=== PATIENT | female | born 1935 | race Hispanic/Latino ===

== ENCOUNTER 2018-02-07 12:14 | Observation (INO) | payer MEDICARE ==
[~2018-02-07] VITALS: Ht 165.1 cm; Wt 110.4 kg
[~2018-02-07 12:14] MED LIST: ASPIRIN81 MG PO; BENZONATATE200 MG PO; CARAFATE1 GM PO; CLONIDINE HCL0.1 MG PO; DYMISTA NASAL S23 GM INH; FLUTICASONE PRO16 GM INH; Furosemide IV; HYDROCHLOROTHIA25 MG PO; HYDROCORTISONE ACETATE RC; LASIX20 MG PO; LEVAQUIN500 MG PO; LEVOTHYROXINE75 MCG PO; LIDOCAINE700 MG TD; METOPROLOL TART50 MG PO; NORVASC10 MG PO; PREDNISONE20 MG PO; PRILOSEC OTC20 MG PO; PROAIR HFA INH8.5 GM INH; PROTONIX40 MG/ML PO; Simethicone PO; TYLENOL # 31 EA PO; ULTRAM50 MG PO
[2018-02-07] MEDS ORDERED: ONDANSETRON HCL INJ 2 MG/ML VIAL IV STA ×2 (12:43→12:45)
[2018-02-07] MEDS ORDERED: MORPHINE SULFATE INJ 4 MG/ML INJ IV STA (12:43)
[2018-02-07] MEDS ORDERED: ASPIRIN 81 MG CHEW TAB PO ONE (12:45)
[2018-02-07] MEDS ORDERED: MORPHINE SULFATE 2 MG/ML SYR IV STA (12:45)
[2018-02-07] MEDS ORDERED: DIATRIZOATE MEGL/DIATRIZOA SOD 30 ML BTL PO ONE (12:50)
[2018-02-07 13:05] LABS: BASOPHILS % 0.2 % (0.0-1.0); EOSINOPHILS # (AUTO) 0.1 (0.0-0.4); EOSINOPHILS % 0.5 % (0.0-6.0); HEMATOCRIT 36.8 % (34.2-44.1); HEMOGLOBIN 12.7 g/dL (12.0-16.0); LYMPHOCYTES # (AUTO) 0.9 (1.0-3.2); LYMPHOCYTES % 8.1 % (18.0-39.1); MEAN CORPUSCULAR HEMOGLOBIN 32.3 pg (28-32); MEAN CORPUSCULAR HGB CONC 34.5 g/dL (31-35); MEAN CORPUSCULAR VOLUME 93.6 fL (81-99); MONOCYTES # (AUTO) 0.8 (0.2-0.8); MONOCYTES % 7.5 % (4.4-11.3); NEUTROPHILS # (AUTO) 9.2 (2.1-6.9); PLATELET COUNT 156 x10e3/uL (140-360); RED BLOOD COUNT 3.93 x10e6/uL (3.6-5.1); RED CELL DISTRIBUTION WIDTH 12.7 % (11.7-14.4)
[2018-02-07] MEDS ORDERED: HYDROMORPHONE 1MG/1ML INJ IV STA (13:12)
[2018-02-07 13:16] LABS: ALBUMIN 3.7 g/dL (3.5-5.0); ALBUMIN/GLOBULIN RATIO 1.1 (0.8-2.0); ANION GAP 15.5 mmol/L (8-16); CREATININE, SERUM 0.98 mg/dL (0.57-1.11); POTASSIUM 3.5 mmol/L (3.5-5.1)
[2018-02-07 13:22] LABS: CREATINE KINASE MB 1.2 ng/mL (0-5.0)
--- NOTE | 2018-02-07 13:40 | Diagnostic Imaging Report ---
PROCEDURE: A single AP view of the chest. COMPARISON: Chest radiograph 01/24/2017 INDICATIONS: RIGHT SIDE ABDOMEN PAIN FINDINGS: Lines/tubes: None. Lungs: The lungs are well inflated and clear. There is no evidence of pneumonia or pulmonary edema. Pleura: There is no pleural effusion or pneumothorax. Heart and mediastinum: Aortic arch calcifications. Borderline enlargement of the cardiac silhouette. Bones: No acute bony abnormality. Ligamentous anchor projects over the left humeral head. Upper abdomen: No free air under the diaphragm. IMPRESSION: No acute cardiopulmonary disease. Dictated by: Silviano Boone M.D. on 02/07/2018 at 13:46 Electronically approved by: Silviano Boone M.D. on 02/07/2018 at 13:46
--- NOTE | 2018-02-07 14:45 | Diagnostic Imaging Report ---
PROCEDURE: CT ABDOMEN AND PELVIS WITHOUT CONTRAST TECHNIQUE: The abdomen and pelvis were scanned utilizing a multidetector helical scanner from the diaphragm to the lesser trochanter after the oral administration of 900 cc of Readi-Cat. No IV contrast was administered. Coronal and sagittal multiplanar reformations were obtained. DLP: 754.02 mGy-cm COMPARISON: CT abdomen and pelvis 12/30/2016 INDICATIONS: BLOATING, ABDOMINAL PAIN FINDINGS: ABSENCE OF INTRAVENOUS CONTRAST DECREASES SENSITIVITY FOR DETECTION OF FOCAL LESIONS AND VASCULAR PATHOLOGY. LOWER THORAX: Normal. HEPATOBILIARY: No focal hepatic lesions. No biliary ductal dilatation. Cholecystectomy. SPLEEN: No splenomegaly. PANCREAS: No focal masses or ductal dilatation. ADRENALS: Stable left adrenal 1.5 cm adenoma. No right renal nodules. KIDNEYS/URETERS: No hydronephrosis, stones, or solid mass lesions. Right renal 1.8 cm and 2.4 cm fluid attenuating lesions likely represent cysts, incompletely evaluated without contrast. PELVIC ORGANS/BLADDER: Hysterectomy. No adnexal masses. PERITONEUM / RETROPERITONEUM: No free air or fluid. LYMPH NODES: No lymphadenopathy. VESSELS: Severe atherosclerotic calcifications of the non-aneurysmal abdominal aorta. GI TRACT: Filling defect in the dependent aspect of the stomach may represent ingested contents. No distention or wall thickening. Diverticulosis. Appendix not visualized. BONES AND SOFT TISSUES: Scattered degenerative changes of the spine. IMPRESSION: 1. No acute non-contrast CT abnormalities in the abdomen and pelvis. 2. Left adrenal adenoma. 3. Colonic diverticulosis. Dictated by: Silviano Boone M.D. on 02/07/2018 at 14:51 Electronically approved by: Silviano Boone M.D. on 02/07/2018 at 14:51
[2018-02-07] MEDS ORDERED: ULTRAM50 MG PO (14:50)
[2018-02-07] MEDS ORDERED: SODIUM CHLORIDE 0.9% 1000ML 1,000 ML IV SCH (15:00)
[2018-02-07 15:23] LABS: BILIRUBIN,URINE NEGATIVE (NEGATIVE); CLARITY,URINE SL CLOUDY (CLEAR); COLOR,URINE YELLOW (YELLOW); KETONES,URINE NEGATIVE (NEGATIVE); LEUKOCYTE ESTERASE ,URINE TRACE (NEGATIVE); NITRITE,URINE NEGATIVE (NEGATIVE); PROTEIN,URINE DIPSTICK NEGATIVE (NEGATIVE); URINE UROBILINOGEN 0.2 mg/dL (0.2 - 1)
[2018-02-07 15:28] LABS: BACTERIA,URINE FEW /HPF; EPITHELIAL CELLS,URINE RARE /LPF; MUCUS,URINE FEW (RARE)
[2018-02-07] MEDS ORDERED: MORPHINE SULFATE 2 MG/ML SYR IV PRN (16:00)
[2018-02-07] MEDS: D5.45%NS/KCL 20MEQ 1,000 ML IV SCH (16:21)
[2018-02-07] MEDS ORDERED: HYDROCHLOROTHIA50 MG PO (16:54)
[2018-02-07] MEDS ORDERED: POTASSIUM CHLO10 ME1 PO (16:54)
[2018-02-07 17:27] VITALS: BP 166/80
[2018-02-07] MEDS: MORPHINE SULFATE INJ 4 MG/ML INJ IV PRN (17:37)
[2018-02-07] MEDS: ONDANSETRON HCL INJ 2 MG/ML VIAL IV PRN (17:37)
[2018-02-07 21:00] VITALS: BP 131/60
[2018-02-08] VITALS (7 sets, daily range): BP systolic 120–149; BP diastolic 56–78
[2018-02-08] MEDS: MORPHINE SULFATE INJ 4 MG/ML INJ IV PRN (02:46)
[2018-02-08] MEDS: D5.45%NS/KCL 20MEQ 1,000 ML IV SCH ×3 (02:47→14:53)
--- NOTE | 2018-02-08 04:37 | History and Physical ---
PRIMARY CARE DOCTOR: Dr. Manpreet Armando with [facility] HOSPITAL COVERAGE: Dr. Timbo Craft HISTORY OF PRESENT ILLNESS: Mrs. Swann is a pleasant 82-year-old female with abdominal pain. The patient has had intermittent abdominal pain for at least 5 or 6 years that she can recall. She was hospitalized once in 2016 for similar syndrome. She saw a school counsellor one time with [facility] after discharge for which she was given Pepto-Bismol, but she never finished followup as the patient allegedly had some hip problems that she had to deal with. The patient reportedly with a history of possible peptic ulcer disease. During this occasion, the patient has been having 1-1/2 days of increasing abdominal pain. There is a pattern of worsening. Pain is becoming very sharp. A little bit of nausea with no rosa emesis. No constipation. No diarrhea. She comes to the emergency room. Chest x-ray is mostly with clear lungs, except with an elevated left hemidiaphragm. CT of the abdomen and pelvis shows mostly unremarkable findings with a left adrenal adenoma, very small. Of note, lactic acid was 21. The patient with diffuse abdominal pain. She is admitted. PAST MEDICAL HISTORY: Hypertension, chronic back pain, gastritis versus peptic ulcer disease, mild asthma, and mild allergies. MEDICATIONS: List reviewed per electronic record. ALLERGIES: LOSARTAN AND IODINE ARE ALLERGIES. SOCIAL HISTORY: No smoking. No drinking. No drugs. FAMILY HISTORY: Noncontributory to this. REVIEW OF SYSTEMS GENERAL: No weight changes. OPHTHALMOLOGIC: No double vision. HEENT: No dry mouth. ENDOCRINE: No known thyroid disease. PULMONARY: No COPD. CARDIAC: No heart attacks. GI: No blood in stool. : No kidney stones. DERMATOLOGIC: No rashes. NEUROLOGIC: No seizures. PSYCHIATRIC: No depression. PHYSICAL EXAMINATION VITALS: Currently afebrile. Vital signs noted per electronic record. GENERAL: No acute distress. Alert and calm. However, she is in pain from moving her abdomen. HEENT: Normocephalic and atraumatic. NECK: Supple. Throat midline. LUNGS: Bilateral air entry. Few decreased breath sounds throughout especially at the bases. CARDIOVASCULAR: S1 and S2. No murmurs, rubs or gallops. ABDOMEN: Soft and nontender. Of note, the abdomen is with a little bit of guarding with some diffuse pain on palpation, although not surgical right now. EXTREMITIES: No clubbing. No cyanosis. There is no edema. INTEGUMENT: No rash. No purpura. LABS: Potassium 2.5, BUN 19, creatinine 1, bicarbonate 27. White count 11, hematocrit 27 and platelets 156,000. Albumin 3.7. Lactic acid 21. Urinalysis with 11-20. Blood culture times 2 pending. LFTs mostly unremarkable. IMPRESSION AND PLAN 1. Diffuse abdominal pain, possibly early peritonitis. 2. Urinary tract infection with 11-20 white cells. 3. Lactic acidosis. 4. Reported versus peptic ulcer disease. 5. Obesity. 6. Small left adrenal adenoma. 7. Hypertension. 8. Chronic back pain. At this time, continue serial followup. Repeat lactic acid. Continue IV fluids. Continue to get and provide antibiotics for presumptive infection. The patient will have serial followup. GI will be consulted. Thank you very much, Dr. Armando, for allowing me to participate in the care of Mrs. Swann. Please call for questions. Job#: [id number] DC
[2018-02-08 06:25] LABS: HIV 1&2 AB SCREEN NON-REACTIVE (NONREACTIVE)
[2018-02-08] MEDS: PIPER-TAZ 3.375 GM 50 ML IV SCH ×4 (06:43→23:37)
--- NOTE | 2018-02-08 10:58 | Diagnostic Imaging Report ---
PROCEDURE:ABDOMEN COMP INCL UPR OR DECUB TECHNIQUE:Flat and erect abdomen. INDICATION:Bloating with abdominal pain COMPARISON:[facility], CT, CT ABDOMEN/PELVIS WO, 02/07/2018, 14:26. FINDINGS:Contrast outlines the colon which is nondilated. Clips in the right upper quadrant from a previous cholecystectomy are noted. No subdiaphragmatic air. No bowel dilatation. Osseous structures reveal degenerative changes of the spine. CONCLUSION:Residual contrast within the colon from a prior CT of the abdomen/pelvis without significant abnormality. Je Butt D.O. Dictated by: Je Butt D.O. on 02/08/2018 at 11:04 Electronically approved by: Je Butt D.O. on 02/08/2018 at 11:04
[2018-02-08] MEDS: ENOXAPARIN SOD INJ 40 MG/0.4 ML SYR SC SCH (17:45)
[2018-02-09] MEDS ORDERED: PANTOPRAZOLE 40 MG 10ML VIAL IV STA (00:09)
[2018-02-09] MEDS: D5.45%NS/KCL 20MEQ 1,000 ML IV SCH ×4 (01:07→23:40)
[2018-02-09 05:05] VITALS: BP 126/62
[2018-02-09] MEDS: PIPER-TAZ 3.375 GM 50 ML IV SCH ×4 (05:32→23:45)
[2018-02-09 08:14] VITALS: BP 141/63
[2018-02-09] MEDS: PANTOPRAZOLE 40 MG 10ML VIAL IV SCH ×2 (10:01→21:01)
[2018-02-09 13:05] VITALS: BP 136/64
--- NOTE | 2018-02-09 13:31 | Operative Report ---
DATE OF PROCEDURE: February 07, 2018 REFERRING PHYSICIAN: Dr. Hardwick PROCEDURE PERFORMED: Esophagogastroduodenoscopy with biopsies. INDICATIONS FOR EGD: Upper abdominal pain. History of heartburn and indigestion. MEDICATION: Patient was done under MAC. Please see anesthesiologist's note. PROCEDURE: With the patient in the left lateral decubitus position, the flexible fiberoptic Olympus gastroscope was introduced into the esophagus under direct visualization without any difficulty. There was some patchy erythema noted in the distal esophagus. The scope was then advanced with ease into the stomach. Mucosa overlying the antrum and the body revealed some patchy intense erythema and low-grade edema, and biopsies were obtained and sent to stain for H. pylori. Pylorus appeared to be of normal contour and shape. It was intubated with ease, and the scope was advanced all the way to the 2nd portion of the duodenum. The scope was then withdrawn slowly. Mucosa overlying the proximal 2nd portion and the duodenal bulb appeared to be within normal limits. The scope was then withdrawn back into the stomach and retroflexed. Mucosa overlying the fundus and the cardia appeared to be within normal limits. The scope was then straightened out. The stomach was decompressed. The scope was subsequently withdrawn. Patient tolerated the procedure well. IMPRESSION 1. Distal esophagitis, mild. 2. Gastritis, biopsied. Biopsies sent to stain for H. pylori. PLAN: Follow up histology. Initiate Protonix 40 mg 1 p.o. q.a.m. a.c. Job#: [id number] cc:MEGGAN HARDWICK M.D.
[2018-02-09] MEDS ORDERED: FENTANYL CITRATE/PF 100MCG/2 ML INJ ONE (15:06)
--- NOTE | 2018-02-09 17:09 | Diagnostic Imaging Report ---
EXAMINATION: MRI of the thoracic and lumbar spine without contrast HISTORY: Back pain radiating to the upper and lower extremities, abdominal pain COMPARISON: Abdomen CT and 12/30/2016 TECHNIQUE: Sagittal T1, T2, STIR; axial T2 and proton density. FINDINGS: It is assumed that there are 5 lumbar vertebrae. Curvature/Alignment: Normal thoracic kyphosis and lumbar lordosis. Vertebrae: No evidence of recent fracture, infection, or neoplasm. Thoracic spinal cord: Normal morphology and signal intensity. Conus: Normal, terminating at L1 Cauda equina: Unremarkable. Lower thoracic: Unremarkable. Paraspinal soft tissues: Partially visualized T2 hyperintense probable cyst in the right kidney, please see dictation of abdomen CT on 12/30/2016 for further detail.. Degenerative changes: Thoracic spine: No significant degenerative changes, no disc herniations, no spinal canal or foraminal stenosis. L1-L2: Unremarkable. L2-L3: Unremarkable. L3-L4: Bilateral facet arthrosis with minimal anterolisthesis with minimal canal narrowing. No significant canal or foraminal stenoses, no evidence of nerve root compression. L4-L5: Minimal symmetric disc bulge and facet arthrosis without canal or foraminal stenoses L5-S1: Moderate facet arthrosis without canal or foraminal stenosis. Minimal bilateral facet joint effusion. Sacroiliac joints: Mild to joint changes bilaterally IMPRESSION: 1. No significant degenerative changes of the thoracic or lumbar spine, particularly no disc herniations, spinal canal or foraminal stenosis. 2. Normal thoracic spinal cord, conus medullaris and cauda equina nerve roots. No cord compression. 3. Minimal degenerative spondylolisthesis at L4-L5 is unchanged from abdomen CT on 12/30/2016. Signed by: Dr. Elisabet Silver M.D. on 02/09/2018 5:06 PM
[2018-02-09] MEDS: ENOXAPARIN SOD INJ 40 MG/0.4 ML SYR SC SCH (17:15)
[2018-02-09] MEDS ORDERED: PROPOFOL IV EMULSION 10 MG/ML 50 ML VIAL ONE (18:12)
[2018-02-09 19:30] VITALS: BP 130/64
[2018-02-09 21:41] VITALS: BP 130/64
[2018-02-09] MEDS ORDERED: MONTELUKAST SOD10 MG PO (22:01)
[2018-02-09] MEDS ORDERED: CETIRIZINE HCL10 MG PO (22:01)
[2018-02-09] MEDS: MORPHINE SULFATE INJ 4 MG/ML INJ IV PRN (23:46)
[2018-02-09] MEDS: ONDANSETRON HCL INJ 2 MG/ML VIAL IV PRN (23:46)
[2018-02-10] VITALS (7 sets, daily range): BP systolic 132–195; BP diastolic 61–90
--- NOTE | 2018-02-10 02:21 | Progress Note ---
DATE: February 09, 2018 INTERNAL MEDICINE PROGRESS NOTE This is Dr. Craft coverage. SUBJECTIVE: Ms. Swann was seen and examined at bedside. She continues on IV fluids at 100 mL per hour. Lot of radicular pains. There is some headache although slightly improved from previous. Patient at this time continues with assessment, and due to the pain she underwent emergency endoscopy today. REVIEW OF SYSTEMS: No bleeding, no rash. OBJECTIVE: VITAL SIGNS: Afebrile, vital signs noted per electronic record. GENERAL: No acute distress, although she is in pain when moving excessively or to the touch. HEENT: Normocephalic, atraumatic. NECK: Supple. Throat midline. LUNGS: Bilateral air entry, limited air entry at the bases especially, but clear. CARDIOVASCULAR: S1, S2. No murmurs, rubs, or gallops. ABDOMEN: Soft, nontender. EXTREMITIES: No clubbing, no cyanosis, there is no edema. INTEGUMENT: No rash, no purpura. LABS: No new updates. IMPRESSION AND PLAN: 1. Abdominal pain, not otherwise specified, improved. 2. Lactic acidosis, resolved. 3. Treat for severe sepsis, urinary tract infection as per urinalysis. 4. Hypersensitivity, possible neuropathic pain. 5. Abnormal esophagogastroduodenoscopy with mild esophagitis and mild gastropathy. Esophagogastroduodenoscopy today noted. Await biopsy report. Proton pump inhibitor will be continued. Empirical antibiotics will be continued. Follow up the urinary culture which is growing gram-negative rods. Adjust antibiotics if needed. Start some pain medications and consider gabapentin or Lyrica. Advance diet beyond clear after endoscopy. Will follow along closely. Job#: [id number]
[2018-02-10] MEDS: PIPER-TAZ 3.375 GM 50 ML IV SCH ×2 (05:31→11:40)
[2018-02-10 06:02] LABS: BASOPHILS % 0.2 % (0.0-1.0); EOSINOPHILS # (AUTO) 0.3 (0.0-0.4); EOSINOPHILS % 4.8 % (0.0-6.0); LYMPHOCYTES # (AUTO) 1.8 (1.0-3.2); LYMPHOCYTES % 29.8 % (18.0-39.1); MONOCYTES # (AUTO) 0.8 (0.2-0.8); MONOCYTES % 13.4 % (4.4-11.3); NEUTROPHILS # (AUTO) 3.1 (2.1-6.9); NEUTROPHILS % 51.3 % (38.7-80.0)
[2018-02-10 06:27] LABS: HEMATOCRIT 31.2 % (34.2-44.1); HEMOGLOBIN 10.4 g/dL (12.0-16.0); MEAN CORPUSCULAR HEMOGLOBIN 32.3 pg (28-32); MEAN CORPUSCULAR HGB CONC 33.3 g/dL (31-35); MEAN CORPUSCULAR VOLUME 96.6 fL (81-99); PLATELET COUNT 131 x10e3/uL (140-360); RED BLOOD COUNT 3.23 x10e6/uL (3.6-5.1); RED CELL DISTRIBUTION WIDTH 12.9 % (11.7-14.4)
[2018-02-10] MEDS: METOPROLOL TARTRATE 50 MG TAB PO SCH ×2 (08:23→16:46)
[2018-02-10] MEDS: LORATADINE 10 MG TAB PO SCH (08:23)
[2018-02-10] MEDS: VENLAFAXINE HCL 37.5MG XR CAP PO SCH (08:23)
[2018-02-10] MEDS: PANTOPRAZOLE 40 MG 10ML VIAL IV SCH ×2 (08:23→21:02)
[2018-02-10] MEDS: D5.45%NS/KCL 20MEQ 1,000 ML IV SCH ×2 (08:24→16:45)
[2018-02-10] MEDS ORDERED: NON-FORMULARY MEDICATION (Cetirizine Hcl 1 TAB) PO SCH (09:00)
[2018-02-10] MEDS ORDERED: KETOROLAC TROMETHAMINE 30 MG/ML VIAL IV NR (15:30)
[2018-02-10] MEDS: ALBUTEROL SULFATE HFA 8GM INHALATION AEROSOL INH PRN (15:50)
[2018-02-10] MEDS: MEROPENEM 500 MG VIAL IV SCH ×2 (16:45→21:03)
[2018-02-10] MEDS: ENOXAPARIN SOD INJ 40 MG/0.4 ML SYR SC SCH (16:45)
[2018-02-10] MEDS: SIMETHICONE 80 MG CHEW PO SCH ×2 (16:54→21:02)
--- NOTE | 2018-02-10 18:08 | Diagnostic Imaging Report ---
EXAM: ABDOMEN-1VIEW (KUB), DATE: 02/10/2018 3:19 PM INDICATION: Abdominal pain. COMPARISON: 02/08/18. FINDINGS: LINES/TUBES: None BOWEL PATTERN: No evidence for obstruction. Residual contrast within extensive descending and sigmoid colon diverticulosis. Volume of contrast has decreased since the prior examination. SOFT TISSUES: No abnormal calcifications. No mass effect. LUNG BASES: Not included BONES: No acute findings. IMPRESSION: Nonobstructive bowel gas pattern. Extensive colonic diverticulosis. Signed by: Dr. Anna Liu M.D. on 02/10/2018 6:05 PM
[2018-02-10] MEDS ORDERED: MONTELUKAST SODIUM 10 MG TAB PO SCH (21:00)
[2018-02-10] MEDS ORDERED: MEROPENEM 500MG 500 MG in SODIUM CHLORIDE 0.9% 50ML 50 ML IV SCH (22:00)
[2018-02-11] VITALS: BP 189/80
[2018-02-11] MEDS: ALBUTEROL SULFATE HFA 8GM INHALATION AEROSOL INH PRN (00:15)
[2018-02-11] MEDS ORDERED: NIFEDIPINE CR 30 MG TAB PO ONE (00:30)
[2018-02-11] MEDS ORDERED: LOSARTAN POTASSIUM 100 MG TAB PO ONE (00:30)
[2018-02-11] MEDS: D5.45%NS/KCL 20MEQ 1,000 ML IV SCH (03:55)
[2018-02-11] MEDS: ONDANSETRON HCL INJ 2 MG/ML VIAL IV PRN (04:31)
[2018-02-11] MEDS: MORPHINE SULFATE INJ 4 MG/ML INJ IV PRN (04:31)
[2018-02-11] MEDS: MEROPENEM 500 MG VIAL IV SCH ×2 (05:01→14:30)
[2018-02-11 05:37] LABS: ANION GAP 12.9 mmol/L (8-16); BLOOD UREA NITROGEN < 5 mg/dL (7-26); CALCIUM 8.9 mg/dL (8.4-10.2); CARBON DIOXIDE 28 mmol/L (22-29); CHLORIDE 103 mmol/L (98-107); CREATININE, SERUM 0.82 mg/dL (0.57-1.11); EST GLOMERULAR FILTRATION RATE > 60 ML/MIN (60-); GLUCOSE 109 mg/dL (74-118); POTASSIUM 3.9 mmol/L (3.5-5.1); SODIUM 140 mmol/L (136-145)
[2018-02-11 05:39] LABS: BUN/CREATININE RATIO 6 (6-25)
[2018-02-11 06:13] VITALS: BP 138/65
[2018-02-11 07:38] VITALS: BP 138/65
[2018-02-11] MEDS: LORATADINE 10 MG TAB PO SCH (08:21)
[2018-02-11] MEDS: VENLAFAXINE HCL 37.5MG XR CAP PO SCH (08:21)
[2018-02-11] MEDS: METOPROLOL TARTRATE 50 MG TAB PO SCH (08:21)
[2018-02-11] MEDS: SIMETHICONE 80 MG CHEW PO SCH ×2 (08:21→13:00)
[2018-02-11] MEDS: PANTOPRAZOLE 40 MG 10ML VIAL IV SCH (08:21)
[2018-02-11 08:37] VITALS: BP 156/70
[2018-02-11] MEDS ORDERED: LOSARTAN POTASSIUM 100 MG TAB PO SCH (09:00)
[2018-02-11] MEDS ORDERED: GABAPENTIN 300 MG CAP PO SCH (09:00)
[2018-02-11 11:56] VITALS: BP 128/58
[2018-02-11] MEDS ORDERED: PROCARDIA XL30 MG PO (13:40)
--- NOTE | 2018-02-11 15:02 | Discharge Summary ---
PR[facility] CARE DOCTOR[facility] FINAL DIAGNOSIS: Abdominal pain. SECONDARY DIAGNOSES 1. Uncontrolled hypertension, better. 2. Mild distal esophagitis and gastritis per esophagogastroduodenoscopy. 3. 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 4. Morbid obesity. CONSULTANTS: Dr. Akins, GI. PROCEDURES/STUDIES PERFORMED 1. Esophagogastroduodenoscopy. 2. Abdominal computerized tomography. 3. MRI of the spine. HISTORY: Per H and P. HOSPITAL COURSE: The patient was admitted for abdominal pain workup. Abdominal CT with p.o. contrast only was unremarkable. EGD was performed with the above results. PPI was started. Biopsy was taken. However, results are still pending. The patient will follow up with Dr. Akins if this is allowed by [facility]. If not, she will follow up with [facility] doctor. For her uncontrolled hypertension, nifedipine XL was started. Her blood pressure is better. She also has ESBL Klebsiella on urine culture. However, it is only 10,000 to 50,000, and her UA only shows trace leukocyte esterase with 10-20 wbcs. The patient is completely asymptomatic. Therefore, I feel that this is a colonization. The patient received 3 doses of meropenem. I have updated her primary care doctor on this issue. The patient's abdominal pain improved with simethicone. Currently, tolerating soft diet. The patient also received 1 dose of IV Toradol for possible radiculopathy. However, her MRI of the spine was not very significant. The patient was seen and examined today. I have discussed with Dr. Akins today, and also updated her primary care doctor about this hospitalization. CONDITION ON DISCHARGE: Improved. DISCHARGE MEDICATIONS: Please see medication reconciliation form. MEGGAN HARDWICK M.D. Job#: [id number] RI cc: ALFREDO LIN MD
[2018-02-11] MEDS ORDERED: NIFEDIPINE CR 30 MG TAB PO SCH (21:00)
== END 2018-02-11 16:03 | disposition home or self-care (01) ==
LOC: ER 12:14 → ERHOLD 15:57 → IMCU 17:05
PROVIDERS: ADMIT Internal Medicine; ATTEND Internal Medicine
DX: K29.70 Gastritis, unspecified, without bleeding (principal); R10.10 Upper abdominal pain, unspecified; R10.84 Generalized abdominal pain; I10 Essential (primary) hypertension; R11.2 Nausea with vomiting, unspecified; R63.0 Anorexia; G89.29 Other chronic pain; D35.02 Benign neoplasm of left adrenal gland; E87.2 Acidosis; K27.9 Peptic ulcer, site unspecified, unspecified as acute or chronic, without hemorrhage or perforation; K20.9 Esophagitis, unspecified; R20.8 Other disturbances of skin sensation; R12 Heartburn; B96.1 Klebsiella pneumoniae [K. pneumoniae] as the cause of diseases classified elsewhere; Z16.12 Extended spectrum beta lactamase (ESBL) resistance; E66.01 Morbid (severe) obesity due to excess calories; Z68.41 Body mass index [BMI] 40.0-44.9, adult; M54.16 Radiculopathy, lumbar region; Z22.39 Carrier of other specified bacterial diseases
CPT/HCPCS: 36415 ×4; 43239; 71045; 72146; 72148; 74018; 74176; 80048; 80053; 81001; 82550; 82553; 83605 ×2; 83690; 84484; 85025 ×2; 85027; 85651; 86140; 87040; 87086; 87186; 87205; 87390; 88305; 88312; 93005; 94640 ×2; 99284; G0378 ×5; G0433; G0435; J1650 ×3; J1885; J2185 ×2; J2270 ×5; J2405 ×4; J2543 ×3; J7030

== ENCOUNTER 2018-08-02 10:58 | Emergency (ER) | payer MEDICARE ==
[~2018-08-02] VITALS: Ht 165.1 cm; Wt 110.2 kg
[~2018-08-02 10:58] MED LIST changes: +CETIRIZINE HCL10 MG PO; +HYDROCHLOROTHIA50 MG PO; +MONTELUKAST SOD10 MG PO; +POTASSIUM CHLO10 ME1 PO; +PROCARDIA XL30 MG PO
[2018-08-02] MEDS ORDERED: ACETAMINOPHEN/CODEINE 300MG - 30MG TAB PO ONE (11:30)
[2018-08-02 11:52] LABS: STREPTOCOCCUS GRP A ANTIGEN NEGATIVE (NEGATIVE)
[2018-08-02 12:01] LABS: INFLUENZAE A&B ANTIGEN (RAPID) NEGATIVE (NEGATIVE)
--- NOTE | 2018-08-02 12:42 | Diagnostic Imaging Report ---
EXAMINATION: CHEST 2 VIEWS INDICATION: Chest pain. COMPARISON: None FINDINGS: TUBES and LINES: None. LUNGS: Lungs are well inflated. Mild patchy left basilar opacity, likely atelectasis. There is no evidence of pneumonia or pulmonary edema. PLEURA: No pleural effusion or pneumothorax. HEART AND MEDIASTINUM: The cardiomediastinal silhouette is unremarkable. Atherosclerotic calcification of the aortic arch. BONES AND SOFT TISSUES: No acute osseous abnormality. Rotator cuff anchors are partially seen within the left humeral head. UPPER ABDOMEN: No free air under the diaphragm. Atherosclerotic aortic calcifications. Surgical clips project over the upper abdomen. IMPRESSION: No acute radiographic abnormality. Signed by: Dr. Drew Juarez MD on 08/02/2018 12:38 PM
--- NOTE | 2018-08-02 13:06 | NUR ---
BP ELEVATED. SYSTOLIC 190'S. PATIENT DID NOT TAKE AM MEDS. SHE IS TAKING THEM NOW PRIOR TO DISCHARGE. METOPROLOL/ HCTZ
== END 2018-08-02 13:09 | disposition home or self-care (01) ==
LOC: ER 10:58
DX: R50.9 Fever, unspecified (principal); R05 Cough; J09.X2 Influenza due to identified novel influenza A virus with other respiratory manifestations; I10 Essential (primary) hypertension; E11.9 Type 2 diabetes mellitus without complications
CPT/HCPCS: 71046; 83518; 87070; 87400; 93005; 99283

== ENCOUNTER 2018-10-15 08:04 | Emergency (ER) | payer MEDICARE ==
[~2018-10-15] VITALS: Ht 165.1 cm; Wt 110.2 kg
[~2018-10-15 08:04] MED LIST changes: +MECLIZINE HCL12.5 MG PO
[2018-10-15] MEDS ORDERED: KETOROLAC TROMETHAMINE 30 MG/ML VIAL IV ONE (09:30)
[2018-10-15 09:50] LABS: BASOPHILS % 0.2 % (0.0-1.0); EOSINOPHILS # (AUTO) 0.1 (0.0-0.4); EOSINOPHILS % 1.5 % (0.0-6.0); HEMATOCRIT 37.7 % (34.2-44.1); HEMOGLOBIN 12.8 g/dL (12.0-16.0); LYMPHOCYTES # (AUTO) 1.8 (1.0-3.2); LYMPHOCYTES % 18.5 % (18.0-39.1); MEAN CORPUSCULAR HEMOGLOBIN 31.1 pg (28-32); MEAN CORPUSCULAR VOLUME 91.5 fL (81-99); MONOCYTES # (AUTO) 0.9 (0.2-0.8); NEUTROPHILS # (AUTO) 6.7 (2.1-6.9); NEUTROPHILS % 70.2 % (38.7-80.0); PLATELET COUNT 194 x10e3/uL (140-360); RED BLOOD COUNT 4.12 x10e6/uL (3.6-5.1); RED CELL DISTRIBUTION WIDTH 12.7 % (11.7-14.4)
[2018-10-15 09:59] LABS: ALBUMIN 3.6 g/dL (3.5-5.0); ALBUMIN/GLOBULIN RATIO 1.1 (0.8-2.0); ANION GAP 12.4 mmol/L (8-16); CALCIUM 8.9 mg/dL (8.4-10.2); CREATININE, SERUM 0.94 mg/dL (0.57-1.11); POTASSIUM 3.4 mmol/L (3.5-5.1)
[2018-10-15 10:01] LABS: INR 0.96; PROTHROMBIN TIME 13.3 seconds (11.9-14.5)
[2018-10-15 10:02] LABS: PARTIAL THROMBOPLASTIN TIME 30.6 seconds (23.8-35.5)
[2018-10-15 10:08] LABS: CREATINE KINASE MB 1.1 ng/mL (0-5.0)
[2018-10-15 13:17] VITALS: BP 131/82
== END 2018-10-15 13:26 | disposition home or self-care (01) ==
LOC: ER 08:04
DX: M25.552 Pain in left hip (principal); M79.652 Pain in left thigh; M25.562 Pain in left knee; M79.662 Pain in left lower leg; R26.2 Difficulty in walking, not elsewhere classified; I10 Essential (primary) hypertension; E11.9 Type 2 diabetes mellitus without complications; E03.9 Hypothyroidism, unspecified; Z86.73 Personal history of transient ischemic attack (TIA), and cerebral infarction without residual deficits
CPT/HCPCS: 36415; 80053; 82550; 82553; 84484; 85025; 85610; 85730; 93005; 93971; 99283; J1885

== ENCOUNTER 2018-12-17 11:57 | Emergency (ER) | payer MEDICARE ==
[~2018-12-17] VITALS: Ht 165.1 cm; Wt 110.2 kg
--- NOTE | 2018-12-17 12:28 | NUR ---
PT TRANSPORTED VIA W/C BY CHARGE NURSE INTO ER #4. DAUGHTER AT BEDSIDE. PT GOWNED AND PLACED ON MONITOR. C/O CHEST PAIN, SOB, LEFT ARM PAIN AND SEVERE PRESSURE IN LOWER OCCIPUT. PAIN 10/10.
[2018-12-17 13:00] LABS: BASOPHILS % 0.1 % (0.0-1.0); EOSINOPHILS # (AUTO) 0.1 (0.0-0.4); EOSINOPHILS % 1.3 % (0.0-6.0); HEMATOCRIT 35.9 % (34.2-44.1); HEMOGLOBIN 12.1 g/dL (12.0-16.0); LYMPHOCYTES # (AUTO) 1.7 (1.0-3.2); MEAN CORPUSCULAR HEMOGLOBIN 31.5 pg (28-32); MEAN CORPUSCULAR HGB CONC 33.7 g/dL (31-35); MEAN CORPUSCULAR VOLUME 93.5 fL (81-99); MONOCYTES # (AUTO) 0.6 (0.2-0.8); MONOCYTES % 6.7 % (4.4-11.3); NEUTROPHILS # (AUTO) 6.5 (2.1-6.9); NEUTROPHILS % 72.3 % (38.7-80.0); PLATELET COUNT 174 x10e3/uL (140-360); RED BLOOD COUNT 3.84 x10e6/uL (3.6-5.1); RED CELL DISTRIBUTION WIDTH 12.9 % (11.7-14.4)
[2018-12-17 13:23] LABS: ALBUMIN 3.7 g/dL (3.5-5.0); ALBUMIN/GLOBULIN RATIO 1.1 (0.8-2.0); ANION GAP 16.5 mmol/L (8-16); CALCIUM 9.1 mg/dL (8.4-10.2); CREATININE, SERUM 1.02 mg/dL (0.57-1.11); POTASSIUM 3.5 mmol/L (3.5-5.1)
[2018-12-17 13:30] LABS: CREATINE KINASE MB 1.1 ng/mL (0-5.0)
[2018-12-17 13:38] LABS: BILIRUBIN,URINE NEGATIVE (NEGATIVE); CLARITY,URINE CLEAR (CLEAR); COLOR,URINE YELLOW (YELLOW); KETONES,URINE NEGATIVE (NEGATIVE); LEUKOCYTE ESTERASE ,URINE SMALL (NEGATIVE); NITRITE,URINE NEGATIVE (NEGATIVE); PROTEIN,URINE DIPSTICK NEGATIVE (NEGATIVE); URINE UROBILINOGEN 0.2 mg/dL (0.2 - 1)
[2018-12-17 13:45] LABS: EPITHELIAL CELLS,URINE MODERATE /LPF
[2018-12-17] MEDS ORDERED: MORPHINE SULFATE INJ 4 MG/ML INJ 1ML IV PRN (13:45)
--- NOTE | 2018-12-17 13:51 | NUR ---
WAS NOTIFIED BY [facility] NURSE THAT LAB NEEDS ANOTHER BLUE TOP TUBE. BLOOD DRAWN AND SENT.
--- NOTE | 2018-12-17 14:00 | NUR ---
ASSISTED PT TO RESTROOM VIA W/C WITH DAUGHTER ASSISTING PT INSIDE THE RESTROOM.
--- NOTE | 2018-12-17 14:27 | Diagnostic Imaging Report ---
EXAMINATION: CHEST 2 VIEWS INDICATION: Shortness of breath. Tightness in the upper chest. Left shoulder pain. COMPARISON: Chest x-ray 10/02/2018 FINDINGS: PA and lateral views TUBES and LINES: None. LUNGS: Lungs are well inflated. Lungs are clear. There is no evidence of pneumonia or pulmonary edema. PLEURA: No pleural effusion or pneumothorax. HEART AND MEDIASTINUM: The cardiomediastinal silhouette is unremarkable. There are atherosclerotic calcifications within the aorta. BONES AND SOFT TISSUES: No acute osseous lesion. Soft tissues are unremarkable. UPPER ABDOMEN: No free air under the diaphragm. IMPRESSION: No acute thoracic abnormality. Signed by: Dr. Joel Palomares M.D. on 12/17/2018 2:24 PM
[2018-12-17 14:34] LABS: INR 0.91; PARTIAL THROMBOPLASTIN TIME 28.8 seconds (23.8-35.5); PROTHROMBIN TIME 12.7 seconds (11.9-14.5)
--- NOTE | 2018-12-17 14:41 | Diagnostic Imaging Report ---
EXAMINATION: Head CT HISTORY: Vertigo, bilateral ear pressure, swelling of the bilateral TMJs. COMPARISON: Head CT 10/02/2018 TECHNIQUE: Multidetector axial images were obtained without contrast from the foramen magnum to the vertex . The images were reconstructed using brain and bone algorithms. Thin section brain images were reformatted into coronal and sagittal planes. Image quality: Motion/streaking artifact limits the evaluation of the skull study mostly in the posterior fossa/skull base. Dose modulation, iterative reconstruction, and/or weight based adjustment of the mA/kV was utilized to reduce the radiation dose to as low as reasonably achievable. FINDINGS: Parenchyma: 1. No abnormal densities. 2. No mass or hemorrhage. No CT evidence of acute territorial vascular insult. Extra-axial spaces:No abnormal density. No extra-axial fluid collections Brain volume: Normal for age. Ventricles: No hydrocephalus or displacement. Arteries: No density suggestive of thrombus. Atherosclerotic calcification of the cavernous and supraclinoid internal carotid and V4 segments of the bilateral vertebral arteries. Dural sinuses: No abnormal density. Extra-axial spaces: No abnormal density. Foramen magnum: No mass, Chiari malformation, or basilar invagination. Sella: No obvious mass. Paranasal/mastoid sinuses: Persistent complete opacification with thickened aiken of the left maxillary sinus, otherwise clear paranasal sinuses. Incidentally noted probable supernumerary unerupted tooth in the right paramedian maxilla. Skull/Scalp: No lytic or blastic lesions. No fractures. IMPRESSION: No intracranial abnormalities, unchanged compared to head CT of 10/02/2018. Signed by: Dr. Elisabet Silver M.D. on 12/17/2018 2:37 PM
[2018-12-17] MEDS ORDERED: PREDNISONE20 MG PO (16:04)
[2018-12-17] MEDS ORDERED: AUGMENTIN 875-1 EACH PO (16:04)
--- NOTE | 2018-12-17 16:14 | Diagnostic Imaging Report ---
EXAMINATION: CT of the face HISTORY: Bilateral ear pressure, vertigo, TMJ swelling. COMPARISON: Head CT performed on the same day TECHNIQUE: Multidetector helical axial images were acquired through the face without contrast and were reconstructed in bone and soft tissue algorithms. Images were viewed in multiplanar format. Dose modulation, iterative reconstruction, and/or weight based adjustment of the mA/kV was utilized to reduce the radiation dose to as low as reasonably achievable. FINDINGS: Bones: Mild degenerative changes of the left TMJ with tiny hyperdense fragment versus ossified menisci bilaterally Facial soft tissues: Unremarkable. Paranasal sinuses and drainage pathways: Again noted small and completely complete opacified left maxillary sinus with prominent thickened/sclerotic aiken, likely sequela from prior trauma, surgery or infection/chronic inflammatory process. The frontal, ethmoidal, right maxillary and sphenoid sinuses are grossly clear. The ostiomeatal units, fronto-nasal and spheno-ethmoidal recesses are clear. Orbits contents: The lenses are not visualized, likely from prior cataract surgery. Mild proptosis with prominence of the intra and extraconal fat, no discrete mass or inflammatory process. Nasal septum: Midline. Anatomic variations: No significant anatomic variations. Dentition: No acute abnormality of the visualized teeth. IMPRESSION: 1. Small, completely opacified left maxillary sinus as detailed above. 2. The remaining paranasal sinuses and drainage pathways are clear. 3. Possible calcification of the TMJ menisci, if clinically indicated a dedicated TMJ MRI may be obtained to further evaluate. Signed by: Dr. Elisabet Silver M.D. on 12/17/2018 4:10 PM
[2018-12-17 19:27] VITALS: BP 140/75
== END 2018-12-17 17:48 | disposition home or self-care (01) ==
LOC: ER 11:57
DX: R05 Cough (principal); H92.03 Otalgia, bilateral; R53.1 Weakness; J32.0 Chronic maxillary sinusitis; J32.2 Chronic ethmoidal sinusitis; J32.1 Chronic frontal sinusitis; J32.3 Chronic sphenoidal sinusitis
CPT/HCPCS: 36415; 70450; 70486; 71046; 80053; 81001; 82550; 82553; 83880; 84484; 85025; 85610; 85730; 93005; 99284; J2270

== ENCOUNTER 2019-03-27 17:58 | Emergency (ER) | payer MEDICARE ==
[~2019-03-27] VITALS: Ht 165.1 cm; Wt 110.2 kg
[~2019-03-27 17:58] MED LIST changes: +AUGMENTIN 875-1 EACH PO
[2019-03-27] MEDS ORDERED: ALBUTEROL SULF 0.083% NEB SOLN 3 ML NEB NEB STA ×2 (18:16→21:46)
[2019-03-27] MEDS ORDERED: IPRATROPIUM BROMIDE 0.02% 2.5 ML NEB NEB ONE (18:30)
[2019-03-27] MEDS ORDERED: HYDROCODONE/CHLORPHENIRAMINE 5 ML LIQCR PO PRN (18:30)
[2019-03-27 18:35] LABS: BASOPHILS % 0.1 % (0.0-1.0); EOSINOPHILS # (AUTO) 0.1 (0.0-0.4); EOSINOPHILS % 0.9 % (0.0-6.0); HEMATOCRIT 37.4 % (34.2-44.1); HEMOGLOBIN 12.7 g/dL (12.0-16.0); LYMPHOCYTES # (AUTO) 1.6 (1.0-3.2); MEAN CORPUSCULAR HEMOGLOBIN 32.1 pg (28-32); MEAN CORPUSCULAR VOLUME 94.4 fL (81-99); MONOCYTES % 9.7 % (4.4-11.3); NEUTROPHILS # (AUTO) 7.7 (2.1-6.9); NEUTROPHILS % 73.4 % (38.7-80.0); PLATELET COUNT 214 x10e3/uL (140-360); RED BLOOD COUNT 3.96 x10e6/uL (3.6-5.1); RED CELL DISTRIBUTION WIDTH 12.8 % (11.7-14.4)
[2019-03-27 18:42] LABS: INR 0.89; PARTIAL THROMBOPLASTIN TIME 29.2 seconds (23.8-35.5); PROTHROMBIN TIME 12.5 seconds (11.9-14.5)
[2019-03-27 18:52] LABS: ALBUMIN 3.5 g/dL (3.5-5.0); ALBUMIN/GLOBULIN RATIO 0.9 (0.8-2.0); ANION GAP 16.8 mmol/L (8-16); CALCIUM 9.2 mg/dL (8.4-10.2); CREATININE, SERUM 1.17 mg/dL (0.57-1.11); MAGNESIUM 1.7 MG/DL (1.3-2.1); POTASSIUM 3.8 mmol/L (3.5-5.1)
[2019-03-27 18:59] LABS: CREATINE KINASE MB 1.6 ng/mL (0-5.0)
[2019-03-27 19:07] LABS: B-TYPE NATRIURETIC PEPTIDE2 15.2 pg/mL (0-100)
--- NOTE | 2019-03-27 19:23 | Diagnostic Imaging Report ---
Frontal and lateral views of the chest. HISTORY: Sore throat, wheezing, shortness of breath, cough COMPARISON: Chest radiograph October 02, 2018. DISCUSSION: Lungs: Mild left basilar peripheral volume loss. No evidence of a consolidative pneumonia or pulmonary alveolar edema. Pleura: No pleural effusion or pneumothorax. Heart and mediastinum: The cardiomediastinal silhouette appear(s) unremarkable. Bones and soft tissues: Accentuation of the thoracic kyphosis and multilevel degenerative disc changes. Other: Diffuse scattered atherosclerotic vascular calcifications. IMPRESSION: 1. Mild left basilar peripheral atelectasis versus scarring. Recommend short term follow up routine PA and lateral chest radiographs, in 6 to 8 weeks, to evaluate for resolution. 2. No consolidative pneumonia. Signed by: Dr. Elton Landon D.O., M.M.M. on 03/27/2019 7:20 PM
[2019-03-27] MEDS ORDERED: METHYLPREDNISOLONE SOD SUCC 125 MG/2ML VIAL IV STA (20:06)
[2019-03-27] MEDS ORDERED: ACETAMINOPHEN/CODEINE 300MG - 30MG TAB PO ONE (20:15)
[2019-03-27 20:26] LABS: STREPTOCOCCUS GRP A ANTIGEN NEGATIVE (NEGATIVE)
[2019-03-27 20:35] LABS: INFLUENZAE A&B ANTIGEN (RAPID) NEGATIVE (NEGATIVE)
[2019-03-27 21:08] LABS: BILIRUBIN,URINE NEGATIVE (NEGATIVE); CLARITY,URINE SL CLOUDY (CLEAR); COLOR,URINE YELLOW (YELLOW); KETONES,URINE NEGATIVE (NEGATIVE); LEUKOCYTE ESTERASE ,URINE SMALL (NEGATIVE); NITRITE,URINE NEGATIVE (NEGATIVE); PROTEIN,URINE DIPSTICK NEGATIVE (NEGATIVE); URINE UROBILINOGEN 0.2 mg/dL (0.2 - 1)
[2019-03-27] MEDS ORDERED: SODIUM CHLORIDE 0.9% 1000ML 1,000 ML IV STA (21:08)
[2019-03-27 21:23] LABS: BACTERIA,URINE RARE /HPF; RBC,URINE 0-5 /HPF (0-5); WBC,URINE (MAN) 0-5 /HPF (0-5)
[2019-03-27 21:24] LABS: EPITHELIAL CELLS,URINE RARE /LPF; RENAL EPITHELIAL CELLS,URINE RARE; TRANSITIONAL EPI CELLS,URINE RARE
[2019-03-27] MEDS ORDERED: IPRATROPIUM BROMIDE 0.02% 2.5 ML NEB NEB STA (21:46)
--- NOTE | 2019-03-27 21:47 | NUR ---
pt ambulated in hallway per coin box inspector request. pt assisted back to room c pulse ox assessed. o2 sat 94%, resp rate 25-27, slightly labored. coin box inspector informed.
[2019-03-27 22:04] LABS: CREATINE KINASE MB 1.6 ng/mL (0-5.0)
[2019-03-27 23:39] VITALS: BP 151/80
== END 2019-03-27 23:56 | disposition home or self-care (01) ==
LOC: ER 17:58
DX: R05 Cough (principal); J20.9 Acute bronchitis, unspecified
CPT/HCPCS: 36415; 71046; 80053; 81001; 82550; 82553; 82948; 83518; 83605; 83735; 83880; 84484; 85025; 85610; 85730; 87040; 87070; 87086; 87400; 93005; 94640; 99284; J2930; J7030

== ENCOUNTER 2020-10-06 13:47 | Emergency (ER) | payer MEDICARE ==
[~2020-10-06] VITALS: Ht 165.1 cm; Wt 104.3 kg
[2020-10-06] MEDS ORDERED: JARDIANCE25 MG (14:08)
[2020-10-06] MEDS ORDERED: VENLAFAXINE HCL75 MG PO (14:08)
[2020-10-06] MEDS ORDERED: TRAMADOL HCL 50 MG TAB PO ONE (14:30)
[2020-10-06] MEDS ORDERED: TRAMADOL HCL 50 MG TAB PO NR (14:30)
[2020-10-06] MEDS ORDERED: POTASSIUM CHLORIDE 20 MEQ TAB CR PO NR (15:33)
[2020-10-06] MEDS ORDERED: POTASSIUM CHLORIDE 20 MEQ TAB CR PO ONE (15:52)
[2020-10-06 18:42] VITALS: BP 135/70
== END 2020-10-06 18:30 | disposition other institution (70) ==
LOC: FSED 14:20
DX: R07.9 Chest pain, unspecified (principal); S00.83XA Contusion of other part of head, initial encounter; S40.012A Contusion of left shoulder, initial encounter; S40.011A Contusion of right shoulder, initial encounter; S13.4XXA Sprain of ligaments of cervical spine, initial encounter; W18.30XA Fall on same level, unspecified, initial encounter; Y93.01 Activity, walking, marching and hiking; Z20.822 Contact with and (suspected) exposure to COVID-19; I10 Essential (primary) hypertension; E11.65 Type 2 diabetes mellitus with hyperglycemia; E78.5 Hyperlipidemia, unspecified; K21.9 Gastro-esophageal reflux disease without esophagitis; I25.10 Atherosclerotic heart disease of native coronary artery without angina pectoris
CPT/HCPCS: 70450; 71250; 72125; 74176; 80048; 80076; 82553; 84484; 85025; 93005; 99284; U0002

== ENCOUNTER 2021-03-29 15:38 | Emergency (ER) | payer MEDICARE ==
[~2021-03-29] VITALS: Ht 165.1 cm; Wt 104.3 kg
[~2021-03-29 15:38] MED LIST changes: +JARDIANCE25 MG; +VENLAFAXINE HCL75 MG PO
[2021-03-29] MEDS ORDERED: TRAMADOL HCL 50 MG TAB PO ONE (17:15)
[2021-03-29 17:51] LABS: BASOPHILS % 0.2 % (0.0-1.0); EOSINOPHILS # (AUTO) 0.2 (0.0-0.4); EOSINOPHILS % 2.1 % (0.0-6.0); HEMATOCRIT 37.7 % (34.2-44.1); HEMOGLOBIN 11.8 g/dL (12.0-16.0); LYMPHOCYTES # (AUTO) 1.7 (1.0-3.2); LYMPHOCYTES % 20.2 % (18.0-39.1); MEAN CORPUSCULAR HEMOGLOBIN 30.2 pg (28-32); MEAN CORPUSCULAR HGB CONC 31.3 g/dL (31-35); MEAN CORPUSCULAR VOLUME 96.4 fL (81-99); MONOCYTES # (AUTO) 0.8 (0.2-0.8); MONOCYTES % 9.4 % (4.4-11.3); NEUTROPHILS # (AUTO) 5.5 (2.1-6.9); NEUTROPHILS % 67.1 % (38.7-80.0); PLATELET COUNT 187 x10e3/uL (140-360); RED BLOOD COUNT 3.91 x10e6/uL (3.6-5.1); RED CELL DISTRIBUTION WIDTH 13.5 % (11.7-14.4)
[2021-03-29 17:53] LABS: INR 1.02; PROTHROMBIN TIME 13.6 seconds (11.9-14.5)
[2021-03-29 17:54] LABS: PARTIAL THROMBOPLASTIN TIME 28.1 seconds (23.8-35.5)
[2021-03-29 17:54] LABS: CLARITY,URINE CLEAR (CLEAR); COLOR,URINE YELLOW (YELLOW); KETONES,URINE NEGATIVE (NEGATIVE); LEUKOCYTE ESTERASE ,URINE NEGATIVE (NEGATIVE); NITRITE,URINE NEGATIVE (NEGATIVE); PROTEIN,URINE DIPSTICK NEGATIVE (NEGATIVE); URINE UROBILINOGEN 0.2 mg/dL (0.2 - 1)
[2021-03-29 18:02] LABS: MAGNESIUM 1.8 MG/DL (1.3-2.1)
[2021-03-29 18:04] LABS: ALANINE AMINOTRANSFERASE 9 IU/L (0-55); ALBUMIN 3.8 g/dL (3.5-5.0); ALBUMIN/GLOBULIN RATIO 1.2 (0.8-2.0); ALKALINE PHOSPHATASE 116 IU/L (40-150); ANION GAP 12.2 mmol/L (8-16); BLOOD UREA NITROGEN 17 mg/dL (7-26); BUN/CREATININE RATIO 16 (6-25); CALCIUM 8.7 mg/dL (8.4-10.2); CARBON DIOXIDE 29 mmol/L (22-29); CHLORIDE 103 mmol/L (98-107); CREATINE KINASE 31 IU/L (29-168); CREATININE, SERUM 1.04 mg/dL (0.57-1.11); EST GLOMERULAR FILTRATION RATE 50 ML/MIN (60-); GLUCOSE 148 mg/dL (74-118); POTASSIUM 4.2 mmol/L (3.5-5.1); SODIUM 140 mmol/L (136-145)
[2021-03-29 18:11] LABS: BACTERIA,URINE RARE /HPF; EPITHELIAL CELLS,URINE FEW /LPF; RBC,URINE 0-5 /HPF (0-5); WBC,URINE (MAN) 0-5 /HPF (0-5)
[2021-03-29] MEDS ORDERED: ULTRAM50 MG PO (19:27)
== END 2021-03-29 20:05 | disposition home or self-care (01) ==
LOC: ER 17:13
DX: M54.42 Lumbago with sciatica, left side (principal); M25.462 Effusion, left knee; R42 Dizziness and giddiness; K29.70 Gastritis, unspecified, without bleeding; R94.31 Abnormal electrocardiogram [ECG] [EKG]; I10 Essential (primary) hypertension; E11.65 Type 2 diabetes mellitus with hyperglycemia; E78.5 Hyperlipidemia, unspecified; K21.9 Gastro-esophageal reflux disease without esophagitis; E03.9 Hypothyroidism, unspecified
CPT/HCPCS: 36415; 70450; 72131; 80053; 81001; 82150; 82550; 82553; 83690; 83735; 84484; 85025; 85610; 85730; 93005; 93971; 99283

== ENCOUNTER 2021-04-22 08:28 | Emergency (ER) | payer MEDICARE ==
[~2021-04-22] VITALS: Ht 165.1 cm; Wt 107.5 kg
[2021-04-22] MEDS ORDERED: AZITHROMYCIN250 MG PO (09:43)
[2021-04-22] MEDS ORDERED: OBREDON 2.5-20118 ML PO (09:43)
== END 2021-04-22 09:48 | disposition home or self-care (01) ==
LOC: FSED 08:30
DX: J18.9 Pneumonia, unspecified organism (principal); R05.9 Cough, unspecified; R51.9 Headache, unspecified; I10 Essential (primary) hypertension; E11.9 Type 2 diabetes mellitus without complications; E78.5 Hyperlipidemia, unspecified; K21.9 Gastro-esophageal reflux disease without esophagitis; I25.10 Atherosclerotic heart disease of native coronary artery without angina pectoris
CPT/HCPCS: 71045; 87400; 87420; 99283

== ENCOUNTER 2021-05-25 13:50 | Inpatient (IN) | payer MEDICARE ==
[~2021-05-25] VITALS: Ht 165.1 cm; Wt 120.4 kg
[~2021-05-25 13:50] MED LIST changes: +AZITHROMYCIN250 MG PO; +OBREDON 2.5-20118 ML PO
[2021-05-25] MEDS ORDERED: ALBUTEROL/IPRATROPIUM 3 ML NEB NEB ONE (14:00)
[2021-05-25] MEDS ORDERED: METHYLPREDNISOLONE SOD SUCC 125 MG/2ML VIAL IV ONE (14:00)
[2021-05-25] MEDS ORDERED: METHYLPREDNISOLONE SOD SUCC 125 MG/2ML VIAL ONE (14:07)
[2021-05-25] MEDS ORDERED: ALBUTEROL/IPRATROPIUM 3 ML NEB ONE ×2 (14:07→14:39)
[2021-05-25] MEDS: ALBUTEROL/IPRATROPIUM 3 ML NEB NEB SCH ×3 (14:29→23:00)
[2021-05-25] MEDS ORDERED: ONDANSETRON HCL INJ 2MG/ML 2ML 2 MG/ML VIAL IV PRN (14:45)
[2021-05-25] MEDS ORDERED: SODIUM CHLORIDE FLUSH 10 ML SYR INJ PRN (14:45)
[2021-05-25] MEDS ORDERED: CEFTRIAXONE 1 GM VIAL IM ONE (15:00)
[2021-05-25] MEDS ORDERED: CEFTRIAXONE 1 GM VIAL ONE (15:11)
[2021-05-25 15:58] VITALS: BP 143/68
[2021-05-25] MEDS ORDERED: ALBUTEROL SULFATE HFA 8GM INHALATION AEROSOL INH PRN (16:15)
[2021-05-25 16:22] VITALS: BP 164/85
[2021-05-25] MEDS: INSULIN REGULAR, HUMAN 100 UNIT/1 ML SQ SCH ×2 (16:30→21:55)
[2021-05-25] MEDS ORDERED: DEXTROSE 50% SYRINGE 50 ML IV PRN (16:30)
[2021-05-25 16:52] LABS: BASOPHILS % 0.1 % (0.0-1.0); EOSINOPHILS % 0.1 % (0.0-6.0); HEMATOCRIT 40.2 % (34.2-44.1); HEMOGLOBIN 12.4 g/dL (12.0-16.0); LYMPHOCYTES # (AUTO) 0.6 (1.0-3.2); LYMPHOCYTES % 6.7 % (18.0-39.1); MEAN CORPUSCULAR HEMOGLOBIN 30.4 pg (28-32); MEAN CORPUSCULAR HGB CONC 30.8 g/dL (31-35); MEAN CORPUSCULAR VOLUME 98.5 fL (81-99); MONOCYTES # (AUTO) 0.5 (0.2-0.8); MONOCYTES % 5.8 % (4.4-11.3); NEUTROPHILS # (AUTO) 7.9 (2.1-6.9); PLATELET COUNT 154 x10e3/uL (140-360); RED BLOOD COUNT 4.08 x10e6/uL (3.6-5.1)
[2021-05-25 17:10] LABS: ALBUMIN 3.9 g/dL (3.5-5.0); ALBUMIN/GLOBULIN RATIO 1.1 (0.8-2.0); ANION GAP 17.8 mmol/L (8-16); CALCIUM 9.3 mg/dL (8.4-10.2); CREATININE, SERUM 1.22 mg/dL (0.57-1.11); POTASSIUM 3.8 mmol/L (3.5-5.1)
[2021-05-25] MEDS: METOPROLOL TARTRATE 50 MG TAB PO SCH (17:57)
[2021-05-25] MEDS: FLUTICASONE PROPIONATE NASAL SPRAY NS SCH (18:44)
[2021-05-25 20:00] VITALS: BP 177/76
[2021-05-25] MEDS ORDERED: ASPIRIN 81 MG CHEW TAB PO ONE ×2 (20:30)
[2021-05-25 21:02] VITALS: BP 177/76
[2021-05-25] MEDS: METHYLPREDNISOLONE SOD SUCC 125 MG/2ML VIAL IV SCH (21:41)
[2021-05-25] MEDS: MONTELUKAST SODIUM 10 MG TAB PO SCH (21:41)
[2021-05-25] MEDS ORDERED: METHYLPREDNISOLONE SOD SUCC 125 MG/2ML VIAL IV SCH (22:00)
[2021-05-25] MEDS ORDERED: HYDRALAZINE HCL 20 MG/ML VIAL IV PRN (23:00)
[2021-05-26] VITALS (8 sets, daily range): BP systolic 146–165; BP diastolic 71–90
[2021-05-26] MEDS: ALBUTEROL/IPRATROPIUM 3 ML NEB NEB SCH ×6 (02:05→22:05)
[2021-05-26] MEDS: TRAMADOL HCL 50 MG TAB PO PRN ×2 (04:46→22:38)
[2021-05-26 05:05] LABS: BASOPHILS % 0.1 % (0.0-1.0); HEMATOCRIT 37.9 % (34.2-44.1); HEMOGLOBIN 11.6 g/dL (12.0-16.0); LYMPHOCYTES # (AUTO) 0.5 (1.0-3.2); LYMPHOCYTES % 7.2 % (18.0-39.1); MEAN CORPUSCULAR HEMOGLOBIN 30.2 pg (28-32); MEAN CORPUSCULAR HGB CONC 30.6 g/dL (31-35); MEAN CORPUSCULAR VOLUME 98.7 fL (81-99); MONOCYTES # (AUTO) 0.2 (0.2-0.8); MONOCYTES % 3.4 % (4.4-11.3); NEUTROPHILS % 87.4 % (38.7-80.0); PLATELET COUNT 156 x10e3/uL (140-360); RED BLOOD COUNT 3.84 x10e6/uL (3.6-5.1); RED CELL DISTRIBUTION WIDTH 14.3 % (11.7-14.4)
[2021-05-26 05:19] LABS: ANION GAP 17.1 mmol/L (8-16); CALCIUM 8.3 mg/dL (8.4-10.2); CREATININE, SERUM 1.11 mg/dL (0.57-1.11); POTASSIUM 4.1 mmol/L (3.5-5.1)
[2021-05-26] MEDS: LEVOTHYROXINE SODIUM 75 MCG TAB PO SCH (05:25)
[2021-05-26] MEDS: METOPROLOL TARTRATE 50 MG TAB PO SCH (07:52)
[2021-05-26] MEDS: ASPIRIN 81 MG CHEW TAB PO SCH (07:52)
[2021-05-26] MEDS: METHYLPREDNISOLONE SOD SUCC 125 MG/2ML VIAL IV SCH (07:52)
[2021-05-26] MEDS: INSULIN REGULAR, HUMAN 100 UNIT/1 ML SQ SCH ×4 (07:53→22:09)
[2021-05-26] MEDS: VENLAFAXINE HCL 75 MG TAB PO SCH (08:00)
[2021-05-26] MEDS: FLUTICASONE PROPIONATE NASAL SPRAY NS SCH ×2 (09:00→16:44)
[2021-05-26] MEDS ORDERED: NIFEDIPINE CR 30 MG TAB PO SCH (09:00)
[2021-05-26] MEDS ORDERED: CALCIUM CARBONATE 500 MG CHEWABLE TABS PO PRN (10:15)
[2021-05-26] MEDS ORDERED: ONDANSETRON HCL 4 MG ORAL DISINTEGRATING TAB PO PRN (11:00)
[2021-05-26] MEDS: PANTOPRAZOLE SOD 40 MG TABEC PO SCH (11:05)
[2021-05-26] MEDS ORDERED: NIFEDIPINE CR 30 MG TAB PO ONE (11:15)
[2021-05-26] MEDS ORDERED: CITRATE OF MAGNESIA 300ML BOTTLE PO ONE (11:15)
[2021-05-26] MEDS ORDERED: HYDROCODONE/APAP 5MG-325MG TAB PO ONE (11:15)
[2021-05-26 14:18] LABS: CREATINE KINASE MB 1.5 ng/mL (0-5.0)
[2021-05-26] MEDS: CEFTRIAXONE 1 GM in SODIUM CHLORIDE 0.9% 50ML 50 ML IV SCH (16:00)
[2021-05-26] MEDS ORDERED: SODIUM CHLORIDE 0.9% 250ML 250 ML ONE (16:08)
[2021-05-26] MEDS ORDERED: ENOXAPARIN SOD INJ 40 MG/0.4 ML SYR SC SCH (17:45)
[2021-05-26] MEDS ORDERED: PREDNISONE 10 MG TAB PO ONE (20:00)
[2021-05-26] MEDS ORDERED: METOPROLOL TARTRATE 50 MG TAB PO ONE (21:00)
[2021-05-26] MEDS: MONTELUKAST SODIUM 10 MG TAB PO SCH (21:34)
[2021-05-27] VITALS: BP 146/79
[2021-05-27] MEDS ORDERED: PREDNISONE 10 MG TAB PO ONE ×2 (02:00→03:00)
[2021-05-27] MEDS: ALBUTEROL/IPRATROPIUM 3 ML NEB NEB SCH ×6 (03:10→23:00)
[2021-05-27 04:00] VITALS: BP 121/48
[2021-05-27] MEDS: LEVOTHYROXINE SODIUM 75 MCG TAB PO SCH (05:37)
[2021-05-27] MEDS ORDERED: SODIUM CHLORIDE 0.9% 50ML 50 ML ONE (06:34)
[2021-05-27] MEDS ORDERED: IOPAMIDOL 370 MG/ML 200 ML INFUS..BTL INJ ONE (06:34)
[2021-05-27] MEDS: INSULIN REGULAR, HUMAN 100 UNIT/1 ML SQ SCH ×4 (07:30→21:00)
[2021-05-27] MEDS: PANTOPRAZOLE SOD 40 MG TABEC PO SCH (07:30)
[2021-05-27 08:00] VITALS: BP 99/69
[2021-05-27] MEDS ORDERED: DIPHENHYDRAMINE HCL 25 MG CAP PO ONE (08:00)
[2021-05-27] MEDS ORDERED: METOPROLOL SUCCINATE 50 MG TAB XL PO SCH (09:00)
[2021-05-27] MEDS: FLUTICASONE PROPIONATE NASAL SPRAY NS SCH ×2 (09:00→16:37)
[2021-05-27] MEDS: VENLAFAXINE HCL 75 MG TAB PO SCH (09:00)
[2021-05-27] MEDS: ASPIRIN 81 MG CHEW TAB PO SCH (09:00)
[2021-05-27] MEDS: CEFTRIAXONE 1 GM in SODIUM CHLORIDE 0.9% 50ML 50 ML IV SCH (09:00)
[2021-05-27] MEDS ORDERED: NIFEDIPINE CR 30 MG TAB PO SCH (09:00)
[2021-05-27] MEDS: PREDNISONE 10 MG TAB PO ONE ×2 (09:29→10:50)
[2021-05-27] MEDS ORDERED: PREDNISONE 20 MG TAB PO ONE (09:30)
[2021-05-27] MEDS: METHYLPREDNISOLONE SOD SUCC 125 MG/2ML VIAL IV SCH ×2 (09:45→21:00)
[2021-05-27] MEDS ORDERED: ALBUTEROL/IPRATROPIUM 3 ML NEB NEB ONE ×2 (10:00)
[2021-05-27] MEDS ORDERED: FUROSEMIDE INJ 10 MG/ML 2 ML VIAL IV ONE (10:30)
[2021-05-27] MEDS: ENOXAPARIN SOD INJ 40 MG/0.4 ML SYR SC SCH ×2 (10:45→21:00)
[2021-05-27] MEDS: TRAMADOL HCL 50 MG TAB PO PRN (11:08)
[2021-05-27 12:00] VITALS: BP 163/78
[2021-05-27 16:00] VITALS: BP 161/79
[2021-05-27 20:00] VITALS: BP 146/63
[2021-05-27] MEDS: MONTELUKAST SODIUM 10 MG TAB PO SCH (21:00)
[2021-05-27] MEDS ORDERED: METHYLPREDNISOLONE SOD SUCC 125 MG/2ML VIAL IV SCH (21:00)
[2021-05-28] VITALS (8 sets, daily range): BP systolic 131–156; BP diastolic 65–83
[2021-05-28] MEDS: TRAMADOL HCL 50 MG TAB PO PRN ×2 (02:30→15:05)
[2021-05-28] MEDS: Pantoprazole IV 40 MG in SODIUM CHLORIDE 0.9% 50ML 50 ML IV SCH ×5 (02:45→22:45)
[2021-05-28 03:18] LABS: % IRON SATURATION 9 % (15-50); IRON 38 ug/dL (50-170); TOTAL IRON BINDING CAPACITY 402 ug/dL (261-478); TRANSFERRIN 287 mg/dL (180-382)
[2021-05-28] MEDS: ALBUTEROL/IPRATROPIUM 3 ML NEB NEB SCH ×5 (03:30→18:35)
[2021-05-28 05:47] LABS: BASOPHILS % 0.2 % (0.0-1.0); EOSINOPHILS % 0.1 % (0.0-6.0); HEMATOCRIT 37.8 % (34.2-44.1); HEMOGLOBIN 11.7 g/dL (12.0-16.0); LYMPHOCYTES # (AUTO) 0.5 (1.0-3.2); LYMPHOCYTES % 3.9 % (18.0-39.1); MEAN CORPUSCULAR HEMOGLOBIN 30.5 pg (28-32); MEAN CORPUSCULAR VOLUME 98.4 fL (81-99); MONOCYTES # (AUTO) 0.6 (0.2-0.8); MONOCYTES % 5.4 % (4.4-11.3); NEUTROPHILS # (AUTO) 10.5 (2.1-6.9); NEUTROPHILS % 88.7 % (38.7-80.0); PLATELET COUNT 199 x10e3/uL (140-360); RED BLOOD COUNT 3.84 x10e6/uL (3.6-5.1); RED CELL DISTRIBUTION WIDTH 14.1 % (11.7-14.4)
[2021-05-28] MEDS: LEVOTHYROXINE SODIUM 75 MCG TAB PO SCH (06:00)
[2021-05-28 06:19] LABS: ALBUMIN 3.8 g/dL (3.5-5.0); ALBUMIN/GLOBULIN RATIO 1.4 (0.8-2.0); ANION GAP 17.1 mmol/L (8-16); CALCIUM 8.1 mg/dL (8.4-10.2); CREATININE, SERUM 1.46 mg/dL (0.57-1.11); POTASSIUM 5.1 mmol/L (3.5-5.1)
[2021-05-28] MEDS: INSULIN REGULAR, HUMAN 100 UNIT/1 ML SQ SCH ×4 (08:00→21:00)
[2021-05-28] MEDS: VENLAFAXINE HCL 75 MG TAB PO SCH (08:15)
[2021-05-28] MEDS: CEFTRIAXONE 1 GM in SODIUM CHLORIDE 0.9% 50ML 50 ML IV SCH (08:15)
[2021-05-28] MEDS: METHYLPREDNISOLONE SOD SUCC 125 MG/2ML VIAL IV SCH (08:15)
[2021-05-28] MEDS: FLUTICASONE PROPIONATE NASAL SPRAY NS SCH ×2 (08:15→17:32)
[2021-05-28] MEDS: ASPIRIN 81 MG CHEW TAB PO SCH (08:15)
[2021-05-28] MEDS: NIFEDIPINE CR 30 MG TAB PO SCH (08:15)
[2021-05-28] MEDS: METOPROLOL SUCCINATE 50 MG TAB XL PO SCH (08:16)
[2021-05-28] MEDS: ENOXAPARIN SOD INJ 40 MG/0.4 ML SYR SC SCH (08:17)
[2021-05-28] MEDS ORDERED: SODIUM CHLORIDE 0.9% 1000ML 1,000 ML ONE (12:04)
[2021-05-28] MEDS ORDERED: SODIUM CHLORIDE 0.9% 500ML 500 ML IV ONE (12:15)
[2021-05-28] MEDS: ACETYLCYSTEINE 200 MG/ML 4ML VIAL INH SCH ×2 (15:25→18:35)
[2021-05-28] MEDS: MONTELUKAST SODIUM 10 MG TAB PO SCH (21:00)
[2021-05-28] MEDS: METHYLPREDNISOLONE SOD SUCC 40 MG/ML VIAL 1ML IV SCH (21:00)
[2021-05-28] MEDS: ENOXAPARIN 30 MG/0.3 ML SYR SC SCH (21:30)
[2021-05-29] VITALS (7 sets, daily range): BP systolic 132–168; BP diastolic 66–103
[2021-05-29] MEDS ORDERED: MAGNESIUM HYDROXIDE 30 ML UDC PO STA ×2 (00:32→22:18)
[2021-05-29] MEDS: ALBUTEROL/IPRATROPIUM 3 ML NEB NEB SCH ×6 (02:15→22:37)
[2021-05-29] MEDS: Pantoprazole IV 40 MG in SODIUM CHLORIDE 0.9% 50ML 50 ML IV SCH ×5 (03:45→23:45)
[2021-05-29] MEDS: LEVOTHYROXINE SODIUM 75 MCG TAB PO SCH (06:00)
[2021-05-29 06:29] LABS: BASOPHILS % 0.2 % (0.0-1.0); HEMATOCRIT 36.2 % (34.2-44.1); HEMOGLOBIN 11.4 g/dL (12.0-16.0); LYMPHOCYTES # (AUTO) 0.6 (1.0-3.2); LYMPHOCYTES % 5.7 % (18.0-39.1); MEAN CORPUSCULAR HEMOGLOBIN 30.2 pg (28-32); MEAN CORPUSCULAR HGB CONC 31.5 g/dL (31-35); MONOCYTES # (AUTO) 0.9 (0.2-0.8); MONOCYTES % 8.3 % (4.4-11.3); NEUTROPHILS % 82.9 % (38.7-80.0); PLATELET COUNT 187 x10e3/uL (140-360); RED BLOOD COUNT 3.77 x10e6/uL (3.6-5.1)
[2021-05-29] MEDS: ACETYLCYSTEINE 200 MG/ML 4ML VIAL INH SCH ×2 (06:40→18:30)
[2021-05-29 06:53] LABS: ALBUMIN 3.7 g/dL (3.5-5.0); ALBUMIN/GLOBULIN RATIO 1.3 (0.8-2.0); ANION GAP 15.9 mmol/L (8-16); CALCIUM 8.2 mg/dL (8.4-10.2); CREATININE, SERUM 1.38 mg/dL (0.57-1.11); POTASSIUM 4.9 mmol/L (3.5-5.1)
[2021-05-29] MEDS: INSULIN REGULAR, HUMAN 100 UNIT/1 ML SQ SCH ×4 (07:30→21:00)
[2021-05-29] MEDS: METHYLPREDNISOLONE SOD SUCC 40 MG/ML VIAL 1ML IV SCH ×2 (08:41→21:00)
[2021-05-29] MEDS: CEFTRIAXONE 1 GM in SODIUM CHLORIDE 0.9% 50ML 50 ML IV SCH (08:41)
[2021-05-29] MEDS: FLUTICASONE PROPIONATE NASAL SPRAY NS SCH ×2 (08:41→17:10)
[2021-05-29] MEDS: VENLAFAXINE HCL 75 MG TAB PO SCH (08:41)
[2021-05-29] MEDS: ASPIRIN 81 MG CHEW TAB PO SCH (08:41)
[2021-05-29] MEDS: NIFEDIPINE CR 30 MG TAB PO SCH (08:42)
[2021-05-29] MEDS: ENOXAPARIN 30 MG/0.3 ML SYR SC SCH ×2 (08:42→21:00)
[2021-05-29] MEDS: METOPROLOL SUCCINATE 50 MG TAB XL PO SCH (08:42)
[2021-05-29] MEDS: TRAMADOL HCL 50 MG TAB PO PRN (09:43)
[2021-05-29] MEDS ORDERED: GUAIFENESIN 600 MG TAB PO PRN (17:15)
[2021-05-29] MEDS: MONTELUKAST SODIUM 10 MG TAB PO SCH (21:00)
[2021-05-30] VITALS (20 sets, daily range): BP systolic 100–175; BP diastolic 49–91
[2021-05-30] MEDS ORDERED: LORAZEPAM INJ 2 MG/ML VIAL IV ONE (01:30)
[2021-05-30] MEDS ORDERED: LORAZEPAM INJ 2 MG/ML VIAL ONE (01:39)
[2021-05-30] MEDS: ALBUTEROL/IPRATROPIUM 3 ML NEB NEB SCH ×6 (02:20→23:00)
[2021-05-30] MEDS: Pantoprazole IV 40 MG in SODIUM CHLORIDE 0.9% 50ML 50 ML IV SCH (04:45)
[2021-05-30] MEDS ORDERED: SOD PHOSPHATE/SOD BIPHOSPHATE ENEMA 132 ML BTL PR PRN (05:45)
[2021-05-30] MEDS ORDERED: SOD PHOSPHATE/SOD BIPHOSPHATE ENEMA 132 ML BTL PR ONE (05:45)
[2021-05-30] MEDS: LEVOTHYROXINE SODIUM 75 MCG TAB PO SCH (06:00)
[2021-05-30 06:32] LABS: BASOPHILS % 0.4 % (0.0-1.0); HEMATOCRIT 35.6 % (34.2-44.1); HEMOGLOBIN 10.9 g/dL (12.0-16.0); LYMPHOCYTES # (AUTO) 0.7 (1.0-3.2); MEAN CORPUSCULAR HGB CONC 30.6 g/dL (31-35); MEAN CORPUSCULAR VOLUME 98.1 fL (81-99); MONOCYTES # (AUTO) 0.9 (0.2-0.8); MONOCYTES % 8.6 % (4.4-11.3); NEUTROPHILS % 81.6 % (38.7-80.0); PLATELET COUNT 168 x10e3/uL (140-360); RED BLOOD COUNT 3.63 x10e6/uL (3.6-5.1); RED CELL DISTRIBUTION WIDTH 13.7 % (11.7-14.4)
[2021-05-30] MEDS ORDERED: FAMOTIDINE 20 MG/2 ML VIAL IV STA ×2 (06:48→06:59)
[2021-05-30 06:52] LABS: ANION GAP 14.2 mmol/L (8-16); CREATININE, SERUM 1.18 mg/dL (0.57-1.11); POTASSIUM 5.2 mmol/L (3.5-5.1)
[2021-05-30] MEDS ORDERED: DIPHENHYDRAMINE HCL INJ 50 MG/ML VIAL ONE (06:57)
[2021-05-30] MEDS ORDERED: DIPHENHYDRAMINE HCL INJ 50 MG/ML VIAL IV ONE ×2 (07:00)
[2021-05-30] MEDS ORDERED: METHYLPREDNISOLONE SOD SUCC 125 MG/2ML VIAL IV ONE ×2 (07:00)
[2021-05-30] MEDS: ACETYLCYSTEINE 200 MG/ML 4ML VIAL INH SCH (07:00)
[2021-05-30 08:58] LABS: ABG HCO3 34 mmol/L (22-26); ABG PCO2 77 mmHg (35-45); ABG PH 7.26 (7.35-7.45); ABG PO2 101 mmHg (80-105); ABG TCO2 37
[2021-05-30] MEDS: HYDRALAZINE HCL 20 MG/ML VIAL IV PRN ×2 (08:59→15:13)
[2021-05-30] MEDS: FLUTICASONE PROPIONATE NASAL SPRAY NS SCH ×2 (09:00→16:58)
[2021-05-30] MEDS: METOPROLOL SUCCINATE 50 MG TAB XL PO SCH (09:00)
[2021-05-30] MEDS: ASPIRIN 81 MG CHEW TAB PO SCH (09:00)
[2021-05-30] MEDS ORDERED: MEROPENEM 1 GM in SODIUM CHLORIDE 0.9% 100 ML IV SCH (09:00)
[2021-05-30] MEDS: ENOXAPARIN 30 MG/0.3 ML SYR SC SCH ×2 (09:00→21:13)
[2021-05-30] MEDS: METHYLPREDNISOLONE SOD SUCC 40 MG/ML VIAL 1ML IV SCH ×2 (09:00→21:13)
[2021-05-30] MEDS: NIFEDIPINE CR 30 MG TAB PO SCH (09:00)
[2021-05-30] MEDS: VENLAFAXINE HCL 75 MG TAB PO SCH (09:00)
[2021-05-30] MEDS: INSULIN REGULAR, HUMAN 100 UNIT/1 ML SQ SCH ×4 (09:21→21:00)
[2021-05-30] MEDS: MONTELUKAST SODIUM 10 MG TAB PO SCH (21:00)
[2021-05-30] MEDS ORDERED: ENOXAPARIN SOD INJ 40 MG/0.4 ML SYR SC ONE (21:20)
[2021-05-31] VITALS (26 sets, daily range): BP systolic 117–174; BP diastolic 48–92
[2021-05-31] MEDS: ALBUTEROL/IPRATROPIUM 3 ML NEB NEB SCH ×5 (03:25→19:20)
[2021-05-31 05:55] LABS: BASOPHILS % 0.2 % (0.0-1.0); HEMATOCRIT 34.1 % (34.2-44.1); HEMOGLOBIN 10.6 g/dL (12.0-16.0); LYMPHOCYTES # (AUTO) 0.7 (1.0-3.2); LYMPHOCYTES % 7.7 % (18.0-39.1); MEAN CORPUSCULAR HEMOGLOBIN 30.2 pg (28-32); MEAN CORPUSCULAR HGB CONC 31.1 g/dL (31-35); MEAN CORPUSCULAR VOLUME 97.2 fL (81-99); MONOCYTES # (AUTO) 0.8 (0.2-0.8); MONOCYTES % 8.7 % (4.4-11.3); NEUTROPHILS # (AUTO) 7.1 (2.1-6.9); PLATELET COUNT 151 x10e3/uL (140-360); RED BLOOD COUNT 3.51 x10e6/uL (3.6-5.1); RED CELL DISTRIBUTION WIDTH 14.2 % (11.7-14.4)
[2021-05-31] MEDS: LEVOTHYROXINE SODIUM 75 MCG TAB PO SCH (06:27)
[2021-05-31 06:32] LABS: ALBUMIN 3.5 g/dL (3.5-5.0); ALBUMIN/GLOBULIN RATIO 1.4 (0.8-2.0); ANION GAP 13.7 mmol/L (8-16); CALCIUM 7.5 mg/dL (8.4-10.2); CREATININE, SERUM 0.95 mg/dL (0.57-1.11); POTASSIUM 4.7 mmol/L (3.5-5.1)
[2021-05-31] MEDS: INSULIN REGULAR, HUMAN 100 UNIT/1 ML SQ SCH ×4 (07:30→21:14)
[2021-05-31] MEDS: METHYLPREDNISOLONE SOD SUCC 40 MG/ML VIAL 1ML IV SCH ×2 (08:49→21:15)
[2021-05-31] MEDS: NIFEDIPINE CR 30 MG TAB PO SCH (08:55)
[2021-05-31] MEDS: VENLAFAXINE HCL 75 MG TAB PO SCH (08:55)
[2021-05-31] MEDS: ASPIRIN 81 MG CHEW TAB PO SCH (08:55)
[2021-05-31] MEDS: METOPROLOL SUCCINATE 50 MG TAB XL PO SCH (08:56)
[2021-05-31] MEDS: FLUTICASONE PROPIONATE NASAL SPRAY NS SCH ×2 (09:00→17:12)
[2021-05-31] MEDS: ENOXAPARIN 30 MG/0.3 ML SYR SC SCH (10:39)
[2021-05-31] MEDS: FLUCONAZOLE 200 MG/100 ML 100 ML IV SCH (12:38)
[2021-05-31] MEDS ORDERED: MAGNESIUM/ALUMINUM/SIMETHICONE 30 ML UDC PO ONE (16:30)
[2021-05-31] MEDS: MAGNESIUM HYDROXIDE 30 ML UDC PO ONE ×2 (16:56→17:09)
[2021-05-31] MEDS: HYDRALAZINE HCL 20 MG/ML VIAL IV PRN (17:20)
[2021-05-31] MEDS: MONTELUKAST SODIUM 10 MG TAB PO SCH (21:15)
[2021-05-31] MEDS: ENOXAPARIN SOD INJ 40 MG/0.4 ML SYR SC SCH (21:15)
[2021-06-01] VITALS (17 sets, daily range): BP systolic 115–167; BP diastolic 47–103
[2021-06-01] MEDS: ALBUTEROL/IPRATROPIUM 3 ML NEB NEB SCH ×7 (00:01→23:10)
[2021-06-01] MEDS ORDERED: BISACODYL 5 MG TAB EC PO ONE ×3 (03:00→04:20)
[2021-06-01] MEDS: LEVOTHYROXINE SODIUM 75 MCG TAB PO SCH (05:30)
[2021-06-01] MEDS: INSULIN REGULAR, HUMAN 100 UNIT/1 ML SQ SCH ×4 (08:19→21:00)
[2021-06-01] MEDS: VENLAFAXINE HCL 75 MG TAB PO SCH (08:23)
[2021-06-01] MEDS: METHYLPREDNISOLONE SOD SUCC 40 MG/ML VIAL 1ML IV SCH ×2 (08:23→21:00)
[2021-06-01] MEDS: ASPIRIN 81 MG CHEW TAB PO SCH (08:23)
[2021-06-01] MEDS: NIFEDIPINE CR 30 MG TAB PO SCH (08:24)
[2021-06-01] MEDS: METOPROLOL SUCCINATE 50 MG TAB XL PO SCH (08:24)
[2021-06-01] MEDS: ENOXAPARIN SOD INJ 40 MG/0.4 ML SYR SC SCH ×2 (08:24→21:00)
[2021-06-01] MEDS: FLUTICASONE PROPIONATE NASAL SPRAY NS SCH ×2 (08:46→16:42)
[2021-06-01] MEDS: IRON SUCROSE 100 MG in SODIUM CHLORIDE 0.9% 100 ML 100 ML IV SCH (09:54)
[2021-06-01] MEDS: HYDRALAZINE HCL 20 MG/ML VIAL IV PRN (09:56)
[2021-06-01] MEDS: FLUCONAZOLE 200 MG/100 ML 100 ML IV SCH (12:30)
[2021-06-01] MEDS ORDERED: SODIUM CHLORIDE 0.9% 250ML 250 ML ONE (12:41)
[2021-06-01] MEDS: DOCUSATE SODIUM 100 MG CAP PO SCH (16:42)
[2021-06-01 19:12] LABS: CLARITY,URINE CLOUDY (CLEAR); COLOR,URINE RED (YELLOW); KETONES,URINE TRACE (NEGATIVE); LEUKOCYTE ESTERASE ,URINE NEGATIVE (NEGATIVE); NITRITE,URINE NEGATIVE (NEGATIVE); PROTEIN,URINE DIPSTICK 1+ (NEGATIVE); URINE UROBILINOGEN 0.2 mg/dL (0.2 - 1)
[2021-06-01 19:23] LABS: BACTERIA,URINE FEW /HPF; RBC,URINE >50 /HPF (0-5)
[2021-06-01] MEDS: MONTELUKAST SODIUM 10 MG TAB PO SCH (21:00)
[2021-06-02] VITALS (7 sets, daily range): BP systolic 120–146; BP diastolic 49–67
[2021-06-02] MEDS ORDERED: BISACODYL 5 MG TAB EC PO ONE ×2 (01:45→02:15)
[2021-06-02] MEDS: ALBUTEROL/IPRATROPIUM 3 ML NEB NEB SCH ×4 (02:49→15:00)
[2021-06-02] MEDS: LEVOTHYROXINE SODIUM 75 MCG TAB PO SCH (06:00)
[2021-06-02 06:14] LABS: BASOPHILS % 0.3 % (0.0-1.0); HEMATOCRIT 33.5 % (34.2-44.1); HEMOGLOBIN 10.9 g/dL (12.0-16.0); LYMPHOCYTES # (AUTO) 0.4 (1.0-3.2); LYMPHOCYTES % 6.4 % (18.0-39.1); MEAN CORPUSCULAR HEMOGLOBIN 30.4 pg (28-32); MEAN CORPUSCULAR HGB CONC 32.5 g/dL (31-35); MEAN CORPUSCULAR VOLUME 93.6 fL (81-99); MONOCYTES # (AUTO) 0.5 (0.2-0.8); MONOCYTES % 7.4 % (4.4-11.3); NEUTROPHILS # (AUTO) 5.5 (2.1-6.9); NEUTROPHILS % 81.6 % (38.7-80.0); PLATELET COUNT 142 x10e3/uL (140-360); RED BLOOD COUNT 3.58 x10e6/uL (3.6-5.1); RED CELL DISTRIBUTION WIDTH 14.1 % (11.7-14.4)
[2021-06-02 06:44] LABS: ALBUMIN 3.2 g/dL (3.5-5.0); ALBUMIN/GLOBULIN RATIO 1.1 (0.8-2.0); ANION GAP 12.7 mmol/L (8-16); CALCIUM 8.3 mg/dL (8.4-10.2); CREATININE, SERUM 0.92 mg/dL (0.57-1.11); POTASSIUM 4.7 mmol/L (3.5-5.1)
[2021-06-02] MEDS: INSULIN REGULAR, HUMAN 100 UNIT/1 ML SQ SCH ×2 (07:30→11:30)
[2021-06-02] MEDS: METHYLPREDNISOLONE SOD SUCC 40 MG/ML VIAL 1ML IV SCH (08:18)
[2021-06-02] MEDS: METOPROLOL SUCCINATE 50 MG TAB XL PO SCH (08:19)
[2021-06-02] MEDS: NIFEDIPINE CR 30 MG TAB PO SCH (08:19)
[2021-06-02] MEDS: DOCUSATE SODIUM 100 MG CAP PO SCH (08:19)
[2021-06-02] MEDS: VENLAFAXINE HCL 75 MG TAB PO SCH (08:19)
[2021-06-02] MEDS: ENOXAPARIN SOD INJ 40 MG/0.4 ML SYR SC SCH (08:20)
[2021-06-02] MEDS: ASPIRIN 81 MG CHEW TAB PO SCH (08:20)
[2021-06-02] MEDS: FLUTICASONE PROPIONATE NASAL SPRAY NS SCH (08:21)
[2021-06-02] MEDS: IRON SUCROSE 100 MG in SODIUM CHLORIDE 0.9% 100 ML 100 ML IV SCH (11:00)
[2021-06-02] MEDS: FLUCONAZOLE 200 MG/100 ML 100 ML IV SCH (12:55)
[2021-06-02] MEDS ORDERED: SYMBICORT 16010.2 GM INH (14:20)
[2021-06-02] MEDS ORDERED: JARDIANCE10 MG PO (14:20)
[2021-06-02] MEDS ORDERED: AMLODIPINE BESYL5 MG PO (14:20)
[2021-06-02] MEDS ORDERED: ATORVASTATIN CA20 MG PO (14:20)
[2021-06-02] MEDS ORDERED: MUCINEX600 MG PO (16:26)
[2021-06-02] MEDS ORDERED: PREDNISONE10 MG PO (16:26)
[2021-06-02] MEDS ORDERED: NIFEDIPINE ER30 M1 PO (16:26)
[2021-06-03] MEDS ORDERED: PANTOPRAZOLE SOD 40 MG TABEC PO SCH (07:30)
== END 2021-06-02 18:30 | disposition home or self-care (01) | DRG 190 ==
LOC: FSED 13:57 → ERHOLD 14:43 → ICU 15:31 → MED/SURG2 19:50 → ICU 05-30 07:36 → MED/SURG2 06-01 11:25
PROVIDERS: ADMIT Internal Medicine; ATTEND Internal Medicine
PROC: 02HV33Z Insertion of Infusion Device into Superior Vena Cava, Percutaneous Approach (ICD-10-PCS; principal; 2021-05-30)
DX: J44.1 Chronic obstructive pulmonary disease with (acute) exacerbation (principal); J96.22 Acute and chronic respiratory failure with hypercapnia; Z68.41 Body mass index [BMI] 40.0-44.9, adult; N17.9 Acute kidney failure, unspecified; J45.901 Unspecified asthma with (acute) exacerbation; G93.40 Encephalopathy, unspecified; E87.1 Hypo-osmolality and hyponatremia; E11.9 Type 2 diabetes mellitus without complications; I10 Essential (primary) hypertension; E03.9 Hypothyroidism, unspecified; E66.01 Morbid (severe) obesity due to excess calories; G47.33 Obstructive sleep apnea (adult) (pediatric); K57.90 Diverticulosis of intestine, part unspecified, without perforation or abscess without bleeding; K21.9 Gastro-esophageal reflux disease without esophagitis; Z90.49 Acquired absence of other specified parts of digestive tract; Z90.79 Acquired absence of other genital organ(s); T78.3XXA Angioneurotic edema, initial encounter; K59.00 Constipation, unspecified; M47.892 Other spondylosis, cervical region; R91.1 Solitary pulmonary nodule; R07.89 Other chest pain
CPT/HCPCS: 36415; 36569; 36600; 71045; 71260; 74018; 74176; 76700; 80048; 80053; 81001; 82550; 82553; 82607; 82746; 82805; 82948; 83540; 83690; 83880; 84466; 84484; 85025; 85045; 87040; 93005; 93306; 94640; 94664; 94760; 94799; 96372; 97139; 99251; 99284; J0360; J0456; J0696; J1200; J1450; J1650; J1756; J1817; J1940; J2060; J2920; J2930; J7030; J7050; J7512; Q9967; U0002

== ENCOUNTER 2021-08-04 19:23 | Emergency (ER) | payer MEDICARE ==
[~2021-08-04] VITALS: Ht 165.1 cm; Wt 104.3 kg
[~2021-08-04 19:23] MED LIST changes: +AMLODIPINE BESYL5 MG PO; +ATORVASTATIN CA20 MG PO; +JARDIANCE10 MG PO; +MUCINEX600 MG PO; +NIFEDIPINE ER30 M1 PO; +PREDNISONE10 MG PO; +SYMBICORT 16010.2 GM INH
== END 2021-08-04 20:46 | disposition home or self-care (01) ==
LOC: FSED 19:28
DX: H92.01 Otalgia, right ear (principal); H69.91 Unspecified Eustachian tube disorder, right ear; I10 Essential (primary) hypertension; E11.9 Type 2 diabetes mellitus without complications; E78.5 Hyperlipidemia, unspecified; J44.9 Chronic obstructive pulmonary disease, unspecified; I25.10 Atherosclerotic heart disease of native coronary artery without angina pectoris; K21.9 Gastro-esophageal reflux disease without esophagitis
CPT/HCPCS: 99283

== ENCOUNTER 2021-09-05 10:17 | Emergency (ER) | payer MEDICARE ==
[~2021-09-05] VITALS: Ht 165.1 cm; Wt 108.9 kg
[2021-09-05] MEDS ORDERED: Morphine 4mg Syringe 4 MG/ML INJ IV STA (10:42)
[2021-09-05] MEDS ORDERED: SODIUM CHLORIDE 0.9% 1000ML 1,000 ML IV STA (10:42)
[2021-09-05] MEDS ORDERED: ONDANSETRON HCL INJ 2MG/ML 2ML 2 MG/ML VIAL IV ONE (10:45)
[2021-09-05] MEDS ORDERED: FAMOTIDINE 20 MG/2 ML VIAL IV ONE ×2 (10:45→11:27)
[2021-09-05] MEDS ORDERED: SODIUM CHLORIDE 0.9% 1000ML 1,000 ML ONE (11:26)
[2021-09-05] MEDS ORDERED: Morphine 4mg Syringe 4 MG/ML INJ ONE (11:26)
[2021-09-05] MEDS ORDERED: ONDANSETRON HCL INJ 2MG/ML 2ML 2 MG/ML VIAL ONE (11:26)
[2021-09-05] MEDS ORDERED: ONDANSETRON ODT4 MG PO (12:40)
[2021-09-05] MEDS ORDERED: FAMOTIDINE20 MG PO (12:40)
[2021-09-05] MEDS ORDERED: ULTRAM 50MG50 MG PO (12:40)
== END 2021-09-05 12:50 | disposition home or self-care (01) ==
LOC: FSED 10:45
DX: R11.2 Nausea with vomiting, unspecified (principal); K52.9 Noninfective gastroenteritis and colitis, unspecified; K29.70 Gastritis, unspecified, without bleeding; I10 Essential (primary) hypertension; E11.9 Type 2 diabetes mellitus without complications; J44.9 Chronic obstructive pulmonary disease, unspecified; E03.9 Hypothyroidism, unspecified; E78.5 Hyperlipidemia, unspecified; I25.10 Atherosclerotic heart disease of native coronary artery without angina pectoris
CPT/HCPCS: 74176; 80048; 80076; 81003; 82553; 84484; 85025; 96374; 96375; 99284; J2270; J2405; J7030

== ENCOUNTER 2022-02-06 13:12 | Emergency (ER) | payer MEDICARE ==
[~2022-02-06] VITALS: Ht 165.1 cm; Wt 108.9 kg
[~2022-02-06 13:12] MED LIST changes: +FAMOTIDINE20 MG PO; +ONDANSETRON ODT4 MG PO; +ULTRAM 50MG50 MG PO
== END 2022-02-06 14:30 | disposition home or self-care (01) ==
LOC: ER 13:29
DX: K14.9 Disease of tongue, unspecified (principal); I10 Essential (primary) hypertension; E11.9 Type 2 diabetes mellitus without complications; J44.9 Chronic obstructive pulmonary disease, unspecified; E78.5 Hyperlipidemia, unspecified; E03.9 Hypothyroidism, unspecified; K21.9 Gastro-esophageal reflux disease without esophagitis; I25.10 Atherosclerotic heart disease of native coronary artery without angina pectoris
CPT/HCPCS: 99282

== ENCOUNTER 2022-05-19 11:52 | Emergency (ER) | payer MEDICARE, OTHER ==
[~2022-05-19] VITALS: Ht 165.1 cm; Wt 108.9 kg
[2022-05-19] MEDS ORDERED: TRAMADOL HCL 50 MG TAB PO ONE (12:15)
[2022-05-19] MEDS: ACETAMINOPHEN 325 MG TAB PO ONE ×2 (13:42→13:43)
== END 2022-05-19 14:25 | disposition home or self-care (01) ==
LOC: ER 12:04
DX: S00.83XA Contusion of other part of head, initial encounter (principal); S20.223A Contusion of bilateral back wall of thorax, initial encounter; W18.2XXA Fall in (into) shower or empty bathtub, initial encounter; Y93.E1 Activity, personal bathing and showering; Y92.89 Other specified places as the place of occurrence of the external cause; I10 Essential (primary) hypertension; E11.9 Type 2 diabetes mellitus without complications; E78.5 Hyperlipidemia, unspecified; E03.9 Hypothyroidism, unspecified; J44.9 Chronic obstructive pulmonary disease, unspecified; I25.10 Atherosclerotic heart disease of native coronary artery without angina pectoris; K21.9 Gastro-esophageal reflux disease without esophagitis; G89.29 Other chronic pain
CPT/HCPCS: 70450; 72125; 72128; 72131; 99283

== ENCOUNTER 2022-10-21 13:52 | Emergency (ER) | payer MEDICARE ==
[~2022-10-21] VITALS: Ht 165.1 cm; Wt 106.6 kg
[2022-10-21] MEDS ORDERED: METHYLPREDNISOLONE SOD SUCC 125 MG/2ML VIAL IV ONE (14:15)
[2022-10-21 14:23] LABS: BASOPHILS % 0.1 % (0.0-1.0); EOSINOPHILS # (AUTO) 0.1 (0.0-0.4); EOSINOPHILS % 0.7 % (0.0-6.0); HEMATOCRIT 36.8 % (34.2-44.1); HEMOGLOBIN 12.3 g/dL (12.0-16.0); LYMPHOCYTES # (AUTO) 1.1 (1.0-3.2); LYMPHOCYTES % 8.1 % (18.0-39.1); MEAN CORPUSCULAR HEMOGLOBIN 32.5 pg (28-32); MEAN CORPUSCULAR HGB CONC 33.4 g/dL (31-35); MEAN CORPUSCULAR VOLUME 97.4 fL (81-99); MONOCYTES % 7.4 % (4.4-11.3); NEUTROPHILS # (AUTO) 11.4 (2.1-6.9); NEUTROPHILS % 83.1 % (38.7-80.0); PLATELET COUNT 145 x10e3/uL (140-360); RED BLOOD COUNT 3.78 x10e6/uL (3.6-5.1); RED CELL DISTRIBUTION WIDTH 12.7 % (11.7-14.4)
[2022-10-21 14:35] LABS: ALBUMIN 3.5 g/dL (3.5-5.0); ALBUMIN/GLOBULIN RATIO 1.1 (0.8-2.0); ANION GAP 13.5 mmol/L (8-16); CALCIUM 8.6 mg/dL (8.4-10.2); CREATININE, SERUM 0.91 mg/dL (0.57-1.11); POTASSIUM 3.5 mmol/L (3.5-5.1)
[2022-10-21] MEDS ORDERED: ALBUTEROL SULF 0.083% NEB SOLN 3 ML NEB NEB STA (15:38)
[2022-10-21] MEDS ORDERED: ALBUTEROL2.5 MG/0.5 PO (17:00)
[2022-10-21] MEDS ORDERED: ACETAMINOPHEN 325 MG TAB PO ONE (17:00)
[2022-10-21] MEDS ORDERED: DOXYCYCLINE HY100 MG PO (17:00)
[2022-10-21] MEDS ORDERED: BENZONATATE200 MG PO (17:00)
[2022-10-21] MEDS ORDERED: AEROECLIPSE II1 EACH PO (17:00)
== END 2022-10-21 17:45 | disposition home or self-care (01) ==
LOC: ER 13:57
DX: R50.9 Fever, unspecified (principal); J44.1 Chronic obstructive pulmonary disease with (acute) exacerbation; J40 Bronchitis, not specified as acute or chronic; Z20.822 Contact with and (suspected) exposure to COVID-19
CPT/HCPCS: 36415; 71045; 80053; 83880; 84484; 85025; 87040; 93005; 99284; J2930; U0002

== ENCOUNTER 2023-04-25 15:19 | Inpatient (IN) | payer MEDICARE ==
[~2023-04-25] VITALS: Ht 165.1 cm; Wt 110.5 kg
[~2023-04-25 15:19] MED LIST changes: +AEROECLIPSE II1 EACH PO; +ALBUTEROL2.5 MG/0.5 PO; +BENZONATATE100 MG PO; +DOXYCYCLINE HY100 MG PO; +MEDROL4 M2 PO; +VENTOLIN HFA18 GM INH
[2023-04-25] MEDS ORDERED: ALBUTEROL/IPRATROPIUM 3 ML NEB ONE (16:38)
[2023-04-25] MEDS ORDERED: FUROSEMIDE INJ 10 MG/ML 4 ML VIAL ONE (16:38)
[2023-04-25] MEDS ORDERED: ALBUTEROL/IPRATROPIUM 3 ML NEB NEB ONE (16:45)
[2023-04-25] MEDS ORDERED: FUROSEMIDE INJ 10 MG/ML 4 ML VIAL IV ONE (16:45)
[2023-04-25 20:00] VITALS: BP 139/71; PULSE 61; RESP 18; TEMP 98.6; O2SAT 98
[2023-04-25] MEDS ORDERED: ACETAMINOPHEN 325 MG TAB PO PRN (20:15)
[2023-04-25] MEDS ORDERED: CLONIDINE HCL 0.1 MG TAB PO PRN (20:15)
[2023-04-25] MEDS: INSULIN LISPRO 100 UNIT/1 ML 3ML VIAL SQ SCH (21:00)
[2023-04-25] MEDS: NIFEDIPINE CR 30 MG TAB PO SCH (21:02)
[2023-04-25] MEDS: METHYLPREDNISOLONE SOD SUCC 40 MG/ML VIAL 1ML IV SCH (21:03)
[2023-04-25] MEDS: ONDANSETRON HCL INJ 2MG/ML 2ML 2 MG/ML VIAL IV PRN (21:03)
[2023-04-25] MEDS: AZITHROMYCIN 250 MG TAB PO SCH (21:03)
[2023-04-25] MEDS: Morphine 2mg Syringe 2 MG/ML SYR IV PRN (22:22)
[2023-04-25] MEDS: ALBUTEROL/IPRATROPIUM 3 ML NEB NEB SCH (23:00)
[2023-04-26] VITALS (13 sets, daily range): BP systolic 133–176; BP diastolic 54–131; PULSE 61–75; RESP 16–18; TEMP 97.1–98; O2SAT 90–100
[2023-04-26] MEDS: TRAMADOL HCL 50 MG TAB PO PRN ×2 (00:25→09:19)
[2023-04-26] MEDS ORDERED: OMEPRAZOLE40 MG PO (00:59)
[2023-04-26] MEDS ORDERED: LEVOTHYROXINE50 MCG PO (00:59)
[2023-04-26 01:07] LABS: CREATINE KINASE 53 IU/L (29-168)
[2023-04-26] MEDS: ALBUTEROL/IPRATROPIUM 3 ML NEB NEB SCH ×7 (03:00→23:29)
[2023-04-26 05:04] LABS: BASOPHILS % 0.1 % (0.0-1.0); EOSINOPHILS % 0.1 % (0.0-6.0); HEMATOCRIT 36.9 % (34.2-44.1); HEMOGLOBIN 13.2 g/dL (12.0-16.0); LYMPHOCYTES # (AUTO) 0.7 (1.0-3.2); LYMPHOCYTES % 7.4 % (18.0-39.1); MEAN CORPUSCULAR HEMOGLOBIN 34.5 pg (28-32); MEAN CORPUSCULAR HGB CONC 35.8 g/dL (31-35); MEAN CORPUSCULAR VOLUME 96.3 fL (81-99); MONOCYTES # (AUTO) 0.1 (0.2-0.8); MONOCYTES % 1.4 % (4.4-11.3); NEUTROPHILS # (AUTO) 8.5 (2.1-6.9); NEUTROPHILS % 89.9 % (38.7-80.0); PLATELET COUNT 149 x10e3/uL (140-360); RED BLOOD COUNT 3.83 x10e6/uL (3.6-5.1); RED CELL DISTRIBUTION WIDTH 13.8 % (11.7-14.4); WHITE BLOOD COUNT 9.47 x10e3/uL (4.8-10.8)
[2023-04-26 05:27] LABS: ALBUMIN 3.9 g/dL (3.5-5.0); ANION GAP 16.6 mmol/L (8-16); BILIRUBIN,DIRECT 0.2 mg/dL (0.0-0.5); CALCIUM 8.7 mg/dL (8.4-10.2); CREATININE, SERUM 1.26 mg/dL (0.57-1.11); POTASSIUM 4.6 mmol/L (3.5-5.1)
[2023-04-26 05:51] LABS: THYROID STIMULATING HORMONE 6.963 uIU/mL (0.350-4.940)
[2023-04-26] MEDS: INSULIN LISPRO 100 UNIT/1 ML 3ML VIAL SQ SCH ×4 (07:30→20:19)
[2023-04-26 09:01] LABS: CREATINE KINASE 46 IU/L (29-168)
[2023-04-26] MEDS: NIFEDIPINE CR 30 MG TAB PO SCH ×2 (09:03→17:11)
[2023-04-26] MEDS: METHYLPREDNISOLONE SOD SUCC 40 MG/ML VIAL 1ML IV SCH ×2 (09:03→20:17)
[2023-04-26] MEDS: HEPARIN SOD (PORCINE) 5,000 UNIT/ML VIAL SC SCH ×2 (09:04→20:23)
[2023-04-26] MEDS: Morphine 2mg Syringe 2 MG/ML SYR IV PRN ×2 (12:09→21:49)
[2023-04-26] MEDS: ONDANSETRON HCL INJ 2MG/ML 2ML 2 MG/ML VIAL IV PRN ×2 (12:09→21:49)
[2023-04-26] MEDS: FUROSEMIDE 20 MG TAB PO SCH (14:39)
[2023-04-26] MEDS: AZITHROMYCIN 250 MG TAB PO SCH (20:16)
[2023-04-27] VITALS (14 sets, daily range): BP systolic 127–147; BP diastolic 54–79; PULSE 46–85; RESP 16–22; TEMP 97.6–98.5; O2SAT 92–100
[2023-04-27] MEDS: ALBUTEROL/IPRATROPIUM 3 ML NEB NEB SCH ×6 (02:25→23:21)
[2023-04-27 06:18] LABS: BASOPHILS % 0.1 % (0.0-1.0); EOSINOPHILS # (AUTO) 0.1 (0.0-0.4); EOSINOPHILS % 0.5 % (0.0-6.0); HEMATOCRIT 36.9 % (34.2-44.1); HEMOGLOBIN 12.2 g/dL (12.0-16.0); LYMPHOCYTES # (AUTO) 0.5 (1.0-3.2); LYMPHOCYTES % 3.8 % (18.0-39.1); MEAN CORPUSCULAR HEMOGLOBIN 31.6 pg (28-32); MEAN CORPUSCULAR HGB CONC 33.1 g/dL (31-35); MEAN CORPUSCULAR VOLUME 95.6 fL (81-99); MONOCYTES # (AUTO) 0.6 (0.2-0.8); MONOCYTES % 4.2 % (4.4-11.3); NEUTROPHILS # (AUTO) 12.7 (2.1-6.9); NEUTROPHILS % 90.4 % (38.7-80.0); PLATELET COUNT 196 x10e3/uL (140-360); RED BLOOD COUNT 3.86 x10e6/uL (3.6-5.1); RED CELL DISTRIBUTION WIDTH 12.9 % (11.7-14.4); WHITE BLOOD COUNT 13.99 x10e3/uL (4.8-10.8)
[2023-04-27 07:05] LABS: ANION GAP 17.2 mmol/L (8-16); CALCIUM 8.7 mg/dL (8.4-10.2); CREATININE, SERUM 1.39 mg/dL (0.57-1.11); POTASSIUM 4.2 mmol/L (3.5-5.1)
[2023-04-27] MEDS: METHYLPREDNISOLONE SOD SUCC 40 MG/ML VIAL 1ML IV SCH ×2 (08:54→20:16)
[2023-04-27] MEDS: NIFEDIPINE CR 30 MG TAB PO SCH ×2 (08:54→17:30)
[2023-04-27] MEDS: FUROSEMIDE 20 MG TAB PO SCH (08:55)
[2023-04-27] MEDS: HEPARIN SOD (PORCINE) 5,000 UNIT/ML VIAL SC SCH ×2 (08:55→20:26)
[2023-04-27] MEDS: INSULIN LISPRO 100 UNIT/1 ML 3ML VIAL SQ SCH ×4 (08:56→19:56)
[2023-04-27] MEDS: AZITHROMYCIN 250 MG TAB PO SCH (20:17)
[2023-04-28] VITALS (13 sets, daily range): BP systolic 130–149; BP diastolic 62–78; PULSE 72–83; RESP 18–21; TEMP 98–98.3; O2SAT 93–98
[2023-04-28] MEDS: ALBUTEROL/IPRATROPIUM 3 ML NEB NEB SCH ×6 (03:22→23:28)
[2023-04-28] MEDS: TRAMADOL HCL 50 MG TAB PO PRN (05:27)
[2023-04-28 05:59] LABS: BASOPHILS % 0.2 % (0.0-1.0); EOSINOPHILS % 0.1 % (0.0-6.0); HEMOGLOBIN 12.2 g/dL (12.0-16.0); LYMPHOCYTES # (AUTO) 0.6 (1.0-3.2); LYMPHOCYTES % 5.4 % (18.0-39.1); MEAN CORPUSCULAR HEMOGLOBIN 32.1 pg (28-32); MEAN CORPUSCULAR VOLUME 97.4 fL (81-99); MONOCYTES # (AUTO) 0.5 (0.2-0.8); MONOCYTES % 4.7 % (4.4-11.3); NEUTROPHILS # (AUTO) 9.7 (2.1-6.9); PLATELET COUNT 195 x10e3/uL (140-360); RED CELL DISTRIBUTION WIDTH 12.9 % (11.7-14.4); WHITE BLOOD COUNT 11.01 x10e3/uL (4.8-10.8)
[2023-04-28 06:25] LABS: ANION GAP 13.7 mmol/L (8-16); CALCIUM 8.8 mg/dL (8.4-10.2); CREATININE, SERUM 1.19 mg/dL (0.57-1.11); POTASSIUM 4.7 mmol/L (3.5-5.1)
[2023-04-28] MEDS: INSULIN LISPRO 100 UNIT/1 ML 3ML VIAL SQ SCH ×4 (07:30→21:00)
[2023-04-28] MEDS: NIFEDIPINE CR 30 MG TAB PO SCH ×2 (09:29→18:26)
[2023-04-28] MEDS: METHYLPREDNISOLONE SOD SUCC 40 MG/ML VIAL 1ML IV SCH ×2 (09:29→20:55)
[2023-04-28] MEDS: HEPARIN SOD (PORCINE) 5,000 UNIT/ML VIAL SC SCH (09:33)
[2023-04-28] MEDS: GABAPENTIN 100 MG CAP PO SCH ×2 (12:05→18:26)
[2023-04-28] MEDS ORDERED: ONDANSETRON HCL 4 MG ORAL DISINTEGRATING TAB PO PRN ×2 (14:00)
[2023-04-28] MEDS: Morphine 2mg Syringe 2 MG/ML SYR IV PRN (14:13)
[2023-04-28] MEDS: ENOXAPARIN SOD INJ 40 MG/0.4 ML SYR SC SCH (18:26)
[2023-04-28] MEDS: AZITHROMYCIN 250 MG TAB PO SCH (20:55)
[2023-04-29] VITALS (13 sets, daily range): BP systolic 126–144; BP diastolic 63–77; PULSE 65–81; RESP 18–20; TEMP 97.3–98.4; O2SAT 93–99
[2023-04-29] MEDS: ALBUTEROL/IPRATROPIUM 3 ML NEB NEB SCH ×6 (03:17→23:10)
[2023-04-29 06:11] LABS: BASOPHILS % 0.3 % (0.0-1.0); EOSINOPHILS % 0.1 % (0.0-6.0); HEMATOCRIT 35.3 % (34.2-44.1); HEMOGLOBIN 11.4 g/dL (12.0-16.0); LYMPHOCYTES # (AUTO) 0.6 (1.0-3.2); LYMPHOCYTES % 5.9 % (18.0-39.1); MEAN CORPUSCULAR HEMOGLOBIN 31.8 pg (28-32); MEAN CORPUSCULAR HGB CONC 32.3 g/dL (31-35); MEAN CORPUSCULAR VOLUME 98.6 fL (81-99); MONOCYTES # (AUTO) 0.4 (0.2-0.8); MONOCYTES % 4.6 % (4.4-11.3); NEUTROPHILS # (AUTO) 8.1 (2.1-6.9); NEUTROPHILS % 86.7 % (38.7-80.0); PLATELET COUNT 196 x10e3/uL (140-360); RED BLOOD COUNT 3.58 x10e6/uL (3.6-5.1); WHITE BLOOD COUNT 9.36 x10e3/uL (4.8-10.8)
[2023-04-29 06:33] LABS: ANION GAP 13.8 mmol/L (8-16); CALCIUM 8.6 mg/dL (8.4-10.2); CREATININE, SERUM 1.18 mg/dL (0.57-1.11); POTASSIUM 4.8 mmol/L (3.5-5.1)
[2023-04-29] MEDS: INSULIN LISPRO 100 UNIT/1 ML 3ML VIAL SQ SCH ×4 (08:31→20:35)
[2023-04-29] MEDS: METHYLPREDNISOLONE SOD SUCC 40 MG/ML VIAL 1ML IV SCH ×2 (08:53→20:30)
[2023-04-29] MEDS: GABAPENTIN 100 MG CAP PO SCH ×2 (08:55→17:11)
[2023-04-29] MEDS: ENOXAPARIN SOD INJ 40 MG/0.4 ML SYR SC SCH ×2 (08:55→17:11)
[2023-04-29] MEDS: NIFEDIPINE CR 30 MG TAB PO SCH ×2 (08:55→17:11)
[2023-04-29] MEDS ORDERED: KETOROLAC TROMETHAMINE 30 MG/ML VIAL IV ONE (12:45)
[2023-04-29] MEDS: AZITHROMYCIN 250 MG TAB PO SCH (20:30)
[2023-04-29] MEDS: Morphine 2mg Syringe 2 MG/ML SYR IV PRN (21:01)
[2023-04-29] MEDS: TRAMADOL HCL 50 MG TAB PO PRN (21:41)
[2023-04-30] VITALS (7 sets, daily range): BP systolic 132–166; BP diastolic 72–85; PULSE 64–77; RESP 18–20; TEMP 97.7–98.2; O2SAT 94–99
[2023-04-30] MEDS: ALBUTEROL/IPRATROPIUM 3 ML NEB NEB SCH ×3 (03:11→11:39)
[2023-04-30 05:46] LABS: ANION GAP 12.1 mmol/L (8-16); CALCIUM 8.4 mg/dL (8.4-10.2); CREATININE, SERUM 1.11 mg/dL (0.57-1.11); POTASSIUM 5.1 mmol/L (3.5-5.1)
[2023-04-30] MEDS: INSULIN LISPRO 100 UNIT/1 ML 3ML VIAL SQ SCH ×2 (07:25→11:16)
[2023-04-30] MEDS: NIFEDIPINE CR 30 MG TAB PO SCH (08:55)
[2023-04-30] MEDS: METHYLPREDNISOLONE SOD SUCC 40 MG/ML VIAL 1ML IV SCH (08:55)
[2023-04-30] MEDS: ENOXAPARIN SOD INJ 40 MG/0.4 ML SYR SC SCH (08:56)
[2023-04-30] MEDS ORDERED: GABAPENTIN 100 MG CAP PO SCH (09:00)
[2023-04-30] MEDS ORDERED: SYMBICORT 16010.2 GM INH (12:14)
[2023-04-30] MEDS ORDERED: VENTOLIN HFA18 GM INH (12:14)
[2023-04-30] MEDS ORDERED: GABAPENTIN100 MG PO (12:15)
== END 2023-04-30 13:33 | disposition home or self-care (01) | DRG 191 ==
LOC: FSED 15:24 → ERHOLD 16:33 → MED/SURG2 18:28 → OBSVTOIN 04-27 10:25
PROVIDERS: ADMIT Internal Medicine; ATTEND Internal Medicine
DX: J44.1 Chronic obstructive pulmonary disease with (acute) exacerbation (principal); Z68.41 Body mass index [BMI] 40.0-44.9, adult; E66.01 Morbid (severe) obesity due to excess calories; R53.81 Other malaise; I12.9 Hypertensive chronic kidney disease with stage 1 through stage 4 chronic kidney disease, or unspecified chronic kidney disease; E11.22 Type 2 diabetes mellitus with diabetic chronic kidney disease; N18.9 Chronic kidney disease, unspecified; Z79.84 Long term (current) use of oral hypoglycemic drugs; D72.829 Elevated white blood cell count, unspecified; M54.31 Sciatica, right side; I27.21 Secondary pulmonary arterial hypertension; G47.33 Obstructive sleep apnea (adult) (pediatric); G89.29 Other chronic pain; M47.816 Spondylosis without myelopathy or radiculopathy, lumbar region; M16.0 Bilateral primary osteoarthritis of hip; Z79.899 Other long term (current) drug therapy; Z79.82 Long term (current) use of aspirin
CPT/HCPCS: 0223U; 36415; 71045; 80048; 80053; 80076; 81003; 82550; 82553; 82948; 83036; 83735; 83880; 84443; 84484; 85025; 93005; 93306; 94640; 94799; 96374; 99284; G0378; J1644; J1650; J1885; J1940; J2270; J2405; J2920

== ENCOUNTER 2023-06-03 16:57 | Emergency (ER) | payer MEDICARE ==
[~2023-06-03] VITALS: Ht 165.1 cm; Wt 110.2 kg
[~2023-06-03 16:57] MED LIST changes: +GABAPENTIN100 MG PO; +LEVOTHYROXINE50 MCG PO; +OMEPRAZOLE40 MG PO
[2023-06-03] MEDS ORDERED: ASPIRIN 81 MG CHEW TAB PO ONE (17:45)
[2023-06-03 17:57] LABS: BASOPHILS % 0.1 % (0.0-1.0); EOSINOPHILS % 1.5 % (0.0-6.0); HEMOGLOBIN 12.4 g/dL (12.0-16.0); LYMPHOCYTES % 23.2 % (18.0-39.1); MEAN CORPUSCULAR HEMOGLOBIN 32.5 pg (28-32); MEAN CORPUSCULAR HGB CONC 33.5 g/dL (31-35); MEAN CORPUSCULAR VOLUME 96.9 fL (81-99); MONOCYTES % 9.8 % (4.4-11.3); NEUTROPHILS % 64.3 % (38.7-80.0); PLATELET COUNT 139 x10e3/uL (140-360); RED BLOOD COUNT 3.82 x10e6/uL (3.6-5.1); RED CELL DISTRIBUTION WIDTH 12.8 % (11.7-14.4); WHITE BLOOD COUNT 7.45 x10e3/uL (4.8-10.8)
[2023-06-03 17:58] LABS: EOSINOPHILS # (AUTO) 0.1 (0.0-0.4); LYMPHOCYTES # (AUTO) 1.7 (1.0-3.2); MONOCYTES # (AUTO) 0.7 (0.2-0.8); NEUTROPHILS # (AUTO) 4.8 (2.1-6.9)
[2023-06-03] MEDS ORDERED: ONDANSETRON HCL INJ 2MG/ML 2ML 2 MG/ML VIAL IV STA (18:04)
[2023-06-03 18:09] LABS: INR 0.97; PROTHROMBIN TIME 13.1 seconds (11.9-14.5)
[2023-06-03 18:10] LABS: PARTIAL THROMBOPLASTIN TIME 30.1 seconds (23.8-35.5)
[2023-06-03 18:16] LABS: ALANINE AMINOTRANSFERASE 11 IU/L (0-55); ALBUMIN 3.7 g/dL (3.5-5.0); ALBUMIN/GLOBULIN RATIO 1.4 (0.8-2.0); ALKALINE PHOSPHATASE 77 IU/L (40-150); ANION GAP 14.9 mmol/L (8-16); BILIRUBIN,TOTAL 0.7 mg/dL (0.2-1.2); BLOOD UREA NITROGEN 19 mg/dL (7-26); BUN/CREATININE RATIO 17 (6-25); CALCIUM 9.2 mg/dL (8.4-10.2); CARBON DIOXIDE 26 mmol/L (22-29); CHLORIDE 105 mmol/L (98-107); CREATINE KINASE 33 IU/L (29-168); EST GLOMERULAR FILTRATION RATE 49 ML/MIN (>=60); GLUCOSE 114 mg/dL (74-118); POTASSIUM 3.9 mmol/L (3.5-5.1); SODIUM 142 mmol/L (136-145); TOTAL PROTEIN 6.3 g/dL (6.5-8.1)
[2023-06-03 18:26] LABS: TROPONIN I < 0.001 ng/mL (0-0.300)
[2023-06-03 18:49] LABS: BACTERIA,URINE MODERATE /HPF; BILIRUBIN,URINE NEGATIVE (NEGATIVE); CLARITY,URINE CLOUDY (CLEAR); COLOR,URINE YELLOW (YELLOW); EPITHELIAL CELLS,URINE MANY /LPF; GLUCOSE, URINE NEGATIVE (NEGATIVE); KETONES,URINE NEGATIVE (NEGATIVE); LEUKOCYTE ESTERASE ,URINE 1+ (NEGATIVE); NITRITE,URINE NEGATIVE (NEGATIVE); PH,URINE 7 (5 - 7); PROTEIN,URINE DIPSTICK NEGATIVE (NEGATIVE); RENAL EPITHELIAL CELLS,URINE MANY; TRANSITIONAL EPI CELLS,URINE FEW; URINE UROBILINOGEN 1 mg/dL (0.2 - 1); WBC,URINE (MAN) 21-50 /HPF (0-5)
[2023-06-03] MEDS ORDERED: ONDANSETRON ODT4 MG SL (20:25)
[2023-06-03] MEDS ORDERED: CEFDINIR300 MG PO (20:25)
[2023-06-03 21:21] VITALS: BP 142/67; PULSE 63; RESP 19; TEMP 98.7; O2SAT 99
== END 2023-06-03 21:15 | disposition home or self-care (01) ==
LOC: ER 18:01
DX: R06.02 Shortness of breath (principal); N39.0 Urinary tract infection, site not specified; R10.10 Upper abdominal pain, unspecified; M54.50 Low back pain, unspecified; I10 Essential (primary) hypertension; E11.9 Type 2 diabetes mellitus without complications; J44.9 Chronic obstructive pulmonary disease, unspecified; I25.10 Atherosclerotic heart disease of native coronary artery without angina pectoris; K21.9 Gastro-esophageal reflux disease without esophagitis; F32.A Depression, unspecified
CPT/HCPCS: 36415; 71045; 74176; 80053; 81001; 82550; 83690; 83880; 84484; 85025; 85610; 85730; 93005; 99284; C9113; J0696; J2405; U0002

== ENCOUNTER 2023-07-27 23:46 | Emergency (ER) | payer MEDICARE ==
[~2023-07-27] VITALS: Ht 317.5 cm; Wt 110.2 kg
[~2023-07-27 23:46] MED LIST changes: +CEFDINIR300 MG PO; +ONDANSETRON ODT4 MG SL
[2023-07-27 23:56] VITALS: O2SAT 97
[2023-07-28] MEDS ORDERED: ONDANSETRON HCL INJ 2MG/ML 2ML 2 MG/ML VIAL IV STA (00:03)
[2023-07-28] MEDS ORDERED: ONDANSETRON HCL 4 MG ORAL DISINTEGRATING TAB ONE (00:08)
[2023-07-28] MEDS ORDERED: TRAMADOL HCL 50 MG TAB PO ONE (00:15)
[2023-07-28 00:23] LABS: BASOPHILS % 0.3 % (0.0-1.0); EOSINOPHILS # (AUTO) 0.1 (0.0-0.4); EOSINOPHILS % 1.9 % (0.0-6.0); HEMATOCRIT 39.5 % (34.2-44.1); LYMPHOCYTES # (AUTO) 1.7 (1.0-3.2); LYMPHOCYTES % 22.8 % (18.0-39.1); MEAN CORPUSCULAR HEMOGLOBIN 32.6 pg (28-32); MEAN CORPUSCULAR HGB CONC 32.9 g/dL (31-35); MONOCYTES # (AUTO) 0.7 (0.2-0.8); MONOCYTES % 9.6 % (4.4-11.3); NEUTROPHILS # (AUTO) 4.9 (2.1-6.9); NEUTROPHILS % 64.9 % (38.7-80.0); PLATELET COUNT 148 x10e3/uL (140-360); RED BLOOD COUNT 3.99 x10e6/uL (3.6-5.1); RED CELL DISTRIBUTION WIDTH 12.6 % (11.7-14.4); WHITE BLOOD COUNT 7.47 x10e3/uL (4.8-10.8)
[2023-07-28 00:34] LABS: ALBUMIN/GLOBULIN RATIO 1.3 (0.8-2.0); ANION GAP 14.5 mmol/L (8-16); BILIRUBIN,TOTAL 0.5 mg/dL (0.2-1.2); CALCIUM 9.6 mg/dL (8.4-10.2); CREATININE, SERUM 1.18 mg/dL (0.57-1.11); POTASSIUM 3.5 mmol/L (3.5-5.1); TOTAL PROTEIN 7.2 g/dL (6.5-8.1)
[2023-07-28] MEDS ORDERED: NAPROSYN500 MG PO (00:52)
[2023-07-28] MEDS ORDERED: METHOCARBAMOL750 MG PO (00:52)
== END 2023-07-28 01:05 | disposition home or self-care (01) ==
LOC: ER 23:53
DX: M25.512 Pain in left shoulder (principal); M54.2 Cervicalgia; M62.838 Other muscle spasm; E11.65 Type 2 diabetes mellitus with hyperglycemia; I10 Essential (primary) hypertension; J44.9 Chronic obstructive pulmonary disease, unspecified; E03.9 Hypothyroidism, unspecified; I25.10 Atherosclerotic heart disease of native coronary artery without angina pectoris; K21.9 Gastro-esophageal reflux disease without esophagitis; F32.A Depression, unspecified; M54.9 Dorsalgia, unspecified; G89.29 Other chronic pain
CPT/HCPCS: 36415; 80053; 84484; 85025; 93005; 99283; J2405; Q0162

== ENCOUNTER 2023-08-02 10:59 | Emergency (ER) | payer MEDICARE ==
[~2023-08-02] VITALS: Ht 165.1 cm; Wt 110.2 kg
[~2023-08-02 10:59] MED LIST changes: +METHOCARBAMOL750 MG PO; +NAPROSYN500 MG PO
[2023-08-02] MEDS ORDERED: ALBUTEROL/IPRATROPIUM 3 ML NEB NEB ONE (12:15)
[2023-08-02] MEDS ORDERED: ALBUTEROL/IPRATROPIUM 3 ML NEB ONE (12:20)
[2023-08-02] MEDS ORDERED: BENZONATATE100 MG PO (12:41)
[2023-08-02] MEDS ORDERED: ZITHROMAX250 MG PO (12:42)
[2023-08-02] MEDS ORDERED: AZITHROMYCIN 250 MG TAB PO ONE (12:45)
[2023-08-02 12:55] VITALS: PULSE 78; RESP 22; O2SAT 100
== END 2023-08-02 12:55 | disposition home or self-care (01) ==
LOC: FSED 11:04
DX: R05.9 Cough, unspecified (principal); J18.9 Pneumonia, unspecified organism; J44.1 Chronic obstructive pulmonary disease with (acute) exacerbation; Z11.52 Encounter for screening for COVID-19
CPT/HCPCS: 0223U; 71046; 83518; 87400; 99283

== ENCOUNTER 2024-02-09 21:21 | Emergency (ER) | payer MEDICARE ==
[~2024-02-09] VITALS: Ht 165.1 cm; Wt 111.6 kg
[~2024-02-09 21:21] MED LIST changes: +ELIQUIS5 MG PO; +ZITHROMAX250 MG PO
[2024-02-09 21:55] LABS: BASOPHILS % 0.2 % (0.0-1.0); EOSINOPHILS # (AUTO) 0.1 (0.0-0.4); EOSINOPHILS % 0.6 % (0.0-6.0); HEMATOCRIT 38.8 % (34.2-44.1); HEMOGLOBIN 12.5 g/dL (12.0-16.0); LYMPHOCYTES % 14.8 % (18.0-39.1); MEAN CORPUSCULAR HEMOGLOBIN 31.3 pg (28-32); MEAN CORPUSCULAR HGB CONC 32.2 g/dL (31-35); MONOCYTES # (AUTO) 0.9 (0.2-0.8); MONOCYTES % 6.4 % (4.4-11.3); NEUTROPHILS # (AUTO) 10.3 (2.1-6.9); NEUTROPHILS % 77.2 % (38.7-80.0); PLATELET COUNT 180 x10e3/uL (140-360); RED CELL DISTRIBUTION WIDTH 13.5 % (11.7-14.4); WHITE BLOOD COUNT 13.33 x10e3/uL (4.8-10.8)
[2024-02-09] MEDS: ONDANSETRON HCL INJ 2MG/ML 2ML 2 MG/ML VIAL IV STA (22:06)
[2024-02-09] MEDS: HYDROXYZINE HCL 25 MG TAB PO ONE (22:07)
[2024-02-09] MEDS ORDERED: HYDROXYZINE HCL 25 MG TAB ONE (22:11)
[2024-02-09 22:13] LABS: LIPASE 15 U/L (8-78)
[2024-02-09 22:15] LABS: ALBUMIN 3.9 g/dL (3.5-5.0); ALBUMIN/GLOBULIN RATIO 1.6 (0.8-2.0); ANION GAP 16.3 mmol/L (8-16); BILIRUBIN,TOTAL 0.4 mg/dL (0.2-1.2); CALCIUM 8.5 mg/dL (8.4-10.2); CREATININE, SERUM 1.25 mg/dL (0.57-1.11); POTASSIUM 3.3 mmol/L (3.5-5.1); TOTAL PROTEIN 6.4 g/dL (6.5-8.1)
[2024-02-09 22:27] LABS: TROPONIN I < 0.001 ng/mL (0-0.300)
[2024-02-10 00:03] LABS: BILIRUBIN,URINE NEGATIVE (NEGATIVE); CLARITY,URINE CLEAR (CLEAR); COLOR,URINE YELLOW (YELLOW); GLUCOSE, URINE NEGATIVE (NEGATIVE); KETONES,URINE NEGATIVE (NEGATIVE); LEUKOCYTE ESTERASE ,URINE NEGATIVE (NEGATIVE); NITRITE,URINE NEGATIVE (NEGATIVE); PH,URINE 6 (5 - 7); PROTEIN,URINE DIPSTICK NEGATIVE (NEGATIVE); URINE UROBILINOGEN 0.2 mg/dL (0.2 - 1)
[2024-02-10 00:08] LABS: BACTERIA,URINE FEW /HPF; EPITHELIAL CELLS,URINE FEW /LPF; HYALINE CASTS 0-1 (0-1); RBC,URINE 0-5 /HPF (0-5); WBC,URINE (MAN) 0-5 /HPF (0-5)
[2024-02-10 01:30] VITALS: PULSE 61; RESP 16; TEMP 98.4; O2SAT 96
[2024-02-10] MEDS ORDERED: ONDANSETRON ODT4 MG PO (01:41)
[2024-02-10] MEDS ORDERED: PANTOPRAZOLE SO40 MG PO (01:41)
== END 2024-02-10 01:46 | disposition home or self-care (01) ==
LOC: ER 21:25
DX: R10.33 Periumbilical pain (principal); G89.29 Other chronic pain; F41.9 Anxiety disorder, unspecified; I10 Essential (primary) hypertension; E11.65 Type 2 diabetes mellitus with hyperglycemia; J44.9 Chronic obstructive pulmonary disease, unspecified; E03.9 Hypothyroidism, unspecified; J45.909 Unspecified asthma, uncomplicated; I25.10 Atherosclerotic heart disease of native coronary artery without angina pectoris; F32.A Depression, unspecified; K21.9 Gastro-esophageal reflux disease without esophagitis; Z11.52 Encounter for screening for COVID-19; R94.31 Abnormal electrocardiogram [ECG] [EKG]; Z86.718 Personal history of other venous thrombosis and embolism
CPT/HCPCS: 36415; 71045; 74176; 80053; 81001; 83690; 84484; 85025; 93005; 99284; J2405; J2470; J3410; U0002

== ENCOUNTER 2024-03-22 08:33 | Inpatient (IN) | payer MEDICARE ==
[~2024-03-22] VITALS: Ht 165.1 cm; Wt 111.6 kg
[~2024-03-22 08:33] MED LIST changes: +PANTOPRAZOLE SO40 MG PO
[2024-03-22 09:18] LABS: BASOPHILS % 0.2 % (0.0-1.0); EOSINOPHILS # (AUTO) 0.1 (0.0-0.4); EOSINOPHILS % 1.4 % (0.0-6.0); LYMPHOCYTES # (AUTO) 2.1 (1.0-3.2); LYMPHOCYTES % 20.6 % (18.0-39.1); MEAN CORPUSCULAR HEMOGLOBIN 31.6 pg (28-32); MEAN CORPUSCULAR HGB CONC 31.7 g/dL (31-35); MEAN CORPUSCULAR VOLUME 99.8 fL (81-99); MONOCYTES # (AUTO) 0.8 (0.2-0.8); NEUTROPHILS # (AUTO) 7.1 (2.1-6.9); NEUTROPHILS % 68.6 % (38.7-80.0); PLATELET COUNT 190 x10e3/uL (140-360); RED BLOOD COUNT 4.11 x10e6/uL (3.6-5.1); WHITE BLOOD COUNT 10.34 x10e3/uL (4.8-10.8)
[2024-03-22] MEDS: DIPHENHYDRAMINE HCL INJ 50 MG/ML VIAL IV ONE (09:22)
[2024-03-22 09:33] LABS: CALCIUM 8.8 mg/dL (8.4-10.2); CREATININE, SERUM 1.23 mg/dL (0.57-1.11)
[2024-03-22] MEDS ORDERED: SODIUM CHLORIDE 0.9% 100 ML ONE (10:29)
[2024-03-22] MEDS ORDERED: IOPAMIDOL 370 MG/ML 100 ML INFUS..BTL INJ ONE (10:30)
[2024-03-22] MEDS ORDERED: SODIUM CHLORIDE FLUSH 10 ML SYR INJ PRN (11:45)
[2024-03-22] MEDS: LORAZEPAM INJ 2 MG/ML VIAL IV ONE (12:09)
[2024-03-22] MEDS ORDERED: GUAIFENESIN/DEXTROMETHORPHAN LIQD 5 ML UDC PO PRN (14:15)
[2024-03-22] MEDS ORDERED: MELATONIN 3 MG TAB PO PRN (14:15)
[2024-03-22] MEDS ORDERED: DOCUSATE SODIUM 100 MG CAP PO PRN (14:15)
[2024-03-22] MEDS ORDERED: CLOPIDOGREL BISULFATE 75 MG TAB ONE (15:38)
[2024-03-22] MEDS: ACETAMINOPHEN 325 MG TAB PO PRN (15:48)
[2024-03-22] MEDS: CLOPIDOGREL BISULFATE 75 MG TAB PO ONE (15:49)
[2024-03-22] MEDS: ASPIRIN 325 MG TAB PO ONE (15:50)
[2024-03-22] MEDS ORDERED: DEXTROSE 50% SYRINGE 50 ML IV PRN (18:45)
[2024-03-22] MEDS: HYDROCODONE/APAP 5MG-325MG TAB PO PRN (19:27)
[2024-03-22 20:59] LABS: TROPONIN I 0.189 ng/mL (0-0.300)
[2024-03-22] MEDS: ATORVASTATIN 40 MG TAB PO SCH (21:58)
[2024-03-22] MEDS: MONTELUKAST SODIUM 10 MG TAB PO SCH (21:58)
[2024-03-22 22:00] VITALS: PULSE 68; RESP 16; TEMP 98
[2024-03-23] VITALS (8 sets, daily range): BP systolic 112–178; BP diastolic 77–92; PULSE 62–81; RESP 17–19; TEMP 97.3–98.5; O2SAT 94–100
[2024-03-23] MEDS: LEVOTHYROXINE SODIUM 75 MCG TAB PO SCH (05:22)
[2024-03-23 05:56] LABS: ANION GAP 15.7 mmol/L (8-16); CALCIUM 8.6 mg/dL (8.4-10.2); CREATININE, SERUM 1.55 mg/dL (0.57-1.11); MAGNESIUM 1.9 MG/DL (1.3-2.1); POTASSIUM 3.7 mmol/L (3.5-5.1)
[2024-03-23 06:03] LABS: TROPONIN I 0.199 ng/mL (0-0.300)
[2024-03-23] MEDS: VENLAFAXINE HCL 75 MG TAB PO SCH (09:06)
[2024-03-23] MEDS: GABAPENTIN 100 MG CAP PO SCH (09:06)
[2024-03-23] MEDS: ASPIRIN 325 MG TAB EC PO SCH (09:06)
[2024-03-23] MEDS: CLOPIDOGREL BISULFATE 75 MG TAB PO SCH (09:06)
[2024-03-23] MEDS: PANTOPRAZOLE SODIUM 20 MG TABLET.DR PO SCH (09:06)
[2024-03-23] MEDS: MULTIVITAMINS/MINERALS TAB PO SCH (09:06)
[2024-03-23] MEDS: ONDANSETRON HCL INJ 2MG/ML 2ML 2 MG/ML VIAL IV PRN (12:27)
[2024-03-23] MEDS: NIFEDIPINE CR 30 MG TAB PO ONE (17:02)
[2024-03-24] VITALS (11 sets, daily range): BP systolic 103–146; BP diastolic 56–94; PULSE 69–85; RESP 16–18; TEMP 97.1–98.9; O2SAT 94–100
[2024-03-24 06:04] LABS: ANION GAP 16.2 mmol/L (8-16); CREATININE, SERUM 1.77 mg/dL (0.57-1.11); POTASSIUM 4.2 mmol/L (3.5-5.1)
[2024-03-24 07:01] LABS: TROPONIN I 0.15 ng/mL (0-0.300)
[2024-03-24] MEDS: NIFEDIPINE CR 30 MG TAB PO SCH (09:00)
[2024-03-24] MEDS: MAGNESIUM/ALUMINUM/SIMETHICONE 30 ML UDC PO PRN (10:43)
[2024-03-24] MEDS: AMLODIPINE BESYLATE 5 MG TAB PO SCH (16:27)
[2024-03-24 21:51] LABS: BILIRUBIN,URINE NEGATIVE (NEGATIVE); CLARITY,URINE CLEAR (CLEAR); COLOR,URINE YELLOW (YELLOW); GLUCOSE, URINE NEGATIVE (NEGATIVE); KETONES,URINE NEGATIVE (NEGATIVE); LEUKOCYTE ESTERASE ,URINE 1+ (NEGATIVE); NITRITE,URINE NEGATIVE (NEGATIVE); PH,URINE 5.5 (5 - 7); PROTEIN,URINE DIPSTICK NEGATIVE (NEGATIVE); URINE UROBILINOGEN 0.2 mg/dL (0.2 - 1)
[2024-03-24 22:05] LABS: BACTERIA,URINE MANY /HPF; CALCIUM OXALATE CRYSTALS,UR FEW (FEW); EPITHELIAL CELLS,URINE FEW /LPF; RENAL EPITHELIAL CELLS,URINE FEW; WBC,URINE (MAN) >50 /HPF (0-5)
[2024-03-25] VITALS (8 sets, daily range): BP systolic 135–176; BP diastolic 64–131; PULSE 67–97; RESP 18–25; TEMP 98–98.8; O2SAT 97–100
[2024-03-25 06:24] LABS: ANION GAP 12.7 mmol/L (8-16); CALCIUM 8.5 mg/dL (8.4-10.2); CREATININE, SERUM 1.44 mg/dL (0.57-1.11); POTASSIUM 4.7 mmol/L (3.5-5.1)
[2024-03-25] MEDS ORDERED: AMLODIPINE BESYLATE 5 MG TAB PO SCH (09:00)
[2024-03-25] MEDS: METHYLPREDNISOLONE SOD SUCC 125 MG/2ML VIAL IV ONE (17:29)
[2024-03-25] MEDS: ALBUTEROL SULF 0.083% NEB SOLN 3 ML NEB NEB PRN (17:34)
[2024-03-25 18:44] LABS: ABG HCO3 28 mmol/L (22-26); ABG PCO2 60 mmHg (35-45); ABG PH 7.28 (7.35-7.45); ABG PO2 114 mmHg (80-105); ABG TCO2 30
[2024-03-25] MEDS: IPRATROPIUM BROMIDE 0.02% 2.5 ML NEB NEB SCH (19:00)
[2024-03-25] MEDS: FUROSEMIDE INJ 10 MG/ML 4 ML VIAL IV ONE (23:01)
[2024-03-25] MEDS: METHYLPREDNISOLONE SOD SUCC 40 MG/ML VIAL 1ML IV SCH (23:02)
[2024-03-26] VITALS (12 sets, daily range): BP systolic 147–176; BP diastolic 63–84; PULSE 70–82; RESP 16–22; TEMP 98.1–98.3; O2SAT 95–100
[2024-03-26 05:25] LABS: ANION GAP 14.7 mmol/L (8-16); CALCIUM 9.3 mg/dL (8.4-10.2); CREATININE, SERUM 1.2 mg/dL (0.57-1.11); POTASSIUM 4.7 mmol/L (3.5-5.1)
[2024-03-26] MEDS: HYDRALAZINE HCL 20 MG/ML VIAL IV PRN (07:47)
[2024-03-26] MEDS ORDERED: SODIUM CHLORIDE 0.9% 250ML 250 ML ONE (09:04)
[2024-03-26] MEDS: FUROSEMIDE INJ 10 MG/ML 4 ML VIAL IV SCH (09:21)
[2024-03-26 09:23] LABS: ABG HCO3 28 mmol/L (22-26); ABG PCO2 49 mmHg (35-45); ABG PH 7.37 (7.35-7.45); ABG PO2 91 mmHg (80-105); ABG TCO2 29
[2024-03-26] MEDS: METHOCARBAMOL 750 MG TAB PO PRN (10:41)
[2024-03-26] MEDS: INSULIN REGULAR, HUMAN 100 UNIT/1 ML SQ SCH (11:54)
[2024-03-26] MEDS: BACLOFEN 10 MG TAB PO SCH (11:57)
[2024-03-26] MEDS: CARVEDILOL 12.5 MG TAB PO SCH (16:27)
[2024-03-26] MEDS: AMLODIPINE BESYLATE 5 MG TAB PO ONE (16:27)
[2024-03-27] VITALS (7 sets, daily range): BP systolic 148–159; BP diastolic 67–71; PULSE 63–79; RESP 18–22; TEMP 97.5–98.2; O2SAT 97–99
[2024-03-27] MEDS: PREDNISONE 20 MG TAB PO SCH (08:11)
[2024-03-27] MEDS: AMLODIPINE BESYLATE 10 MG TAB PO SCH (08:13)
[2024-03-27] MEDS ORDERED: CHLORASEPTIC SPRAY 177 ML BTL MM PRN (11:15)
[2024-03-27] MEDS ORDERED: CEPACOL SORE THROAT LOZENGES PO PRN (11:15)
[2024-03-27] MEDS ORDERED: NORVASC10 MG PO (11:18)
[2024-03-27] MEDS ORDERED: ASPIRIN ENTERI325 MG PO (11:18)
[2024-03-27] MEDS ORDERED: HUMULIN R100 UNIT/2 SQ (11:18)
[2024-03-27] MEDS ORDERED: PLAVIX75 MG PO (11:18)
[2024-03-27] MEDS ORDERED: LASIX40 MG PO (11:18)
[2024-03-27] MEDS ORDERED: COREG12.5 MG PO (11:18)
[2024-03-27] MEDS ORDERED: ceftriaxone IV (11:18)
[2024-03-27] MEDS ORDERED: PREDNISONE20 MG PO (11:18)
[2024-03-27] MEDS ORDERED: BACLOFEN10 MG PO (11:18)
== END 2024-03-27 13:45 | DRG 64 ==
LOC: ER 08:51 → ERHOLD 11:38 → MED/SURG2 03-23 00:05 → IMCU 03-25 20:45
PROVIDERS: ADMIT Internal Medicine Critical Care Medicine; ATTEND Internal Medicine Critical Care Medicine
PROC: 5A09357 Assistance with Respiratory Ventilation, Less than 24 Consecutive Hours, Continuous Positive Airway Pressure (ICD-10-PCS; principal; 2024-03-25)
DX: I63.511 Cerebral infarction due to unspecified occlusion or stenosis of right middle cerebral artery (principal); G92.8 Other toxic encephalopathy; J96.02 Acute respiratory failure with hypercapnia; J96.01 Acute respiratory failure with hypoxia; G81.94 Hemiplegia, unspecified affecting left nondominant side; E66.2 Morbid (severe) obesity with alveolar hypoventilation; Z68.41 Body mass index [BMI] 40.0-44.9, adult; N39.0 Urinary tract infection, site not specified; E11.40 Type 2 diabetes mellitus with diabetic neuropathy, unspecified; F01.50 Vascular dementia, unspecified severity, without behavioral disturbance, psychotic disturbance, mood disturbance, and anxiety; R29.810 Facial weakness; R42 Dizziness and giddiness; R53.1 Weakness; I10 Essential (primary) hypertension; E78.5 Hyperlipidemia, unspecified; J44.89 Other specified chronic obstructive pulmonary disease; E03.9 Hypothyroidism, unspecified; I25.10 Atherosclerotic heart disease of native coronary artery without angina pectoris; F32.A Depression, unspecified; K21.9 Gastro-esophageal reflux disease without esophagitis; F41.9 Anxiety disorder, unspecified; R47.81 Slurred speech; R29.702 NIHSS score 2; M54.2 Cervicalgia; T45.516A Underdosing of anticoagulants, initial encounter; Z91.148 Patient's other noncompliance with medication regimen for other reason; Z79.01 Long term (current) use of anticoagulants; Z79.51 Long term (current) use of inhaled steroids; Z79.84 Long term (current) use of oral hypoglycemic drugs; Z79.82 Long term (current) use of aspirin; Z79.02 Long term (current) use of antithrombotics/antiplatelets; Z79.890 Hormone replacement therapy; Z91.041 Radiographic dye allergy status; Z86.718 Personal history of other venous thrombosis and embolism; Z90.49 Acquired absence of other specified parts of digestive tract; Z90.710 Acquired absence of both cervix and uterus; Z88.8 Allergy status to other drugs, medicaments and biological substances; Z91.013 Allergy to seafood
CPT/HCPCS: 36415; 36600; 70450; 70496; 70498; 70551; 71045; 80048; 81001; 82140; 82550; 82805; 82948; 83036; 83735; 84484; 85025; 93005; 93306; 94640; 94660; 94799; 99252; 99285; J0360; J0696; J1200; J1940; J2060; J2405; J2919; J7050; J7512; Q9967

== ENCOUNTER 2024-04-04 14:00 | Inpatient (IN) | payer MEDICARE ==
[~2024-04-04] VITALS: Ht 165.1 cm; Wt 111.6 kg
[~2024-04-04 14:00] MED LIST changes: +ASPIRIN ENTERI325 MG PO; +BACLOFEN10 MG PO; +COREG12.5 MG PO; +HUMULIN R100 UNIT/2 SQ; +LASIX40 MG PO; +PLAVIX75 MG PO; +ceftriaxone IV
[2024-04-04 17:04] VITALS: BP 138/88; PULSE 71; RESP 19; TEMP 97.9; O2SAT 100
[2024-04-04 17:05] VITALS: PULSE 74; RESP 20; O2SAT 96
[2024-04-04 18:10] VITALS: BP 138/88; PULSE 71; RESP 19; TEMP 97.9; O2SAT 100
[2024-04-04] MEDS ORDERED: NEURONTIN300 MG PO (18:45)
[2024-04-04] MEDS ORDERED: ACETAMINOP325 MG/10 PO (18:49)
[2024-04-04] MEDS ORDERED: TYLENOL325 MG PO (18:49)
[2024-04-04 20:00] VITALS: BP 130/62; PULSE 69; RESP 17; TEMP 97.6; O2SAT 100
[2024-04-04 21:00] VITALS: BP 130/62; PULSE 69; RESP 17; TEMP 97.6; O2SAT 100
[2024-04-04] MEDS: MAGNESIUM/ALUMINUM/SIMETHICONE 30 ML UDC PO PRN (21:16)
[2024-04-05] VITALS (13 sets, daily range): BP systolic 122–146; BP diastolic 50–84; PULSE 54–76; RESP 16–20; TEMP 97.3–98.4; O2SAT 96–100
[2024-04-05] MEDS ORDERED: BACLOFEN 10 MG TAB PO PRN (00:30)
[2024-04-05] MEDS ORDERED: MELATONIN 3 MG TAB PO PRN (00:30)
[2024-04-05] MEDS ORDERED: GUAIFENESIN/DEXTROMETHORPHAN LIQD 5 ML UDC PO PRN (00:30)
[2024-04-05] MEDS ORDERED: MAGNESIUM/ALUMINUM/SIMETHICONE 30 ML UDC PO PRN (00:30)
[2024-04-05] MEDS ORDERED: ONDANSETRON HCL INJ 2MG/ML 2ML 2 MG/ML VIAL IV PRN (00:30)
[2024-04-05] MEDS ORDERED: POLYETHYLENE GLYCOL 3350 17 GM PACK PO PRN (00:30)
[2024-04-05] MEDS ORDERED: HYDRALAZINE HCL 20 MG/ML VIAL IV PRN (00:30)
[2024-04-05] MEDS ORDERED: DEXTROSE 50% SYRINGE 50 ML IV PRN (00:45)
[2024-04-05] MEDS: IPRATROPIUM BROMIDE 0.02% 2.5 ML NEB NEB SCH (01:00)
[2024-04-05 06:41] LABS: BASOPHILS % 0.1 % (0.0-1.0); EOSINOPHILS # (AUTO) 0.2 (0.0-0.4); HEMATOCRIT 35.4 % (34.2-44.1); LYMPHOCYTES # (AUTO) 1.8 (1.0-3.2); LYMPHOCYTES % 19.8 % (18.0-39.1); MEAN CORPUSCULAR HEMOGLOBIN 31.6 pg (28-32); MEAN CORPUSCULAR HGB CONC 29.9 g/dL (31-35); MEAN CORPUSCULAR VOLUME 105.7 fL (81-99); MONOCYTES # (AUTO) 0.9 (0.2-0.8); MONOCYTES % 10.1 % (4.4-11.3); NEUTROPHILS # (AUTO) 6.2 (2.1-6.9); NEUTROPHILS % 67.2 % (38.7-80.0); PLATELET COUNT 136 x10e3/uL (140-360); RED BLOOD COUNT 3.35 x10e6/uL (3.6-5.1); RED CELL DISTRIBUTION WIDTH 12.9 % (11.7-14.4); WHITE BLOOD COUNT 9.22 x10e3/uL (4.8-10.8)
[2024-04-05 06:47] LABS: HEMOGLOBIN 10.6 g/dL (12.0-16.0)
[2024-04-05 06:59] LABS: ALBUMIN/GLOBULIN RATIO 1.1 (0.8-2.0); ANION GAP 12.1 mmol/L (8-16); BILIRUBIN,TOTAL 0.3 mg/dL (0.2-1.2); CALCIUM 8.7 mg/dL (8.4-10.2); CREATININE, SERUM 1.02 mg/dL (0.57-1.11); MAGNESIUM 2.1 MG/DL (1.3-2.1); POTASSIUM 4.1 mmol/L (3.5-5.1); TOTAL PROTEIN 5.7 g/dL (6.5-8.1)
[2024-04-05 07:23] LABS: THYROID STIMULATING HORMONE 9.231 uIU/mL (0.350-4.940)
[2024-04-05] MEDS: INSULIN REGULAR, HUMAN 100 UNIT/1 ML SQ SCH (07:30)
[2024-04-05] MEDS: MULTIVITAMINS/MINERALS TAB PO SCH (08:38)
[2024-04-05] MEDS: DOCUSATE SODIUM 100 MG CAP PO SCH (08:38)
[2024-04-05] MEDS: LEVOTHYROXINE SODIUM 75 MCG TAB PO SCH (08:39)
[2024-04-05] MEDS: ASPIRIN 325 MG TAB EC PO SCH (08:39)
[2024-04-05] MEDS: CLOPIDOGREL BISULFATE 75 MG TAB PO SCH (08:39)
[2024-04-05] MEDS: FUROSEMIDE 40 MG TAB PO SCH (08:39)
[2024-04-05] MEDS: PANTOPRAZOLE SOD 40 MG TABEC PO SCH (08:39)
[2024-04-05] MEDS ORDERED: GABAPENTIN 100 MG CAP PO SCH (09:00)
[2024-04-05] MEDS: FLUTICASONE PROPIONATE NASAL SPRAY NS SCH (10:13)
[2024-04-05] MEDS: VENLAFAXINE HCL 75 MG CAPCR PO SCH (12:43)
[2024-04-05] MEDS: AMLODIPINE BESYLATE 10 MG TAB PO SCH (12:43)
[2024-04-05] MEDS: ENOXAPARIN SOD INJ 40 MG/0.4 ML SYR SC SCH (16:51)
[2024-04-05] MEDS: ATORVASTATIN 40 MG TAB PO SCH (20:47)
[2024-04-05] MEDS: GABAPENTIN 300 MG CAP PO SCH (20:47)
[2024-04-05] MEDS: MONTELUKAST SODIUM 10 MG TAB PO SCH (20:47)
[2024-04-06] VITALS (10 sets, daily range): BP systolic 124–148; BP diastolic 57–73; PULSE 57–78; RESP 16–22; TEMP 97.6–98.5; O2SAT 90–100
[2024-04-06] MEDS ORDERED: LEVOTHYROXINE SODIUM 75 MCG TAB PO SCH (06:00)
[2024-04-06] MEDS: LEVOTHYROXINE SODIUM 100 MCG TAB PO SCH (06:19)
[2024-04-07] VITALS (13 sets, daily range): BP systolic 123–143; BP diastolic 60–75; PULSE 54–78; RESP 16–22; TEMP 97.6–98.4; O2SAT 94–99
[2024-04-07] MEDS: ALBUTEROL SULF 0.083% NEB SOLN 3 ML NEB NEB PRN (19:40)
[2024-04-08] VITALS (12 sets, daily range): BP systolic 137–163; BP diastolic 66–81; PULSE 61–75; RESP 16–21; TEMP 97.9–98.5; O2SAT 96–100
[2024-04-08] MEDS: LEVOTHYROXINE SODIUM 125 MCG TAB PO SCH (06:05)
[2024-04-08] MEDS: ACETAMINOPHEN 325 MG TAB PO PRN (11:43)
[2024-04-09] VITALS (10 sets, daily range): BP systolic 141–165; BP diastolic 58–75; PULSE 63–69; RESP 16–20; TEMP 97.8–98.5; O2SAT 90–100
[2024-04-09] MEDS: HYDROCHLOROTHIAZIDE 25 MG TAB PO SCH (18:28)
[2024-04-10] VITALS (11 sets, daily range): BP systolic 135–161; BP diastolic 63–78; PULSE 64–74; RESP 16–22; TEMP 98–99; O2SAT 95–100
[2024-04-11] VITALS (9 sets, daily range): BP systolic 143–151; BP diastolic 65–79; PULSE 61–72; RESP 16–21; TEMP 97.6–98.2; O2SAT 95–100
[2024-04-11] MEDS ORDERED: ESIDRIX25 MG PO (11:03)
[2024-04-11] MEDS ORDERED: ALBUTEROL2.5 MG/3 M NEB (11:03)
[2024-04-11] MEDS ORDERED: SYNTHROID125 MCG PO (11:03)
== END 2024-04-11 16:50 | DRG 64 ==
LOC: MED/SURG3 14:00
PROVIDERS: ADMIT Internal Medicine Critical Care Medicine; ATTEND Internal Medicine Critical Care Medicine
DX: I63.89 Other cerebral infarction (principal); G92.8 Other toxic encephalopathy; J96.01 Acute respiratory failure with hypoxia; G81.94 Hemiplegia, unspecified affecting left nondominant side; E66.2 Morbid (severe) obesity with alveolar hypoventilation; Z68.41 Body mass index [BMI] 40.0-44.9, adult; I44.1 Atrioventricular block, second degree; E11.9 Type 2 diabetes mellitus without complications; I10 Essential (primary) hypertension; R29.810 Facial weakness; I44.0 Atrioventricular block, first degree; E03.9 Hypothyroidism, unspecified; J44.89 Other specified chronic obstructive pulmonary disease; I25.10 Atherosclerotic heart disease of native coronary artery without angina pectoris; R42 Dizziness and giddiness; F41.9 Anxiety disorder, unspecified; F32.A Depression, unspecified; M54.9 Dorsalgia, unspecified; R29.700 NIHSS score 0; Z79.02 Long term (current) use of antithrombotics/antiplatelets; Z79.82 Long term (current) use of aspirin; Z79.52 Long term (current) use of systemic steroids; Z79.4 Long term (current) use of insulin; Z79.890 Hormone replacement therapy; Z86.73 Personal history of transient ischemic attack (TIA), and cerebral infarction without residual deficits; Z86.718 Personal history of other venous thrombosis and embolism; Z91.041 Radiographic dye allergy status; Z91.013 Allergy to seafood; Z88.8 Allergy status to other drugs, medicaments and biological substances; Z82.49 Family history of ischemic heart disease and other diseases of the circulatory system
CPT/HCPCS: 36415; 80053; 82948; 83735; 84443; 85025; 93005; 94640; 94660; 94799; 96372; 99252; J1650; J2405

== ENCOUNTER 2024-04-30 22:35 | Emergency (ER) | payer MEDICARE ==
[~2024-04-30] VITALS: Ht 317.5 cm; Wt 111.6 kg
[~2024-04-30 22:35] MED LIST changes: +ACETAMINOP325 MG/10 PO; +ALBUTEROL2.5 MG/3 M NEB; +ESIDRIX25 MG PO; +NEURONTIN300 MG PO; +SYNTHROID125 MCG PO; +TYLENOL325 MG PO
[2024-04-30 22:45] VITALS: TEMP 98.7
[2024-04-30 23:06] LABS: BASOPHILS % 0.3 % (0.0-1.0); EOSINOPHILS # (AUTO) 0.1 (0.0-0.4); EOSINOPHILS % 1.7 % (0.0-6.0); HEMATOCRIT 33.3 % (34.2-44.1); HEMOGLOBIN 10.1 g/dL (12.0-16.0); LYMPHOCYTES # (AUTO) 0.9 (1.0-3.2); LYMPHOCYTES % 11.9 % (18.0-39.1); MEAN CORPUSCULAR HEMOGLOBIN 31.8 pg (28-32); MEAN CORPUSCULAR HGB CONC 30.3 g/dL (31-35); MEAN CORPUSCULAR VOLUME 104.7 fL (81-99); MONOCYTES # (AUTO) 0.8 (0.2-0.8); MONOCYTES % 10.2 % (4.4-11.3); NEUTROPHILS # (AUTO) 5.7 (2.1-6.9); PLATELET COUNT 148 x10e3/uL (140-360); RED BLOOD COUNT 3.18 x10e6/uL (3.6-5.1); RED CELL DISTRIBUTION WIDTH 13.7 % (11.7-14.4); WHITE BLOOD COUNT 7.75 x10e3/uL (4.8-10.8)
[2024-04-30] MEDS ORDERED: SODIUM CHLORIDE 0.9% 1000ML 1,000 ML ONE (23:07)
[2024-04-30] MEDS: SODIUM CHLORIDE 0.9% 1000ML 1,000 ML IV ONE (23:14)
[2024-04-30 23:32] LABS: ALBUMIN 3.5 g/dL (3.5-5.0); ALBUMIN/GLOBULIN RATIO 1.1 (0.8-2.0); ANION GAP 14.7 mmol/L (8-16); BILIRUBIN,TOTAL 0.6 mg/dL (0.2-1.2); CALCIUM 8.5 mg/dL (8.4-10.2); CREATININE, SERUM 1.23 mg/dL (0.57-1.11); POTASSIUM 3.7 mmol/L (3.5-5.1); TOTAL PROTEIN 6.6 g/dL (6.5-8.1)
[2024-04-30 23:43] LABS: CLARITY,URINE CLEAR (CLEAR); COLOR,URINE YELLOW (YELLOW); LEUKOCYTE ESTERASE ,URINE NEGATIVE (NEGATIVE); NITRITE,URINE NEGATIVE (NEGATIVE); PH,URINE 5.5 (5 - 7)
[2024-04-30 23:44] LABS: BILIRUBIN,URINE NEGATIVE (NEGATIVE); GLUCOSE, URINE NEGATIVE (NEGATIVE); KETONES,URINE NEGATIVE (NEGATIVE); PROTEIN,URINE DIPSTICK NEGATIVE (NEGATIVE); URINE UROBILINOGEN 0.2 mg/dL (0.2 - 1)
[2024-05-01 00:02] LABS: BACTERIA,URINE MODERATE /HPF; EPITHELIAL CELLS,URINE FEW /LPF; RBC,URINE 0-5 /HPF (0-5); WBC,URINE (MAN) 0-5 /HPF (0-5)
[2024-05-01 01:15] VITALS: PULSE 69; RESP 22; O2SAT 95
== END 2024-05-01 02:15 | disposition home or self-care (01) ==
LOC: ER 22:43
DX: M25.511 Pain in right shoulder (principal); R10.30 Lower abdominal pain, unspecified; W01.0XXA Fall on same level from slipping, tripping and stumbling without subsequent striking against object, initial encounter; Y92.89 Other specified places as the place of occurrence of the external cause; I10 Essential (primary) hypertension; E11.65 Type 2 diabetes mellitus with hyperglycemia; E78.5 Hyperlipidemia, unspecified; E03.9 Hypothyroidism, unspecified; K21.9 Gastro-esophageal reflux disease without esophagitis; R94.31 Abnormal electrocardiogram [ECG] [EKG]; Z86.73 Personal history of transient ischemic attack (TIA), and cerebral infarction without residual deficits
CPT/HCPCS: 36415; 70450; 72125; 73000; 73030; 73562 ×2; 74176; 80053; 81001; 83690; 84484; 85025; 93005; 99285; J7030

== ENCOUNTER 2024-05-03 16:41 | Observation (INO) | payer MEDICARE ==
[~2024-05-03] VITALS: Ht 167.6 cm; Wt 111.6 kg
[2024-05-03 16:48] VITALS: TEMP 98.7
[2024-05-03 17:33] LABS: BASOPHILS % 0.2 % (0.0-1.0); EOSINOPHILS # (AUTO) 0.1 (0.0-0.4); EOSINOPHILS % 0.8 % (0.0-6.0); HEMATOCRIT 30.8 % (34.2-44.1); HEMOGLOBIN 9.5 g/dL (12.0-16.0); LYMPHOCYTES # (AUTO) 0.9 (1.0-3.2); MEAN CORPUSCULAR HEMOGLOBIN 32.1 pg (28-32); MEAN CORPUSCULAR HGB CONC 30.8 g/dL (31-35); MEAN CORPUSCULAR VOLUME 104.1 fL (81-99); MONOCYTES # (AUTO) 0.8 (0.2-0.8); NEUTROPHILS # (AUTO) 4.4 (2.1-6.9); NEUTROPHILS % 70.9 % (38.7-80.0); RED BLOOD COUNT 2.96 x10e6/uL (3.6-5.1); RED CELL DISTRIBUTION WIDTH 14.1 % (11.7-14.4); WHITE BLOOD COUNT 6.25 x10e3/uL (4.8-10.8)
[2024-05-03 17:40] LABS: INR 1.1; PARTIAL THROMBOPLASTIN TIME 32.8 seconds (23.8-35.5); PROTHROMBIN TIME 14.8 seconds (11.9-14.5)
[2024-05-03 17:46] LABS: PLATELET COUNT 146 x10e3/uL (140-360)
[2024-05-03 17:51] LABS: ALBUMIN 3.1 g/dL (3.5-5.0); ANION GAP 14.1 mmol/L (8-16); BILIRUBIN,TOTAL 0.8 mg/dL (0.2-1.2); CALCIUM 8.2 mg/dL (8.4-10.2); CREATININE, SERUM 0.87 mg/dL (0.57-1.11); TOTAL PROTEIN 6.3 g/dL (6.5-8.1)
[2024-05-03 17:55] LABS: POTASSIUM 3.1 mmol/L (3.5-5.1)
[2024-05-03 17:58] LABS: TROPONIN I 0.019 ng/mL (0-0.300)
[2024-05-03 21:25] VITALS: PULSE 64; RESP 18
[2024-05-03 21:47] VITALS: BP 160/53; PULSE 62; RESP 20; TEMP 98.6; O2SAT 96
[2024-05-03] MEDS: Morphine 4mg INJECTION 4 MG/ML INJ IV PRN (22:38)
[2024-05-03 22:40] VITALS: PULSE 62; RESP 18; O2SAT 96
[2024-05-04] VITALS: BP 153/72; PULSE 65; RESP 20; TEMP 98.6; O2SAT 96
[2024-05-04 01:48] LABS: TROPONIN I 0.02 ng/mL (0-0.300)
[2024-05-04 04:00] VITALS: BP 151/82; PULSE 69; RESP 20; TEMP 98.1; O2SAT 97
[2024-05-04 08:00] VITALS: BP 139/71; PULSE 60; RESP 17; TEMP 98.6; O2SAT 99
[2024-05-04 08:03] LABS: BASOPHILS % 0.2 % (0.0-1.0); EOSINOPHILS # (AUTO) 0.1 (0.0-0.4); EOSINOPHILS % 1.2 % (0.0-6.0); HEMATOCRIT 32.7 % (34.2-44.1); HEMOGLOBIN 9.8 g/dL (12.0-16.0); LYMPHOCYTES # (AUTO) 1.1 (1.0-3.2); LYMPHOCYTES % 16.3 % (18.0-39.1); MEAN CORPUSCULAR HEMOGLOBIN 31.5 pg (28-32); MEAN CORPUSCULAR VOLUME 105.1 fL (81-99); MONOCYTES # (AUTO) 0.7 (0.2-0.8); MONOCYTES % 10.9 % (4.4-11.3); NEUTROPHILS # (AUTO) 4.5 (2.1-6.9); NEUTROPHILS % 70.5 % (38.7-80.0); PLATELET COUNT 142 x10e3/uL (140-360); RED BLOOD COUNT 3.11 x10e6/uL (3.6-5.1); RED CELL DISTRIBUTION WIDTH 13.8 % (11.7-14.4); WHITE BLOOD COUNT 6.44 x10e3/uL (4.8-10.8)
[2024-05-04 08:34] LABS: TROPONIN I 0.016 ng/mL (0-0.300)
[2024-05-04 08:53] LABS: ALBUMIN 3.2 g/dL (3.5-5.0); ANION GAP 15.4 mmol/L (8-16); BILIRUBIN,TOTAL 0.9 mg/dL (0.2-1.2); CALCIUM 8.6 mg/dL (8.4-10.2); CREATININE, SERUM 0.86 mg/dL (0.57-1.11); TOTAL PROTEIN 6.5 g/dL (6.5-8.1)
[2024-05-04 08:58] LABS: POTASSIUM 3.4 mmol/L (3.5-5.1)
[2024-05-04] MEDS: ONDANSETRON HCL INJ 2MG/ML 2ML 2 MG/ML VIAL IV PRN (09:26)
[2024-05-04 10:32] VITALS: PULSE 82; RESP 18; O2SAT 94
[2024-05-04] MEDS ORDERED: ALBUTEROL 90 MCG/ACT INHALER INH PRN (10:45)
[2024-05-04] MEDS ORDERED: ONDANSETRON HCL 4 MG ORAL DISINTEGRATING TAB PO PRN (10:45)
[2024-05-04] MEDS ORDERED: BACLOFEN 10 MG TAB PO PRN (10:45)
[2024-05-04] MEDS ORDERED: ALBUTEROL SULF 0.083% NEB SOLN 3 ML NEB NEB PRN (10:45)
[2024-05-04 11:02] VITALS: BP 139/71; PULSE 82; RESP 18; TEMP 98.6; O2SAT 94
[2024-05-04] MEDS ORDERED: INSULIN REGULAR, HUMAN 100 UNIT/1 ML SQ SCH (11:30)
[2024-05-04 11:56] VITALS: BP 120/55; PULSE 88; RESP 16; TEMP 99.1; O2SAT 99
[2024-05-04] MEDS ORDERED: FLUTICASONE PROPIONATE NASAL SPRAY NS SCH (17:00)
[2024-05-04] MEDS ORDERED: BUDESONIDE/FORMOTEROL 160/4.5MCG INHALER INH SCH (17:00)
[2024-05-04] MEDS ORDERED: GABAPENTIN 300 MG CAP PO SCH (17:00)
[2024-05-04] MEDS ORDERED: MONTELUKAST SODIUM 10 MG TAB PO SCH (21:00)
[2024-05-04] MEDS ORDERED: ATORVASTATIN 40 MG TAB PO SCH (21:00)
[2024-05-05] MEDS ORDERED: LEVOTHYROXINE SODIUM 125 MCG TAB PO SCH (06:00)
[2024-05-05] MEDS ORDERED: AMLODIPINE BESYLATE 10 MG TAB PO SCH (09:00)
[2024-05-05] MEDS ORDERED: VENLAFAXINE HCL 75 MG TAB PO SCH (09:00)
[2024-05-05] MEDS ORDERED: HYDROCHLOROTHIAZIDE 25 MG TAB PO SCH (09:00)
[2024-05-05] MEDS ORDERED: CLOPIDOGREL BISULFATE 75 MG TAB PO SCH (09:00)
[2024-05-05] MEDS ORDERED: ASPIRIN 325 MG TAB EC PO SCH (09:00)
[2024-05-05] MEDS ORDERED: FUROSEMIDE 40 MG TAB PO SCH (09:00)
[2024-05-05] MEDS ORDERED: PANTOPRAZOLE SOD 40 MG TABEC PO SCH (09:00)
== END 2024-05-04 13:00 | disposition home or self-care (01) ==
LOC: ER 17:48 → ERHOLD 20:47 → MED/SURG 22:08
PROVIDERS: ADMIT Internal Medicine; ATTEND Internal Medicine
DX: R07.9 Chest pain, unspecified (principal); R09.02 Hypoxemia; J44.9 Chronic obstructive pulmonary disease, unspecified; Z99.81 Dependence on supplemental oxygen; I10 Essential (primary) hypertension; E03.9 Hypothyroidism, unspecified; K21.9 Gastro-esophageal reflux disease without esophagitis; E78.00 Pure hypercholesterolemia, unspecified; E11.9 Type 2 diabetes mellitus without complications; Z79.4 Long term (current) use of insulin; I69.898 Other sequelae of other cerebrovascular disease; R42 Dizziness and giddiness; R53.81 Other malaise; I44.0 Atrioventricular block, first degree; Z79.02 Long term (current) use of antithrombotics/antiplatelets; Z79.82 Long term (current) use of aspirin; Z79.899 Other long term (current) drug therapy
CPT/HCPCS: 36415; 71045; 71250; 74176; 80053 ×2; 82550 ×2; 83735; 83880; 84484 ×2; 85025 ×2; 85610; 85730; 93005; 94799 ×2; 99284; G0378 ×2; J2270 ×2; J2405; J2470

== ENCOUNTER 2024-07-18 07:39 | Emergency (ER) | payer MEDICARE ==
[~2024-07-18] VITALS: Ht 167.6 cm; Wt 111.6 kg
[2024-07-18 07:46] VITALS: TEMP 98.8
[2024-07-18 08:30] VITALS: PULSE 65; RESP 18; O2SAT 100
[2024-07-18] MEDS: KETOROLAC TROMETHAMINE 30 MG/ML VIAL IM STA (09:27)
[2024-07-18] MEDS ORDERED: ULTRAM 50MG50 MG PO (10:18)
== END 2024-07-18 10:47 | disposition home or self-care (01) ==
LOC: ER 07:49
DX: S43.102A Unspecified dislocation of left acromioclavicular joint, initial encounter (principal); W06.XXXA Fall from bed, initial encounter; Y92.89 Other specified places as the place of occurrence of the external cause; I10 Essential (primary) hypertension; E11.9 Type 2 diabetes mellitus without complications; J44.9 Chronic obstructive pulmonary disease, unspecified; I50.9 Heart failure, unspecified; I48.91 Unspecified atrial fibrillation; Z86.73 Personal history of transient ischemic attack (TIA), and cerebral infarction without residual deficits
CPT/HCPCS: 70450; 71250; 72125; 73030; 99283; J1885

== ENCOUNTER 2024-08-14 10:52 | Observation (INO) | payer MEDICARE ==
[~2024-08-14] VITALS: Ht 167.6 cm; Wt 111.6 kg
[2024-08-14 10:57] VITALS: TEMP 98.3
[2024-08-14] MEDS ORDERED: SODIUM CHLORIDE FLUSH 10 ML SYR IV PRN (11:00)
[2024-08-14 11:33] LABS: BASOPHILS % 0.1 % (0.0-1.0); EOSINOPHILS # (AUTO) 0.1 (0.0-0.4); EOSINOPHILS % 1.7 % (0.0-6.0); HEMATOCRIT 37.8 % (34.2-44.1); LYMPHOCYTES # (AUTO) 1.3 (1.0-3.2); LYMPHOCYTES % 18.9 % (18.0-39.1); MEAN CORPUSCULAR HEMOGLOBIN 30.9 pg (28-32); MEAN CORPUSCULAR HGB CONC 31.7 g/dL (31-35); MEAN CORPUSCULAR VOLUME 97.4 fL (81-99); MONOCYTES # (AUTO) 0.6 (0.2-0.8); MONOCYTES % 8.6 % (4.4-11.3); NEUTROPHILS # (AUTO) 4.9 (2.1-6.9); NEUTROPHILS % 69.8 % (38.7-80.0); PLATELET COUNT 153 x10e3/uL (140-360); RED BLOOD COUNT 3.88 x10e6/uL (3.6-5.1); RED CELL DISTRIBUTION WIDTH 13.8 % (11.7-14.4); WHITE BLOOD COUNT 6.97 x10e3/uL (4.8-10.8)
[2024-08-14] MEDS: ASPIRIN 81 MG CHEW TAB PO ONE (11:34)
[2024-08-14 11:57] LABS: ALBUMIN 3.6 g/dL (3.5-5.0); ALBUMIN/GLOBULIN RATIO 1.2 (0.8-2.0); BILIRUBIN,TOTAL 0.4 mg/dL (0.2-1.2); CALCIUM 8.5 mg/dL (8.4-10.2); CREATININE, SERUM 0.88 mg/dL (0.57-1.11); TOTAL PROTEIN 6.7 g/dL (6.5-8.1)
[2024-08-14 12:03] LABS: TROPONIN I 0.002 ng/mL (0-0.300)
[2024-08-14] MEDS ORDERED: ONDANSETRON HCL INJ 2MG/ML 2ML 2 MG/ML VIAL IV PRN (12:30)
[2024-08-14] MEDS ORDERED: SODIUM CHLORIDE FLUSH 10 ML SYR INJ PRN (12:30)
[2024-08-14] MEDS: HYDRALAZINE HCL 20 MG/ML VIAL IV STA (12:49)
[2024-08-14 13:00] VITALS: PULSE 65; RESP 23
[2024-08-14] MEDS ORDERED: METOPROLOL TARTRATE INJ 1 MG/ML VIAL IV PRN (14:30)
[2024-08-14] MEDS ORDERED: DEXTROSE 50% SYRINGE 50 ML IV PRN (14:30)
[2024-08-14] MEDS ORDERED: DOCUSATE SODIUM 100 MG CAP PO PRN (14:30)
[2024-08-14] MEDS ORDERED: ALBUTEROL/IPRATROPIUM 3 ML NEB NEB PRN (14:30)
[2024-08-14] MEDS ORDERED: SIMETHICONE 80 MG CHEW PO PRN (14:30)
[2024-08-14 15:56] VITALS: BP 123/82; PULSE 62; RESP 18; TEMP 97.5; O2SAT 100
[2024-08-14 16:03] LABS: CHOL/HDL RATIO 4.6 (3.0-3.6)
[2024-08-14] MEDS: INSULIN REGULAR, HUMAN 100 UNIT/1 ML SQ SCH (16:30)
[2024-08-14] MEDS: METOPROLOL TARTRATE 25 MG TAB PO SCH (17:00)
[2024-08-14] MEDS: CALCIUM CARBONATE 500 MG CHEWABLE TABS PO SCH (17:35)
[2024-08-14] MEDS: GABAPENTIN 300 MG CAP PO SCH (17:36)
[2024-08-14 20:00] VITALS: BP 154/72; PULSE 61; RESP 20; TEMP 97.1; O2SAT 100
[2024-08-14] MEDS: ATORVASTATIN 20 MG TAB PO SCH (20:31)
[2024-08-14] MEDS: MONTELUKAST SODIUM 10 MG TAB PO SCH (20:31)
[2024-08-14] MEDS ORDERED: MELATONIN 3 MG TAB PO PRN (21:00)
[2024-08-14 21:57] LABS: CREATINE KINASE 37 IU/L (29-168)
[2024-08-14 21:59] LABS: TROPONIN I < 0.001 ng/mL (0-0.300)
[2024-08-14 22:28] VITALS: BP 123/82; PULSE 62; RESP 18; TEMP 97.5; O2SAT 100
[2024-08-15] VITALS: BP 140/59; PULSE 56; RESP 21; TEMP 97.2; O2SAT 100
[2024-08-15 04:00] VITALS: BP 121/54; PULSE 56; RESP 20; TEMP 97.2; O2SAT 98
[2024-08-15] MEDS: LEVOTHYROXINE SODIUM 125 MCG TAB PO SCH (05:26)
[2024-08-15 05:29] LABS: BASOPHILS % 0.1 % (0.0-1.0); EOSINOPHILS # (AUTO) 0.1 (0.0-0.4); EOSINOPHILS % 1.9 % (0.0-6.0); HEMATOCRIT 34.1 % (34.2-44.1); LYMPHOCYTES # (AUTO) 1.5 (1.0-3.2); LYMPHOCYTES % 21.2 % (18.0-39.1); MEAN CORPUSCULAR HEMOGLOBIN 31.2 pg (28-32); MEAN CORPUSCULAR HGB CONC 32.3 g/dL (31-35); MEAN CORPUSCULAR VOLUME 96.6 fL (81-99); MONOCYTES # (AUTO) 0.8 (0.2-0.8); MONOCYTES % 10.7 % (4.4-11.3); NEUTROPHILS # (AUTO) 4.7 (2.1-6.9); NEUTROPHILS % 65.4 % (38.7-80.0); PLATELET COUNT 155 x10e3/uL (140-360); RED BLOOD COUNT 3.53 x10e6/uL (3.6-5.1); RED CELL DISTRIBUTION WIDTH 14.1 % (11.7-14.4); WHITE BLOOD COUNT 7.21 x10e3/uL (4.8-10.8)
[2024-08-15 06:26] LABS: TROPONIN I 0.006 ng/mL (0-0.300)
[2024-08-15 06:44] LABS: ALBUMIN 3.3 g/dL (3.5-5.0); ALBUMIN/GLOBULIN RATIO 1.2 (0.8-2.0); ANION GAP 14.1 mmol/L (8-16); BILIRUBIN,TOTAL 0.5 mg/dL (0.2-1.2); CALCIUM 8.4 mg/dL (8.4-10.2); CREATININE, SERUM 0.97 mg/dL (0.57-1.11); POTASSIUM 4.1 mmol/L (3.5-5.1)
[2024-08-15 08:00] VITALS: BP 148/69; PULSE 54; RESP 20; TEMP 98.2; O2SAT 100
[2024-08-15] MEDS: ASPIRIN 81 MG CHEW TAB PO SCH (09:57)
[2024-08-15] MEDS: CLOPIDOGREL BISULFATE 75 MG TAB PO SCH (09:57)
[2024-08-15] MEDS: VENLAFAXINE HCL 75 MG TAB PO SCH (09:59)
[2024-08-15] MEDS: AMLODIPINE BESYLATE 10 MG TAB PO SCH (09:59)
[2024-08-15] MEDS: FUROSEMIDE 40 MG TAB PO SCH (10:00)
[2024-08-15] MEDS: ACETAMINOPHEN 325 MG TAB PO PRN (10:01)
[2024-08-15] MEDS: ENOXAPARIN SOD INJ 40 MG/0.4 ML SYR SC SCH (10:02)
[2024-08-15 12:00] VITALS: BP 159/83; PULSE 62; RESP 22; TEMP 98; O2SAT 99
[2024-08-15] MEDS ORDERED: MELOXICAM7.5 MG PO (12:12)
[2024-08-15] MEDS: Morphine 4mg INJECTION 4 MG/ML INJ IV PRN (13:37)
== END 2024-08-15 18:16 | disposition home or self-care (01) ==
LOC: ER 10:55 → ERHOLD 12:27 → MED/SURG2 13:20
PROVIDERS: ADMIT Internal Medicine; ATTEND Internal Medicine
DX: R07.89 Other chest pain (principal); R09.89 Other specified symptoms and signs involving the circulatory and respiratory systems; I44.4 Left anterior fascicular block; I44.1 Atrioventricular block, second degree; I11.0 Hypertensive heart disease with heart failure; I50.9 Heart failure, unspecified; I48.91 Unspecified atrial fibrillation; J44.9 Chronic obstructive pulmonary disease, unspecified; K21.9 Gastro-esophageal reflux disease without esophagitis; E03.9 Hypothyroidism, unspecified; E11.40 Type 2 diabetes mellitus with diabetic neuropathy, unspecified; Z79.4 Long term (current) use of insulin; Z79.84 Long term (current) use of oral hypoglycemic drugs; E66.01 Morbid (severe) obesity due to excess calories; Z68.39 Body mass index [BMI] 39.0-39.9, adult; M26.609 Unspecified temporomandibular joint disorder, unspecified side; G89.29 Other chronic pain; F39 Unspecified mood [affective] disorder; Z79.02 Long term (current) use of antithrombotics/antiplatelets; Z79.899 Other long term (current) drug therapy; Z79.82 Long term (current) use of aspirin
CPT/HCPCS: 36415 ×2; 71045; 80053 ×2; 80061; 82550 ×2; 82948 ×2; 83036; 83880; 84484 ×2; 85025 ×2; 93005; 93306; 94760; 99284; G0378 ×2; J0360; J1650; J2270; J2470 ×2; J2405

== ENCOUNTER 2024-09-11 13:00 | Emergency (ER) | payer MEDICARE ==
[~2024-09-11] VITALS: Ht 165.1 cm; Wt 131.5 kg
[~2024-09-11 13:00] MED LIST changes: +MELOXICAM7.5 MG PO
[2024-09-11 13:46] LABS: BASOPHILS % 0.1 % (0.0-1.0); EOSINOPHILS # (AUTO) 0.1 (0.0-0.4); EOSINOPHILS % 1.5 % (0.0-6.0); HEMATOCRIT 35.8 % (34.2-44.1); HEMOGLOBIN 11.4 g/dL (12.0-16.0); LYMPHOCYTES # (AUTO) 1.3 (1.0-3.2); LYMPHOCYTES % 17.5 % (18.0-39.1); MEAN CORPUSCULAR HGB CONC 31.8 g/dL (31-35); MEAN CORPUSCULAR VOLUME 97.3 fL (81-99); MONOCYTES # (AUTO) 0.7 (0.2-0.8); MONOCYTES % 9.9 % (4.4-11.3); NEUTROPHILS % 70.3 % (38.7-80.0); PLATELET COUNT 151 x10e3/uL (140-360); RED BLOOD COUNT 3.68 x10e6/uL (3.6-5.1); RED CELL DISTRIBUTION WIDTH 13.9 % (11.7-14.4); WHITE BLOOD COUNT 7.16 x10e3/uL (4.8-10.8)
[2024-09-11 14:13] LABS: ALBUMIN 3.4 g/dL (3.5-5.0); ALBUMIN/GLOBULIN RATIO 1.2 (0.8-2.0); ANION GAP 14.2 mmol/L (8-16); BILIRUBIN,TOTAL 0.6 mg/dL (0.2-1.2); CALCIUM 8.3 mg/dL (8.4-10.2); CREATININE, SERUM 0.92 mg/dL (0.57-1.11); MAGNESIUM 1.8 MG/DL (1.3-2.1); POTASSIUM 4.2 mmol/L (3.5-5.1); TOTAL PROTEIN 6.3 g/dL (6.5-8.1)
[2024-09-11 14:21] LABS: TROPONIN I 0.006 ng/mL (0-0.300)
[2024-09-11 16:14] VITALS: PULSE 61
[2024-09-11 18:20] VITALS: RESP 18
[2024-09-11 20:59] VITALS: PULSE 73; RESP 20; TEMP 97.8; O2SAT 98
== END 2024-09-11 21:01 | disposition home or self-care (01) ==
LOC: ER 13:25
DX: M79.662 Pain in left lower leg (principal); R07.89 Other chest pain; I10 Essential (primary) hypertension; E11.9 Type 2 diabetes mellitus without complications; J44.9 Chronic obstructive pulmonary disease, unspecified; I50.9 Heart failure, unspecified; E78.5 Hyperlipidemia, unspecified; I48.91 Unspecified atrial fibrillation; K21.9 Gastro-esophageal reflux disease without esophagitis; R94.31 Abnormal electrocardiogram [ECG] [EKG]; Z86.73 Personal history of transient ischemic attack (TIA), and cerebral infarction without residual deficits
CPT/HCPCS: 36415; 71045; 80053; 83735; 83880; 84484; 85025; 85379; 93005; 93970; 99284

== ENCOUNTER 2024-10-20 20:52 | Inpatient (IN) | payer MEDICARE ==
[~2024-10-20] VITALS: Ht 165.1 cm; Wt 131.5 kg
[2024-10-20 20:55] VITALS: TEMP 98.5
[2024-10-20 21:38] LABS: BASOPHILS % 0.1 % (0.0-1.0); EOSINOPHILS # (AUTO) 0.2 (0.0-0.4); EOSINOPHILS % 2.4 % (0.0-6.0); HEMATOCRIT 34.7 % (34.2-44.1); HEMOGLOBIN 11.1 g/dL (12.0-16.0); LYMPHOCYTES # (AUTO) 1.5 (1.0-3.2); LYMPHOCYTES % 15.5 % (18.0-39.1); MEAN CORPUSCULAR HEMOGLOBIN 30.6 pg (28-32); MEAN CORPUSCULAR VOLUME 95.6 fL (81-99); MONOCYTES % 10.2 % (4.4-11.3); NEUTROPHILS # (AUTO) 6.9 (2.1-6.9); NEUTROPHILS % 70.9 % (38.7-80.0); PLATELET COUNT 129 x10e3/uL (140-360); RED BLOOD COUNT 3.63 x10e6/uL (3.6-5.1); RED CELL DISTRIBUTION WIDTH 13.4 % (11.7-14.4); WHITE BLOOD COUNT 9.68 x10e3/uL (4.8-10.8)
[2024-10-20 22:06] LABS: ALBUMIN/GLOBULIN RATIO 1.3 (0.8-2.0); ANION GAP 16.8 mmol/L (8-16); BILIRUBIN,TOTAL 0.5 mg/dL (0.2-1.2); CALCIUM 8.4 mg/dL (8.4-10.2); CREATININE, SERUM 0.96 mg/dL (0.57-1.11); POTASSIUM 3.8 mmol/L (3.5-5.1)
[2024-10-20] MEDS ORDERED: HYDRALAZINE HCL 20 MG/ML VIAL ONE (22:36)
[2024-10-20] MEDS: ONDANSETRON HCL INJ 2MG/ML 2ML 2 MG/ML VIAL IV STA ×2 (23:10→23:59)
[2024-10-20] MEDS: ACETAMINOPHEN 325 MG TAB PO ONE (23:10)
[2024-10-20] MEDS: HYDRALAZINE HCL 20 MG/ML VIAL IV STA (23:11)
[2024-10-20 23:27] LABS: BILIRUBIN,URINE NEGATIVE (NEGATIVE); CLARITY,URINE CLEAR (CLEAR); COLOR,URINE YELLOW (YELLOW); GLUCOSE, URINE NEGATIVE (NEGATIVE); KETONES,URINE NEGATIVE (NEGATIVE); LEUKOCYTE ESTERASE ,URINE NEGATIVE (NEGATIVE); NITRITE,URINE NEGATIVE (NEGATIVE); PH,URINE 7 (5 - 7); PROTEIN,URINE DIPSTICK NEGATIVE (NEGATIVE); URINE UROBILINOGEN 0.2 mg/dL (0.2 - 1)
[2024-10-20 23:34] LABS: BACTERIA,URINE FEW /HPF; EPITHELIAL CELLS,URINE FEW /LPF; RBC,URINE 0-5 /HPF (0-5); WBC,URINE (MAN) 0-5 /HPF (0-5)
[2024-10-21] VITALS (11 sets, daily range): BP systolic 127–164; BP diastolic 55–79; PULSE 68–101; RESP 16–20; TEMP 97.8–99.1; O2SAT 88–100
[2024-10-21] MEDS: Morphine 4mg INJECTION 4 MG/ML INJ IV ONE (00:10)
[2024-10-21] MEDS ORDERED: DEXTROSE 50% SYRINGE 50 ML IV PRN ×2 (00:15→08:45)
[2024-10-21] MEDS ORDERED: METOPROLOL TARTRATE INJ 1 MG/ML VIAL IV PRN (01:00)
[2024-10-21] MEDS ORDERED: CIPRO500 MG PO (01:50)
[2024-10-21] MEDS ORDERED: SYNTHROID125 MCG PO (01:50)
[2024-10-21] MEDS ORDERED: ELIQUIS5 MG PO (01:50)
[2024-10-21] MEDS ORDERED: ARICEPT5 MG PO (01:50)
[2024-10-21 07:09] LABS: TROPONIN I 0.012 ng/mL (0-0.300)
[2024-10-21] MEDS: INSULIN REGULAR, HUMAN 100 UNIT/1 ML SQ SCH (07:30)
[2024-10-21] MEDS: Morphine 4mg INJECTION 4 MG/ML INJ IV PRN (07:32)
[2024-10-21] MEDS: ONDANSETRON HCL INJ 2MG/ML 2ML 2 MG/ML VIAL IV PRN (07:32)
[2024-10-21] MEDS ORDERED: POTASSIUM CHLORIDE 20 MEQ TAB CR PO PRN (08:45)
[2024-10-21] MEDS ORDERED: SIMETHICONE 80 MG CHEW PO PRN (08:45)
[2024-10-21] MEDS ORDERED: DIPHENHYDRAMINE HCL 25 MG CAP PO PRN (08:45)
[2024-10-21] MEDS ORDERED: BENZONATATE 100 MG CAP PO PRN (08:45)
[2024-10-21] MEDS ORDERED: ALBUTEROL/IPRATROPIUM 3 ML NEB NEB PRN (08:45)
[2024-10-21] MEDS ORDERED: MELATONIN 5 MG TABLET PO PRN (08:45)
[2024-10-21] MEDS: AMLODIPINE BESYLATE 5 MG TAB PO SCH (11:00)
[2024-10-21 14:17] LABS: BASOPHILS % 0.1 % (0.0-1.0); EOSINOPHILS # (AUTO) 0.2 (0.0-0.4); EOSINOPHILS % 2.4 % (0.0-6.0); HEMATOCRIT 34.5 % (34.2-44.1); LYMPHOCYTES % 11.2 % (18.0-39.1); MEAN CORPUSCULAR HEMOGLOBIN 31.3 pg (28-32); MEAN CORPUSCULAR HGB CONC 31.9 g/dL (31-35); MONOCYTES # (AUTO) 0.7 (0.2-0.8); MONOCYTES % 8.2 % (4.4-11.3); NEUTROPHILS # (AUTO) 6.5 (2.1-6.9); NEUTROPHILS % 76.9 % (38.7-80.0); PLATELET COUNT 146 x10e3/uL (140-360); RED BLOOD COUNT 3.52 x10e6/uL (3.6-5.1); RED CELL DISTRIBUTION WIDTH 13.8 % (11.7-14.4); WHITE BLOOD COUNT 8.46 x10e3/uL (4.8-10.8)
[2024-10-21 14:42] LABS: ALBUMIN 3.7 g/dL (3.5-5.0); ALBUMIN/GLOBULIN RATIO 1.1 (0.8-2.0); ANION GAP 16.1 mmol/L (8-16); BILIRUBIN,TOTAL 0.6 mg/dL (0.2-1.2); CALCIUM 8.7 mg/dL (8.4-10.2); CREATININE, SERUM 0.95 mg/dL (0.57-1.11); POTASSIUM 4.1 mmol/L (3.5-5.1)
[2024-10-21 15:03] LABS: TROPONIN I 0.009 ng/mL (0-0.300)
[2024-10-21] MEDS ORDERED: ENOXAPARIN SOD INJ 40 MG/0.4 ML SYR SC SCH (17:00)
[2024-10-21] MEDS: CARVEDILOL 12.5 MG TAB PO SCH (17:00)
[2024-10-21] MEDS: HYDRALAZINE HCL 20 MG/ML VIAL IV PRN (17:38)
[2024-10-21] MEDS: APIXABAN 5 MG TABLET PO SCH (21:32)
[2024-10-21] MEDS: ACETAMINOPHEN 325 MG TAB PO PRN (21:32)
[2024-10-21] MEDS: ATORVASTATIN 40 MG TAB PO SCH (21:32)
[2024-10-22] VITALS (8 sets, daily range): BP systolic 128–161; BP diastolic 61–78; PULSE 62–72; RESP 15–20; TEMP 98.1–98.6; O2SAT 94–99
[2024-10-22 01:21] LABS: % IRON SATURATION 21 % (15-50); IRON 88 ug/dL (50-170); TOTAL IRON BINDING CAPACITY 426 ug/dL (261-478); TRANSFERRIN 304 mg/dL (180-382)
[2024-10-22] MEDS: LEVOTHYROXINE SODIUM 125 MCG TAB PO SCH (05:20)
[2024-10-22 06:23] LABS: BASOPHILS % 0.1 % (0.0-1.0); EOSINOPHILS # (AUTO) 0.2 (0.0-0.4); EOSINOPHILS % 2.3 % (0.0-6.0); HEMATOCRIT 31.6 % (34.2-44.1); HEMOGLOBIN 9.9 g/dL (12.0-16.0); LYMPHOCYTES # (AUTO) 1.2 (1.0-3.2); LYMPHOCYTES % 16.5 % (18.0-39.1); MEAN CORPUSCULAR HGB CONC 31.3 g/dL (31-35); MEAN CORPUSCULAR VOLUME 99.1 fL (81-99); MONOCYTES # (AUTO) 0.9 (0.2-0.8); MONOCYTES % 11.8 % (4.4-11.3); NEUTROPHILS # (AUTO) 4.9 (2.1-6.9); NEUTROPHILS % 67.8 % (38.7-80.0); PLATELET COUNT 133 x10e3/uL (140-360); RED BLOOD COUNT 3.19 x10e6/uL (3.6-5.1); RED CELL DISTRIBUTION WIDTH 13.6 % (11.7-14.4); WHITE BLOOD COUNT 7.27 x10e3/uL (4.8-10.8)
[2024-10-22 06:56] LABS: ANION GAP 14.1 mmol/L (8-16); CALCIUM 8.6 mg/dL (8.4-10.2); CREATININE, SERUM 0.86 mg/dL (0.57-1.11); POTASSIUM 4.1 mmol/L (3.5-5.1)
[2024-10-22 06:59] LABS: CHOL/HDL RATIO 2.7 (3.0-3.6)
[2024-10-22] MEDS ORDERED: PANTOPRAZOLE SOD 40 MG TABEC PO SCH (07:30)
[2024-10-22] MEDS: FUROSEMIDE 40 MG TAB PO SCH (09:10)
[2024-10-22] MEDS: DOCUSATE SODIUM 100 MG CAP PO PRN (09:10)
[2024-10-22] MEDS: DOCUSATE SODIUM 100 MG CAP PO ONE (11:03)
[2024-10-22] MEDS: CITRATE OF MAGNESIA 300ML BOTTLE PO ONE (11:03)
[2024-10-22] MEDS: BUDESONIDE/FORMOTEROL 160/4.5MCG INHALER INH SCH (17:00)
[2024-10-22] MEDS: GABAPENTIN 300 MG CAP PO SCH (17:37)
[2024-10-22] MEDS: CARVEDILOL 12.5 MG TAB PO SCH (17:37)
[2024-10-22] MEDS: DONEPEZIL HCL 5 MG TAB PO SCH (22:56)
[2024-10-22] MEDS: CYANOCOBALAMIN INJ 1,000 MCG/ML VIAL IM STA (22:57)
[2024-10-22] MEDS: APIXABAN 5 MG TABLET PO SCH (22:57)
[2024-10-23] VITALS (10 sets, daily range): BP systolic 108–144; BP diastolic 42–63; PULSE 58–62; RESP 18–20; TEMP 97.9–98.1; O2SAT 94–100
[2024-10-23] MEDS: CYANOCOBALAMIN INJ 1,000 MCG/ML VIAL IM SCH (07:45)
[2024-10-23] MEDS: CLOPIDOGREL BISULFATE 75 MG TAB PO SCH (07:45)
[2024-10-23] MEDS: VENLAFAXINE HCL 75 MG TAB PO SCH (07:45)
[2024-10-23] MEDS: APIXABAN 5 MG TABLET PO SCH (20:51)
[2024-10-24] VITALS (9 sets, daily range): BP systolic 131–143; BP diastolic 45–61; PULSE 50–65; RESP 18–20; TEMP 97.7–98.1; O2SAT 92–100
[2024-10-24] MEDS: LIDOCAINE 4% PATCH TP PRN (08:49)
[2024-10-25] VITALS (11 sets, daily range): BP systolic 114–139; BP diastolic 56–63; PULSE 51–110; RESP 14–20; TEMP 97.3–98.1; O2SAT 94–100
[2024-10-26] VITALS (12 sets, daily range): BP systolic 122–160; BP diastolic 56–66; PULSE 53–64; RESP 15–20; TEMP 97.5–98.8; O2SAT 93–100
[2024-10-26 08:33] LABS: EOSINOPHILS # (AUTO) 0.2 (0.0-0.4); EOSINOPHILS % 2.2 % (0.0-6.0); HEMATOCRIT 29.9 % (34.2-44.1); HEMOGLOBIN 9.3 g/dL (12.0-16.0); LYMPHOCYTES # (AUTO) 0.7 (1.0-3.2); LYMPHOCYTES % 9.6 % (18.0-39.1); MEAN CORPUSCULAR HEMOGLOBIN 31.1 pg (28-32); MEAN CORPUSCULAR HGB CONC 31.1 g/dL (31-35); MONOCYTES # (AUTO) 0.8 (0.2-0.8); MONOCYTES % 11.2 % (4.4-11.3); NEUTROPHILS # (AUTO) 5.2 (2.1-6.9); NEUTROPHILS % 76.3 % (38.7-80.0); PLATELET COUNT 117 x10e3/uL (140-360); RED BLOOD COUNT 2.99 x10e6/uL (3.6-5.1); RED CELL DISTRIBUTION WIDTH 12.8 % (11.7-14.4); WHITE BLOOD COUNT 6.77 x10e3/uL (4.8-10.8)
[2024-10-26 08:44] LABS: ANION GAP 13.9 mmol/L (8-16); CALCIUM 8.3 mg/dL (8.4-10.2); CREATININE, SERUM 1.01 mg/dL (0.57-1.11); POTASSIUM 3.9 mmol/L (3.5-5.1)
[2024-10-26] MEDS: FUROSEMIDE INJ 10 MG/ML 4 ML VIAL IV ONE (15:30)
[2024-10-26] MEDS: ACETAZOLAMIDE 250 MG TAB PO ONE (15:45)
[2024-10-27] VITALS (11 sets, daily range): BP systolic 137–162; BP diastolic 57–69; PULSE 55–68; RESP 16–20; TEMP 97.3–98.2; O2SAT 95–100
[2024-10-27 06:20] LABS: BASOPHILS % 0.2 % (0.0-1.0); EOSINOPHILS # (AUTO) 0.2 (0.0-0.4); EOSINOPHILS % 2.4 % (0.0-6.0); HEMATOCRIT 30.4 % (34.2-44.1); HEMOGLOBIN 9.5 g/dL (12.0-16.0); LYMPHOCYTES # (AUTO) 0.8 (1.0-3.2); LYMPHOCYTES % 12.3 % (18.0-39.1); MEAN CORPUSCULAR HEMOGLOBIN 31.3 pg (28-32); MEAN CORPUSCULAR HGB CONC 31.3 g/dL (31-35); MONOCYTES # (AUTO) 0.8 (0.2-0.8); MONOCYTES % 12.6 % (4.4-11.3); NEUTROPHILS # (AUTO) 4.8 (2.1-6.9); NEUTROPHILS % 71.4 % (38.7-80.0); PLATELET COUNT 126 x10e3/uL (140-360); RED BLOOD COUNT 3.04 x10e6/uL (3.6-5.1); RED CELL DISTRIBUTION WIDTH 13.2 % (11.7-14.4); WHITE BLOOD COUNT 6.66 x10e3/uL (4.8-10.8)
[2024-10-27 06:40] LABS: ANION GAP 15.5 mmol/L (8-16); CALCIUM 8.3 mg/dL (8.4-10.2); CREATININE, SERUM 0.97 mg/dL (0.57-1.11); POTASSIUM 3.5 mmol/L (3.5-5.1)
[2024-10-28] VITALS (11 sets, daily range): BP systolic 125–160; BP diastolic 47–71; PULSE 55–65; RESP 16–18; TEMP 97.5–98.3; O2SAT 95–100
[2024-10-28] MEDS: KETOROLAC TROMETHAMINE 30 MG/ML VIAL IV SCH (16:42)
[2024-10-29] VITALS (7 sets, daily range): BP systolic 124–141; BP diastolic 53–63; PULSE 52–63; RESP 17–21; TEMP 97.7–98.2; O2SAT 97–100
[2024-10-29] MEDS: MAGNESIUM HYDROXIDE 30 ML UDC PO ONE (02:34)
[2024-10-29] MEDS ORDERED: MAGNESIUM HYDROXIDE 30 ML UDC PO ONE (06:00)
[2024-10-29] MEDS: TRAMADOL HCL 50 MG TAB PO PRN (13:03)
[2024-10-29] MEDS ORDERED: COREG12.5 MG PO (14:35)
[2024-10-29] MEDS ORDERED: VITAMIN B-121000 MCG PO (15:18)
== END 2024-10-29 18:01 | disposition home health service (06) | DRG 392 ==
LOC: ER 20:54 → ERHOLD 10-21 00:03 → MED/SURG3 10-21 00:47 → OBSVTOIN 10-23 12:29
PROVIDERS: ADMIT Internal Medicine; ATTEND Internal Medicine
DX: K59.00 Constipation, unspecified (principal); E66.9 Obesity, unspecified; Z68.42 Body mass index [BMI] 45.0-49.9, adult; I11.0 Hypertensive heart disease with heart failure; I50.32 Chronic diastolic (congestive) heart failure; Z99.81 Dependence on supplemental oxygen; E11.9 Type 2 diabetes mellitus without complications; I48.91 Unspecified atrial fibrillation; E78.5 Hyperlipidemia, unspecified; D50.9 Iron deficiency anemia, unspecified; D35.02 Benign neoplasm of left adrenal gland; E03.9 Hypothyroidism, unspecified; E53.8 Deficiency of other specified B group vitamins; N20.0 Calculus of kidney; J44.9 Chronic obstructive pulmonary disease, unspecified; R10.10 Upper abdominal pain, unspecified; R53.81 Other malaise; K30 Functional dyspepsia; R14.2 Eructation; R11.2 Nausea with vomiting, unspecified; R32 Unspecified urinary incontinence; K21.9 Gastro-esophageal reflux disease without esophagitis; Z79.4 Long term (current) use of insulin; Z79.02 Long term (current) use of antithrombotics/antiplatelets; Z79.82 Long term (current) use of aspirin; Z79.890 Hormone replacement therapy; Z79.51 Long term (current) use of inhaled steroids; Z95.0 Presence of cardiac pacemaker; Z86.711 Personal history of pulmonary embolism; Z86.718 Personal history of other venous thrombosis and embolism; Z86.73 Personal history of transient ischemic attack (TIA), and cerebral infarction without residual deficits; Z90.49 Acquired absence of other specified parts of digestive tract; Z90.710 Acquired absence of both cervix and uterus; Z91.041 Radiographic dye allergy status; Z91.013 Allergy to seafood; Z88.8 Allergy status to other drugs, medicaments and biological substances
CPT/HCPCS: 36415; 70450; 71045; 74018; 74176; 80048; 80053; 80061; 81001; 82550; 82607; 82746; 82948; 83540; 83690; 83880; 84466; 84484; 85025; 85045; 93005; 93970; 94660; 94799; 99284; G0378; J0360; J1885; J1938; J2270; J2405; J2470; J3420

== ENCOUNTER 2024-12-09 15:48 | Inpatient (IN) | payer MEDICARE ==
[~2024-12-09] VITALS: Ht 157.5 cm; Wt 102.1 kg
[~2024-12-09 15:48] MED LIST changes: +ARICEPT5 MG PO; +CIPRO500 MG PO; +VITAMIN B-121000 MCG PO
[2024-12-09 16:00] VITALS: TEMP 98.9
[2024-12-09 16:30] LABS: BASOPHILS % 0.1 % (0.0-1.0); EOSINOPHILS # (AUTO) 0.1 (0.0-0.4); EOSINOPHILS % 1.1 % (0.0-6.0); HEMATOCRIT 35.5 % (34.2-44.1); HEMOGLOBIN 11.4 g/dL (12.0-16.0); LYMPHOCYTES # (AUTO) 1.3 (1.0-3.2); MEAN CORPUSCULAR HEMOGLOBIN 30.4 pg (28-32); MEAN CORPUSCULAR HGB CONC 32.1 g/dL (31-35); MEAN CORPUSCULAR VOLUME 94.7 fL (81-99); MONOCYTES # (AUTO) 0.7 (0.2-0.8); MONOCYTES % 8.6 % (4.4-11.3); NEUTROPHILS % 73.7 % (38.7-80.0); PLATELET COUNT 161 x10e3/uL (140-360); RED BLOOD COUNT 3.75 x10e6/uL (3.6-5.1); RED CELL DISTRIBUTION WIDTH 13.2 % (11.7-14.4); WHITE BLOOD COUNT 8.14 x10e3/uL (4.8-10.8)
[2024-12-09 16:37] LABS: INR 1.06; PROTHROMBIN TIME 14.8 seconds (11.9-14.5)
[2024-12-09 16:38] LABS: PARTIAL THROMBOPLASTIN TIME 30.9 seconds (23.8-35.5)
[2024-12-09 16:45] LABS: ALBUMIN 3.6 g/dL (3.5-5.0); ALBUMIN/GLOBULIN RATIO 1.1 (0.8-2.0); ANION GAP 14.6 mmol/L (8-16); BILIRUBIN,TOTAL 0.4 mg/dL (0.2-1.2); CALCIUM 8.9 mg/dL (8.4-10.2); CREATININE, SERUM 1.15 mg/dL (0.57-1.11); MAGNESIUM 1.9 MG/DL (1.3-2.1); POTASSIUM 3.6 mmol/L (3.5-5.1); TOTAL PROTEIN 6.9 g/dL (6.5-8.1)
[2024-12-09 16:51] LABS: TROPONIN I 0.01 ng/mL (0-0.300)
[2024-12-09 17:27] VITALS: PULSE 67; RESP 15
[2024-12-09 17:37] LABS: CLARITY,URINE HAZY (CLEAR); COLOR,URINE STRAW (YELLOW); GLUCOSE, URINE >=1000 (NEGATIVE); KETONES,URINE NEGATIVE (NEGATIVE); LEUKOCYTE ESTERASE ,URINE SMALL (NEGATIVE); NITRITE,URINE NEGATIVE (NEGATIVE); PH,URINE 5 (5 - 7); PROTEIN,URINE DIPSTICK NEGATIVE (NEGATIVE)
[2024-12-09 17:38] LABS: BILIRUBIN,URINE NEGATIVE (NEGATIVE); URINE UROBILINOGEN 0.2 mg/dL (0.2 - 1)
[2024-12-09 17:52] LABS: BACTERIA,URINE FEW /HPF; EPITHELIAL CELLS,URINE MODERATE /LPF; RBC,URINE 0-5 /HPF (0-5)
[2024-12-09 23:38] VITALS: BP 155/60; PULSE 58; RESP 18; TEMP 97.8; O2SAT 100
[2024-12-10] VITALS (10 sets, daily range): BP systolic 133–164; BP diastolic 57–80; PULSE 56–61; RESP 16–20; TEMP 97.8–98.2; O2SAT 95–100
[2024-12-10] MEDS ORDERED: JARDIANCE10 MG (02:43)
[2024-12-10] MEDS ORDERED: JARDIANCE10 MG PO (02:58)
[2024-12-10 05:46] LABS: BASOPHILS % 0.1 % (0.0-1.0); EOSINOPHILS # (AUTO) 0.1 (0.0-0.4); EOSINOPHILS % 1.6 % (0.0-6.0); HEMATOCRIT 33.6 % (34.2-44.1); HEMOGLOBIN 10.8 g/dL (12.0-16.0); LYMPHOCYTES # (AUTO) 1.5 (1.0-3.2); MEAN CORPUSCULAR HEMOGLOBIN 30.3 pg (28-32); MEAN CORPUSCULAR HGB CONC 32.1 g/dL (31-35); MEAN CORPUSCULAR VOLUME 94.1 fL (81-99); MONOCYTES # (AUTO) 0.7 (0.2-0.8); MONOCYTES % 10.3 % (4.4-11.3); NEUTROPHILS # (AUTO) 4.6 (2.1-6.9); NEUTROPHILS % 65.6 % (38.7-80.0); PLATELET COUNT 141 x10e3/uL (140-360); RED BLOOD COUNT 3.57 x10e6/uL (3.6-5.1); RED CELL DISTRIBUTION WIDTH 13.2 % (11.7-14.4); WHITE BLOOD COUNT 6.99 x10e3/uL (4.8-10.8)
[2024-12-10 06:16] LABS: ALBUMIN 3.3 g/dL (3.5-5.0); ALBUMIN/GLOBULIN RATIO 1.1 (0.8-2.0); ANION GAP 13.5 mmol/L (8-16); BILIRUBIN,TOTAL 0.4 mg/dL (0.2-1.2); CALCIUM 8.6 mg/dL (8.4-10.2); CREATININE, SERUM 1.09 mg/dL (0.57-1.11); POTASSIUM 3.5 mmol/L (3.5-5.1); TOTAL PROTEIN 6.2 g/dL (6.5-8.1)
[2024-12-10 06:37] LABS: TROPONIN I 0.014 ng/mL (0-0.300)
[2024-12-10] MEDS ORDERED: DEXTROSE 50% SYRINGE 50 ML IV PRN (09:45)
[2024-12-10] MEDS ORDERED: LIDOCAINE 4% PATCH TP PRN (09:45)
[2024-12-10] MEDS ORDERED: POTASSIUM CHLORIDE 20 MEQ TAB CR PO PRN (09:45)
[2024-12-10] MEDS ORDERED: ALBUTEROL/IPRATROPIUM 3 ML NEB NEB PRN (09:45)
[2024-12-10] MEDS ORDERED: DOCUSATE SODIUM 100 MG CAP PO PRN (09:45)
[2024-12-10] MEDS ORDERED: HYDRALAZINE HCL 20 MG/ML VIAL IV PRN (09:45)
[2024-12-10] MEDS ORDERED: SIMETHICONE 80 MG CHEW PO PRN (09:45)
[2024-12-10] MEDS ORDERED: DIPHENHYDRAMINE HCL 25 MG CAP PO PRN (09:45)
[2024-12-10] MEDS: APIXABAN 5 MG TABLET PO SCH (10:29)
[2024-12-10] MEDS: CARVEDILOL 12.5 MG TAB PO SCH (10:30)
[2024-12-10 15:10] LABS: TROPONIN I 0.018 ng/mL (0-0.300)
[2024-12-10] MEDS: BUDESONIDE/FORMOTEROL 160/4.5MCG INHALER INH SCH (17:00)
[2024-12-10] MEDS ORDERED: APIXABAN 5 MG TABLET PO SCH (17:00)
[2024-12-10] MEDS: GABAPENTIN 300 MG CAP PO SCH (18:13)
[2024-12-10] MEDS: SODIUM CHLORIDE 0.9% 500ML 500 ML IV SCH (18:17)
[2024-12-10] MEDS ORDERED: MELATONIN 5 MG TABLET PO PRN (21:00)
[2024-12-10] MEDS: MONTELUKAST SODIUM 10 MG TAB PO SCH (21:21)
[2024-12-10] MEDS: DONEPEZIL HCL 5 MG TAB PO SCH (21:21)
[2024-12-10] MEDS: ATORVASTATIN 40 MG TAB PO SCH (21:22)
[2024-12-11] VITALS (9 sets, daily range): BP systolic 120–152; BP diastolic 56–63; PULSE 55–70; RESP 17–20; TEMP 97.4–98.6; O2SAT 96–100
[2024-12-11] MEDS: EMPAGLIFLOZIN 10 MG TABLET PO SCH (05:53)
[2024-12-11] MEDS: LEVOTHYROXINE SODIUM 125 MCG TAB PO SCH (05:56)
[2024-12-11 05:57] LABS: BASOPHILS % 0.1 % (0.0-1.0); EOSINOPHILS # (AUTO) 0.2 (0.0-0.4); EOSINOPHILS % 2.2 % (0.0-6.0); HEMATOCRIT 34.1 % (34.2-44.1); HEMOGLOBIN 10.7 g/dL (12.0-16.0); LYMPHOCYTES # (AUTO) 1.9 (1.0-3.2); LYMPHOCYTES % 25.2 % (18.0-39.1); MEAN CORPUSCULAR HEMOGLOBIN 29.9 pg (28-32); MEAN CORPUSCULAR HGB CONC 31.4 g/dL (31-35); MEAN CORPUSCULAR VOLUME 95.3 fL (81-99); MONOCYTES # (AUTO) 0.7 (0.2-0.8); MONOCYTES % 10.1 % (4.4-11.3); NEUTROPHILS # (AUTO) 4.6 (2.1-6.9); PLATELET COUNT 144 x10e3/uL (140-360); RED BLOOD COUNT 3.58 x10e6/uL (3.6-5.1); RED CELL DISTRIBUTION WIDTH 13.4 % (11.7-14.4); WHITE BLOOD COUNT 7.35 x10e3/uL (4.8-10.8)
[2024-12-11 06:31] LABS: ANION GAP 13.6 mmol/L (8-16); CALCIUM 8.8 mg/dL (8.4-10.2); CREATININE, SERUM 1.14 mg/dL (0.57-1.11); POTASSIUM 3.6 mmol/L (3.5-5.1)
[2024-12-11 06:57] LABS: TROPONIN I 0.015 ng/mL (0-0.300)
[2024-12-11] MEDS: PANTOPRAZOLE SOD 40 MG TABEC PO SCH (08:26)
[2024-12-11] MEDS: VENLAFAXINE HCL 75 MG TAB PO SCH (08:26)
[2024-12-11] MEDS ORDERED: CLOPIDOGREL BISULFATE 75 MG TAB PO SCH (09:00)
[2024-12-11] MEDS: BUDESONIDE/FORMOTEROL 160/4.5MCG INHALER INH SCH (09:43)
[2024-12-11] MEDS: ACETAMINOPHEN 325 MG TAB PO PRN (13:26)
[2024-12-11] MEDS: ONDANSETRON HCL INJ 2MG/ML 2ML 2 MG/ML VIAL IV PRN (14:58)
[2024-12-11] MEDS: Morphine 2mg Syringe 2 MG/ML SYR IV PRN (14:58)
[2024-12-12] VITALS (8 sets, daily range): BP systolic 119–141; BP diastolic 46–65; PULSE 57–63; RESP 17–19; TEMP 98–98.3; O2SAT 96–100
== END 2024-12-12 18:39 | disposition hospice, home (50) | DRG 312 ==
LOC: ER 16:14 → ERHOLD 18:10 → MED/SURG2 21:46 → OBSVTOIN 12-11 09:37
PROVIDERS: ADMIT Internal Medicine; ATTEND Internal Medicine
DX: I95.1 Orthostatic hypotension (principal); I50.32 Chronic diastolic (congestive) heart failure; N39.0 Urinary tract infection, site not specified; I49.5 Sick sinus syndrome; E78.5 Hyperlipidemia, unspecified; J45.909 Unspecified asthma, uncomplicated; E11.9 Type 2 diabetes mellitus without complications; J44.9 Chronic obstructive pulmonary disease, unspecified; K21.9 Gastro-esophageal reflux disease without esophagitis; E66.9 Obesity, unspecified; I11.0 Hypertensive heart disease with heart failure; E03.9 Hypothyroidism, unspecified; F03.90 Unspecified dementia, unspecified severity, without behavioral disturbance, psychotic disturbance, mood disturbance, and anxiety; E86.0 Dehydration; I48.91 Unspecified atrial fibrillation; Z86.73 Personal history of transient ischemic attack (TIA), and cerebral infarction without residual deficits; Z79.01 Long term (current) use of anticoagulants; Z79.82 Long term (current) use of aspirin; Z79.4 Long term (current) use of insulin; Z79.02 Long term (current) use of antithrombotics/antiplatelets; Z79.890 Hormone replacement therapy; Z95.0 Presence of cardiac pacemaker; Z88.8 Allergy status to other drugs, medicaments and biological substances; Z91.041 Radiographic dye allergy status; Z91.013 Allergy to seafood; Z86.718 Personal history of other venous thrombosis and embolism; Z81.8 Family history of other mental and behavioral disorders; Z82.49 Family history of ischemic heart disease and other diseases of the circulatory system; Z79.84 Long term (current) use of oral hypoglycemic drugs; R53.81 Other malaise
CPT/HCPCS: 36415; 70450; 71045; 80048; 80053; 81001; 82550; 82948; 83735; 83880; 84484; 85025; 85610; 85730; 87086; 93005; 93306; 93880; 94799; 99252; 99284; G0378; J2270; J2405; J2470; J2543; J7040